=== PATIENT | female | born 1985 | race African-American/Black ===

== ENCOUNTER → 2023-04-15 07:55 | Outpatient (BNVA) | payer OTHER, SELFPAY | PROVIDERS: PCP Internal Medicine; Visit Provider Physician Assistant Surgical ==

== ENCOUNTER → 2023-06-13 07:57 | Outpatient (BNVA) | payer OTHER, SELFPAY | PROVIDERS: PCP Internal Medicine; Visit Provider Physician Assistant Surgical ==

== ENCOUNTER → 2023-06-30 08:36 | Outpatient (BNVA) | payer OTHER, SELFPAY | PROVIDERS: PCP Internal Medicine; Visit Provider Surgery ==

== ENCOUNTER 2023-07-18 07:57 | Outpatient (AMB) | payer OTHER, SELFPAY ==
--- NOTE | 2023-07-18 14:42 | A.OFFVIS_ITS ---
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 HPI Details Start time: 2.37pm, End time: 3.16pm ?I spent 34 minutes speaking with the patient on the phone plus an additional 5 minutes reviewing and updating records for a total of 39 minutes HPI Comments History of Present Illness Details Previous weight loss efforts: Weight Watchers, Nutrisystem, Intermittent fasting Wakes up: 6am, Sleeps: 10pm Breakfast: 8.30am (landis, egg cheese, Icelandic muffin, avocado with bread) Lunch: 12pm (salads, soup) Dinner: 8pm (rice, fish, pasta) Snacks: 10am (hummus, cheese and crackers), 9pm (chips and chocolate) Exercise: Gym, has home Elliptical Fluids: Coffee (1 cup/day with cream and sugar), tea: none, soda: none, juice: daily (apple/orange juice), ETOH: 2/wk (rum or vodka) PFSH Medical History (Updated 07/18/23 @ 14:45 by Babak Jimenez MD) Insomnia Anxiety Depression Morbid obesity Surgical History (Updated 07/18/23 @ 14:45 by Babak Jimenez MD) History of delivery Hx of breast reduction, elective Social History (Updated 06/13/23 @ 08:28 by Shayna Wu CMA) Alcohol intake: current Alcohol intake frequency: a few times a week Alcohol type: wine Patient Tobacco Use Status: Never used Tobacco Use of substances other than those prescribed or required for medical reasons: No Assessment & Plan Assessment & Plan (1) Morbid obesity: Code(s): E66.01 - Morbid (severe) obesity due to excess calories Plan: 1.? Plan for lap sleeve gastrectomy. If diaphragmatic or ventral hernias are present at time of surgery, these will be repaired laparoscopically as well. Risks and complications were discussed in detail including possible conversion to an open procedure, anastomotic leak, bleeding requiring transfusion, small bowel obstruction, , DVT and pulmonary embolism, cardiac, or pulmonary complications, as ferry terminal agent complications such as anastomotic ulcer, insufficient weight loss and vitamin deficiencies. I emphasized the importance of close follow-up, adherence to instructions and good communication. 2. Nutritional counseling. Start with 2 CELEBRATE REBUILD protein (buy at [facility] [employer] [facility]) shakes (ONE scoop EACH in 8oz low fat unsweetened almond milk each) at 7am-9am and 10am-12pm, 2 protein bars (CELEBRATE protein bars, buy at [facility] [employer] [facility]) at 1pm-3pm and 4pm-6pm, dinner at 7pm (10 forks of protein and 10 forks of salad/vegetables) AND another HALF Celebrate protein bar after dinner at 9pm-10pm. So you do 2 protein shakes, 2.5 protein bars and one meal per day. Meal to include lean meat (beef, fish, pork, turkey, chicken), or nepalese yogurt, or egg whites, or beans with a salad with olive oil and fruits (berries, pears, apples, kiwi). Avoid salt, breads, potatoes, rice, pasta, desserts. 3. Each shake would be drunk slowly, like coffee in a period of 2 hours. You may add your coffee into your shakes, if flavors match. 4. Cut each bar in 4 pieces and eat each piece in 30min ?to make each bar last 2 hours. 5. I emphasized the importance of measuring accurately the food portion and measure it when serving the food in plate 6. The meal portions include 10 full-size forks of meat and 10 full-size forks of salad. You always eat the meat portion but you can replace up to 5 forks for salad/vegetables with rice, potatoes or pasta, or a fruit ?if you like. The less you do it the better weight loss will be. 7. One full-size fork is what it can be scooped on the fork without falling aside and not what can be bit with the fork. Use regular forks like those you find in a typical restaurant. 8.? Please send me weight measurements as soon as possible and then once a week. Always include your diet and exercise plan. 9. Start Elliptical with an incline of 2.0 and resistance of 4.0. Increase resistance by 1 every 3 min to a max resistance of 10.0, and repeat cycles for 300 calories. Goal is to burn 2000 calories per week on exercise, which means either 300 calories daily, or 400 calories 5 days per week, or 500 calories 4 days per week, or 650 calories 3 days per week. 10.?It is important of avoiding and for at least 18 months postoperatively and has been discussed at the infosession. 11. Goal is to lose at least 1.5-2lbs per week 12. Goal to lose 10% of your weight before surgery, which is about 25lbs. Ultimate weight goal: 229lbs before surgery 13. Please follow the diet plan exactly without any change. If you don't like something about the plan or you feel hungry you need to communicate with me so I can help you revise the plan. You should not change the plan yourself. Orders: Orders Hemoglobin A1c Today E66.01 - Morbid (severe) obesity due to excess calories H Pylori Breath Test Today E66.01 - Morbid (severe) obesity due to excess calories Comprehensive Met. Panel Today E66.01 - Morbid (severe) obesity due to excess calories Vitamin B12 and Folate Today E66.01 - Morbid (severe) obesity due to excess calories Zinc Today E66.01 - Morbid (severe) obesity due to excess calories Ferritin Today E66.01 - Morbid (severe) obesity due to excess calories XR chest 2V Today E66.01 - Morbid (severe) obesity due to excess calories FL upper GI w air Today E66.01 - Morbid (severe) obesity due to excess calories Insulin Today E66.01 - Morbid (severe) obesity due to excess calories Complete Blood Count Auto Diff Today E66.01 - Morbid (severe) obesity due to excess calories Lipid Panel Today E66.01 - Morbid (severe) obesity due to excess calories IRON PROFILE Today E66.01 - Morbid (severe) obesity due to excess calories C Reactive Protein Today E66.01 - Morbid (severe) obesity due to excess calories Vitamin B1 Today E66.01 - Morbid (severe) obesity due to excess calories Vitamin A Today E66.01 - Morbid (severe) obesity due to excess calories TSH reflex Free T4 Today E66.01 - Morbid (severe) obesity due to excess calories Vitamin D 25-OH Total Today E66.01 - Morbid (severe) obesity due to excess calories US abdomen comp w elastography Today E66.01 - Morbid (severe) obesity due to excess calories ECG 12 lead EKG Today E66.01 - Morbid (severe) obesity due to excess calories Referrals Behavioral Health Referral E66.01 - Morbid (severe) obesity due to excess calories Nutrition/Dietitian Referral E66.01 - Morbid (severe) obesity due to excess calories Telehealth Telehealth Location of provider rendering services: practice address Location of patient: address on file Patient Identification confirmed using: Name, : Yes Telehealth method: voice only Patient verbally consented to treatment: Yes Patient verbally consented to billing insurance company: Yes Patient informed of any privacy concerns related to visit: Yes Minutes spent on Phone/Video with Pt.: 39 Coding Level of Care Code Tele New Pt Level 3 (88351) Diagnoses Morbid obesity E66.01 Time Spent (min) 39
[2023-07-18 14:52] VITALS: BMI 40.5
== END 2023-07-18 15:17 | disposition home or self-care (01) ==
PROVIDERS: PCP Internal Medicine; Visit Provider Surgery
DX: E66.01 Morbid (severe) obesity due to excess calories (principal)
CPT/HCPCS: 99203

== ENCOUNTER → 2023-07-18 07:57 | Outpatient (BNVA) | payer OTHER, SELFPAY | PROVIDERS: PCP Internal Medicine; Visit Provider Surgery ==

== ENCOUNTER 2023-07-31 07:23 | Outpatient (REF) | payer OTHER, SELFPAY ==
[2023-07-31 07:41] LABS: MANUAL DIFF FLAG NO
[2023-07-31 07:52] LABS: Basophils Percent Auto 0.5 % (0-2); Eosinophils Absolute Auto 0.1 X10*3/uL (0.0-0.4); Eosinophils Percent Auto 0.9 % (0-4); Hematocrit 38.1 % (37.0-47.0); Hemoglobin 12.2 g/dl (12.0-16.0); Imm Gran Abs Auto 0.01 X10*3/uL (0.00-0.03); Imm Gran Pct Auto 0.2 % (0.0-0.4); Lymphocytes Absolute Auto 2.2 X10*3/uL (1.2-4.9); Lymphocytes Percent Auto 33.4 % (20-40); Mean Corpuscular Volume 87.6 fL (80.0-98.0); Mean Platelet Volume 9.9 fL (9.4-12.3); Monocytes Absolute Auto 0.4 X10*3/uL (0.1-1.2); Monocytes Percent Auto 5.9 % (2-11); Neutrophils Absolute Auto 3.8 x10*3/uL (2.0-8.3); Neutrophils Percent Auto 59.1 % (45-73); Platelet Count 261 X10*3/uL (160-400); Red Blood Count 4.35 X10*6/uL (4.20-5.50); Red Cell Distribution Width 13.1 % (11.0-16.0); White Blood Count 6.5 X10*3/uL (4.8-10.8)
[2023-07-31 08:01] LABS: Estimated Average Glucose 120 mg/dL; Hemoglobin A1c % 5.8 % (<6.0)
[2023-07-31 08:32] LABS: Alanine Aminotransferase 21 U/L (0-31); Alkaline Phosphatase 57 U/L (39-117); Anion Gap 14 (12-20); Aspartate Amino Transferase 19 U/L (5-31); Bilirubin Total 0.4 mg/dL (0.0-1.0); Blood Urea Nitrogen 12 mg/dL (9-16); C Reactive Protein 0.13 mg/dL (< or = 0.50); Calcium 9.2 mg/dL (8.4-10.2); Carbon Dioxide 23 mmol/L (22-29); Chloride 108 mmol/L (96-108); Cholesterol 165 mg/dL (<200); Estimated Glomerular Filt Rate > 60; Glucose Random 109 mg/dL (60-115); HDL Cholesterol 72 mg/dL (>40); Iron 118 mcg/dL (30-160); LDL Cholesterol Calculated 75 mg/dL (<100); Percent Iron Saturation 35 % (15-50); Potassium 3.8 mmol/L (3.3-5.1); Sodium 141 mmol/L (135-145); Total Iron Binding Capacity 337 mcg/dL (228-428); Total Protein 7.3 g/dL (6.5-8.0); Triglycerides 93 mg/dL (<150); Unsaturated Iron Binding 219 ug/dL
[2023-07-31 08:53] LABS: Folate 10.1 ng/mL (> or = 4.0); Vitamin B12 369 pg/mL (200-900)
[2023-07-31 08:57] LABS: Ferritin 120 ng/mL (10-122); TSH reflex Free T4 0.59 uIU/mL (0.32-4.0); Vitamin D 25-OH Total 15.7 ng/mL (>30)
[2023-07-31 09:08] LABS: Insulin 10 uU/mL (2-29)
[2023-08-02 15:59] LABS: Zinc 68 mcg/dL (60-130)
[2023-08-05 02:53] LABS: Vitamin A 50 mcg/dL (38-98)
[2023-08-05 15:48] LABS: Vitamin B1 <6 nmol/L (8-30)
== END 2023-07-31 07:24 | disposition home or self-care (01) ==
LOC: HO.LAB 07:23
PROVIDERS: PCP Internal Medicine; Visit Provider Surgery
DX: E66.01 Morbid (severe) obesity due to excess calories (principal)
CPT/HCPCS: 36415; 80053; 80061; 82306; 82607; 82728; 82746; 83036; 83525; 83540; 84425; 84443; 84590; 84630; 85025; 86140

== ENCOUNTER 2023-11-26 16:37 | Emergency (ER) | payer OTHER, SELFPAY ==
[2023-11-26 16:39] VITALS: BP 142/91; PULSE 79; RESP 18; TEMP 36.8; O2SAT 100; BMI 41.2
--- NOTE | 2023-11-26 16:52 | ED_ITS ---
HPI - General Adult General Chief complaint: Skin/Abscess/Foreign Body Stated complaint: earring stuck in ear, automatic teller machine servicer unable to remove Time Seen by Provider: 11/26/23 16:52 Source: patient Mode of arrival: ambulatory Limitations: no limitations History of Present Illness ED Provider: Madeleine Devries PA-C HPI narrative: 38-year-old female presents for evaluation of an earring stuck in her right tragus piercing. She was trying to take out a small hoop-shaped earring from the piercing but was unable to get the clasp open. Tried multiple times and had automatic teller machine servicer attempt to take it out but they were unsuccessful. Onset (ago): hour(s) Relieving factors: none Exacerbating factors: none Associated symptoms: denies other symptoms Treatments prior to arrival: other (multiple attempts at removal) Related Data Home Medications ?Medication ?Instructions ?Recorded ?Confirmed citalopram 20 mg tablet 20 mg PO DAILY 06/13/23 07/18/23 hydroxyzine HCl 50 mg tablet 50 mg PO TID 06/13/23 07/18/23 trazodone 50 mg tablet 50 mg PO BEDTIME 06/13/23 07/18/23 Previous Rx's ?Medication ?Instructions ?Recorded cholecalciferol (vitamin D3) 125 125 mcg PO DAILY #90 caps 11/04/23 mcg (5,000 unit) capsule mecobalamin (vitamin B12) 1,000 1,000 mcg sublingual DAILY #90 tabs 11/04/23 mcg disintegrating tablet,sublingual Allergies Allergy/AdvReac Type Severity Reaction Status Date / Time No Known Allergies Allergy Verified 11/26/23 16:41 Review of Systems 2 Constitutional: Constitutional: Reports no additional constitutional complaints, Denies chills, Denies fever(s) and Denies night sweats Eyes: Eyes: Reports no additional eye complaints, Denies blurry vision, Denies change in vision, Denies diplopia, Denies eye discharge, Denies loss of vision and Denies eye pain ENT: Denies dizziness Comments: tragus piercing stuck Cardiovascular: Cardiovascular: Reports no additional cardiovascular complaints, Denies chest pain, Denies lightheadedness, Denies Loss of Consciousness and Denies dyspnea Respiratory: Respiratory: Reports no additional respiratory complaints and Denies dyspnea Gastrointestinal: Gastrointestinal: Reports no additional gastrointestinal complaints, Denies abdominal pain, Denies melena, Denies hematochezia, Denies change in bowel habits and Denies change in stool character Genitourinary: Genitourinary: Denies hematuria, Denies urinary frequency, Denies dysuria, Denies urinary incontinence, Denies urinary hesitancy and Denies urinary urgency Musculoskeletal: Musculoskeletal: Reports no additional musculoskeletal complaints, Denies numbness and Denies tingling Neurologic: Denies dizziness, Denies loss of vision, Denies numbness and Denies tingling Psychiatric: Psychiatric: Reports no additional psychiatric complaints Endocrine: Endocrine: Reports no additional endocrine complaints Hematologic/Lymphatic: Hematologic/Lymphatic: Reports no additional hematologic/lymphatic complaints Allergic/Immunologic: Allergic/Immunologic: Reports no additional allergic/immunologic complaints [facility] Past Medical History Attestation statement: The following information was validated with the patient. Source: old records reviewed and nursing notes reviewed Medical History Insomnia Anxiety Depression Morbid obesity Surgical History History of delivery Hx of breast reduction, elective Social History Social History Alcohol intake: current Alcohol intake frequency: a few times a week Alcohol type: wine Patient Tobacco Use Status: Never used Tobacco Advance Directives: No Advance Directives Information Provided: No Physical Exam ED Vital Signs: Vital Signs - 24 hr 11/26/23 16:39 11/26/23 17:20 Temperature 98.3 F 98.3 F Pulse Rate 79 79 Respiratory Rate 18 18 Blood Pressure 142/91 H 142/91 H Pulse Oximetry 100 100 Oxygen Delivery Method Room Air Room Air BMI result Body Mass Index 41.2 Const General: cooperative, no acute distress, alert and awake Nutritional Appearance: well nourished Orientation/consciousness: patient oriented x3 Limitations: no limitations HENMT Head: Yes normal to inspection and Yes atraumatic Ears: hearing grossly normal bilaterally Outer ear/TM images: 2 1. tragus piercing that would not unclasp General nose exam: Normal external nose present, no nasal discharge noted and no epistaxis Face and sinus: Yes normal facial exam, No abrasion and No laceration Mouth: Normal oral and palatal mucosa present, no drooling and no muffled voice Eyes General: appearance normal, both eyes and all related structures Periorbital: periorbital findings normal Eyelids: Yes eyelids normal Conjunctivae: conjunctivae normal Pupils: Equal, round and reactive pupils present EOM: EOMs intact bilaterally Neck Neck: Yes normal visual inspection, Yes full ROM and Yes no lymphadenopathy Chest Chest palpation & inspection: normal inspection of the chest Resp Effort & Inspection: normal respiratory effort and able to speak in complete sentences GI Inspection: Yes normal to inspection Neuro General: patient oriented x3 and moves all extremities Cranial nerves: Yes Equal, round and reactive pupils present Cognition (Neuro): normal cognition Motor exam (neuro): 5/5 motor strength present throughout Sensory Exam: Normal double simultaneous stimulation for sensation Coordination: [id number] test normal Extrem General: Yes normal to inspection, Yes full ROM and Yes capillary refill normal Psych Appearance: grossly normal Mental Status: mental status grossly normal Affect: normal affect Attitude: cooperative Thought process: Normal thought process present Thought content: Normal thought content present Insight: Good insight present (Psych) Procedures Foreign Body Removal Time Out Performed: yes Site: right and ear Description of foreign body: other (piercing) Sedation/Analgesia: none Technique: manual removal Confirmed by:: direct visualization Complications: none Post-procedure exam: awake, alert, normal BP, normal HR and normal O2 sat Neurovascular: normal distal pulse, normal capillary fill, distal motor function normal, no signs of compartment syndrome and no change from pre-procedure Medical Decision Making Medical Decision Making MDM Narrative: Patient is a 38 year old assigned female at with a history of anxiety, depression, and insomnia presenting to the emergency department today with a stuck ear piercing. Patient's physical exam was as noted in the physical exam portion of this note. I explained my physical exam findings to the patient. I answered all questions asked by the patient. Patient's earring was removed, without incident, per procedure note. I stressed the importance of the patient taking her medication as prescribed. I stressed the importance of the patient following up with her primary care provider. I stressed the importance of the patient returning to the emergency department immediately if she were to develop any dizziness, shortness of breath, difficulty breathing, chest pain, blurry vision, loss of vision, nausea, vomiting, abdominal pain, fever, chills, back pain, or any other complaints. Patient verbalized agreement and understanding with this treatment plan and discharge. Differential Diagnosis Differential Diagnoses: The differential diagnosis associated with the presentation includes Retained foreign body in ear Inflammation of external ear Allergic reaction to earring Admission/Observation Consideration of admission/observation: Escalation of care including admission/observation considered Patient would have been admitted to the hospital had her clinical presentation warranted hospital admission. Discharge Plan Discharge Clinical Impression: Embedded earring Patient Disposition: Home, Self-Care Additional Instructions: Only place larger jewelry in your right tragus piercing until the swelling goes down. Follow up with your primary care provider. Return to the emergency department immediately if your symptoms worsen or if you develop any dizziness, shortness of breath, difficulty breathing, chest pain, blurry vision, loss of vision, nausea, vomiting, abdominal pain, fever, chills, back pain, or any other complaints. Prescriptions: No Action cholecalciferol (vitamin D3) 125 mcg (5,000 unit) capsule 125 mcg PO DAILY Qty: 90 0RF mecobalamin (vitamin B12) 1,000 mcg tablet,disintegrating 1,000 mcg sublingual DAILY Qty: 90 0RF Rx Instructions: place tablet under tongue and allow to dissolve for at least30 secs before swallowing citalopram 20 mg tablet 20 mg PO DAILY trazodone 50 mg tablet 50 mg PO BEDTIME hydroxyzine HCl 50 mg tablet 50 mg PO TID Referrals: Carlotta Wilkinson MD [Primary Care Provider] - Interventions: ED Discharge Assessment Last Done: 11/26/23 17:20 Discharge Date/Time: 11/26/23 17:21 Print Language: Lithuanian
[2023-11-26 17:20] VITALS: BP 142/91; PULSE 79; RESP 18; TEMP 36.8; O2SAT 100
== END 2023-11-26 17:21 | disposition home or self-care (01) ==
PROVIDERS: Emergency Provider Internal Medicine; PCP Internal Medicine
DX: T16.1XXA Foreign body in right ear, initial encounter (principal); H92.01 Otalgia, right ear; W44.D4XA Magnetic metal jewelry entering into or through a natural orifice, initial encounter; Y93.9 Activity, unspecified; Y92.9 Unspecified place or not applicable; Y99.8 Other external cause status
CPT/HCPCS: 69200; 99282; 99284

== ENCOUNTER → 2024-03-18 07:46 | Outpatient (BNVA) | payer OTHER, SELFPAY | PROVIDERS: PCP Internal Medicine; Visit Provider Surgery ==

== ENCOUNTER 2024-04-09 07:56 | Outpatient (AMB) | payer OTHER, SELFPAY ==
--- NOTE | 2024-04-09 08:12 | MHC.OFFVISWM ---
VS Expanded 04/09/24 08:28 Height 5 ft 6.5 in Weight 251 lb 8 oz BMI 40.0 Body Fat % 42.7 Body Fat Mass 107.6 Fat Free Mass 144.2 Visceral Fat Rating 11 Body Water % 40 Body Water Mass 100.8 Basal Metabolic Rate/Score 1,974 Intake Visit Reasons: TV Re-Est SWL BMI 40.0 Allergies No Known Allergies Allergy (Verified 04/09/24 08:12) Medication List - Last Reconciled 04/09/24 by Babak Jimenez MD citalopram 20 mg PO DAILY hydroxyzine HCl 50 mg PO TID trazodone 50 mg PO BEDTIME HPI HPI TV Re-Est SWL BMI 40.0: Details: Start time: 8.00am, End time: 8.30am ?I spent 25 minutes speaking with the patient on the phone plus an additional 5 minutes reviewing and updating records for a total of 30 minutes HPI Comments Details: Previous weight loss efforts: Weight Watchers, Nutrisystem, Intermittent fasting, [facility] (left the program, gained about 15lbs which she lost using Wegovy for 2 months. Wegovy had to be discontinued as insurance did not cover it any longer. Now she weighs as much as she weighed when she first came in the program Wakes up: 6am, Sleeps: 10pm Breakfast: 8.30am (landis, egg cheese, Hungarian muffin, avocado with bread) Lunch: 12pm (salads, soup) Dinner: 8pm (rice, fish, pasta) Snacks: 10am (hummus, cheese and crackers), 9pm (chips and chocolate) Exercise: Gym, has home Elliptical Fluids: Coffee (1 cup/day with cream and sugar), tea: none, soda: none, juice: daily (apple/orange juice), ETOH: 2/wk (rum or vodka) [facility] Medical History Insomnia Anxiety Depression Morbid obesity Surgical History History of delivery Hx of breast reduction, elective Social History Alcohol intake: current Alcohol intake frequency: a few times a week Alcohol type: wine Patient Tobacco Use Status: Never used Tobacco Telehealth Telehealth Telehealth Platform: Telephone Location of provider rendering services: practice address Location of patient: address on file Patient Identification confirmed using: Name, : Yes Telehealth method: voice only Patient verbally consented to treatment: Yes Patient verbally consented to billing insurance company: Yes Patient informed of any privacy concerns related to visit: Yes Minutes spent on Phone/Video with Pt.: 30 Assessment & Plan Assessment & Plan (1) Morbid obesity: Code(s): E66.01 - Morbid (severe) obesity due to excess calories Category: Medical Plan: 1.? Plan for lap sleeve gastrectomy. If diaphragmatic or ventral hernias are present at time of surgery, these will be repaired laparoscopically as well. Risks and complications were discussed in detail including possible conversion to an open procedure, anastomotic leak, bleeding requiring transfusion, small bowel obstruction, , DVT and pulmonary embolism, cardiac, or pulmonary complications, as intermodal customer service complications such as anastomotic ulcer, insufficient weight loss and vitamin deficiencies. I emphasized the importance of close follow-up, adherence to instructions and good communication. 2. Nutritional counseling. Start with 2 CELEBRATE REBUILD protein (buy at [facility]) shakes (ONE scoop EACH in 8oz low fat unsweetened almond milk each) at 7am-9am and 10am-12pm, 2 protein bars (CELEBRATE protein bars, buy at [facility] [employer] [facility]) at 1pm-3pm and 4pm-6pm, dinner at 7pm (10 forks of protein and 10 forks of salad/vegetables) AND another HALF Celebrate protein bar after dinner at 9pm-10pm. So you do 2 protein shakes, 2.5 protein bars and one meal per day. Meal to include lean meat (beef, fish, pork, turkey, chicken), or solomon islander yogurt, or egg whites, or beans with a salad with olive oil and fruits (berries, pears, apples, kiwi). Avoid salt, breads, potatoes, rice, pasta, desserts. 3. Each shake would be drunk slowly, like coffee in a period of 2 hours. You may add your coffee into your shakes, if flavors match. 4. Cut each bar in 4 pieces and eat each piece in 30min ?to make each bar last 2 hours. 5. I emphasized the importance of measuring accurately the food portion and measure it when serving the food in plate 6. The meal portions include 10 full-size forks of meat and 10 full-size forks of salad. You always eat the meat portion but you can replace up to 5 forks for salad/vegetables with rice, potatoes or pasta, or a fruit ?if you like. The less you do it the better weight loss will be. 7. One full-size fork is what it can be scooped on the fork without falling aside and not what can be bit with the fork. Use regular forks like those you find in a typical restaurant. 8.? Please send me weight measurements as soon as possible and then once a week. Always include your diet and exercise plan. 9. Start Elliptical with an incline of 2.0 and resistance of 4.0. Increase resistance by 1 every 3 min to a max resistance of 10.0, and repeat cycles for 300 calories. Goal is to burn 2000 calories per week on exercise, which means either 300 calories daily, or 400 calories 5 days per week, or 500 calories 4 days per week, or 650 calories 3 days per week. 10.?It is important of avoiding and for at least 18 months postoperatively and has been discussed at the infosession. 11. Goal is to lose at least 1.5-2lbs per week 12. Goal to lose 10% of your weight before surgery, which is about 25lbs. Ultimate weight goal: 229lbs before surgery 13. Please follow the diet plan exactly without any change. If you don't like something about the plan or you feel hungry you need to communicate with me so I can help you revise the plan. You should not change the plan yourself. Orders: Orders Lipid Panel Today E66.01 - Morbid (severe) obesity due to excess calories IRON PROFILE Today E66.01 - Morbid (severe) obesity due to excess calories Comprehensive Met. Panel Today E66.01 - Morbid (severe) obesity due to excess calories Vitamin B12 and Folate Today E66.01 - Morbid (severe) obesity due to excess calories Zinc Today E66.01 - Morbid (severe) obesity due to excess calories C Reactive Protein Today E66.01 - Morbid (severe) obesity due to excess calories Vitamin A Today E66.01 - Morbid (severe) obesity due to excess calories TSH reflex Free T4 Today E66.01 - Morbid (severe) obesity due to excess calories Vitamin D 25-OH Total Today E66.01 - Morbid (severe) obesity due to excess calories ECG 12 lead EKG Today E66.01 - Morbid (severe) obesity due to excess calories FL upper GI w air Today E66.01 - Morbid (severe) obesity due to excess calories Insulin Today E66.01 - Morbid (severe) obesity due to excess calories Hemoglobin A1c Today E66.01 - Morbid (severe) obesity due to excess calories H Pylori Breath Test Today E66.01 - Morbid (severe) obesity due to excess calories Complete Blood Count Auto Diff Today E66.01 - Morbid (severe) obesity due to excess calories Vitamin B1 Today E66.01 - Morbid (severe) obesity due to excess calories Ferritin Today E66.01 - Morbid (severe) obesity due to excess calories US abdomen comp w elastography Today E66.01 - Morbid (severe) obesity due to excess calories XR chest 2V Today E66.01 - Morbid (severe) obesity due to excess calories Referrals Behavioral Health Referral E66.01 - Morbid (severe) obesity due to excess calories Nutrition/Dietitian Referral E66.01 - Morbid (severe) obesity due to excess calories
[2024-04-09 08:28] VITALS: BMI 40.0
== END 2024-04-09 08:30 | disposition home or self-care (01) ==
LOC: HO.HBS 07:56
PROVIDERS: PCP Internal Medicine; Visit Provider Surgery
DX: E66.813 Obesity, class 3 (principal); Z68.41 Body mass index [BMI] 40.0-44.9, adult
CPT/HCPCS: 99443

== ENCOUNTER → 2024-04-09 07:56 | Outpatient (BNVA) | payer OTHER, SELFPAY | PROVIDERS: PCP Internal Medicine; Visit Provider Surgery ==

== ENCOUNTER 2024-04-16 07:30 | Outpatient (REF) | payer OTHER, SELFPAY ==
[2024-04-16 08:10] LABS: Basophils Percent Auto 0.3 % (0-2); Eosinophils Percent Auto 0.7 % (0-4); Hematocrit 36.9 % (37.0-47.0); Hemoglobin 12.1 g/dl (12.0-16.0); Imm Gran Abs Auto 0.02 X10*3/uL (0.00-0.03); Imm Gran Pct Auto 0.3 % (0.0-0.4); Lymphocytes Percent Auto 32.5 % (20-40); Mean Corpuscular HGB Conc 32.8 g/dl (31.0-35.0); Mean Corpuscular Hemoglobin 28.2 pg (27.0-33.0); Mean Platelet Volume 10.1 fL (9.4-12.3); Monocytes Absolute Auto 0.4 X10*3/uL (0.1-1.2); Monocytes Percent Auto 6.7 % (2-11); NRBC Pct Auto 0.3 /100WBC (0.0-0.2); Neutrophils Absolute Auto 3.7 x10*3/uL (2.0-8.3); Neutrophils Percent Auto 59.5 % (45-73); Red Blood Count 4.29 X10*6/uL (4.20-5.50); Red Cell Distribution Width 13.7 % (11.0-16.0)
[2024-04-16 08:11] LABS: Platelet Count 225 X10*3/uL (160-400); White Blood Count 6.1 X10*3/uL (4.8-10.8)
[2024-04-16 08:26] LABS: Estimated Average Glucose 114 mg/dL; Hemoglobin A1C 119.6717 umol/L; Hemoglobin A1c % 5.6 % (<6.0); Total Hemoglobin (HGBA1C) 3218.0834 umol/L
[2024-04-16 08:44] LABS: Alanine Aminotransferase 33 U/L (0-31); Albumin Level 3.9 g/dL (3.5-5.0); Alkaline Phosphatase 54 U/L (39-117); Anion Gap 13 (12-20); Aspartate Amino Transferase 28 U/L (5-31); Bilirubin Total 0.3 mg/dL (0.0-1.0); Blood Urea Nitrogen 8 mg/dL (9-16); C Reactive Protein 0.11 mg/dL (< or = 0.50); Calcium 9.1 mg/dL (8.4-10.2); Carbon Dioxide 25 mmol/L (22-29); Chloride 105 mmol/L (96-108); Cholesterol 158 mg/dL (<200); Estimated Glomerular Filt Rate > 60; Glucose Random 104 mg/dL (60-115); HDL Cholesterol 69 mg/dL (>40); Iron 99 mcg/dL (30-160); LDL Cholesterol Calculated 75 mg/dL (<100); Percent Iron Saturation 31 % (15-50); Potassium 3.9 mmol/L (3.3-5.1); Sodium 139 mmol/L (135-145); Total Iron Binding Capacity 319 mcg/dL (228-428); Total Protein 7.2 g/dL (6.5-8.0); Triglycerides 71 mg/dL (<150); Unsaturated Iron Binding 220 ug/dL
[2024-04-16 09:04] LABS: Ferritin 161 ng/mL (10-122); Insulin 10 uU/mL (2-29); TSH reflex Free T4 0.41 uIU/mL (0.32-4.0)
[2024-04-16 09:21] LABS: Vitamin B12 475 pg/mL (200-900)
[2024-04-20 17:34] LABS: Zinc 62 mcg/dL (60-130)
[2024-04-21 23:18] LABS: Vitamin A 59 mcg/dL (38-98)
[2024-04-23 16:03] LABS: Vitamin B1 <6 nmol/L (8-30)
== END 2024-04-16 07:31 | disposition home or self-care (01) ==
LOC: HO.LAB 07:30
PROVIDERS: PCP Internal Medicine; Visit Provider Surgery
DX: E66.01 Morbid (severe) obesity due to excess calories (principal); Z13.1 Encounter for screening for diabetes mellitus
CPT/HCPCS: 36415; 80053; 80061; 82306; 82607; 82728; 82746; 83036; 83525; 83540; 84425; 84443; 84590; 84630; 85025; 86140

== ENCOUNTER 2024-04-22 07:10 | Outpatient (REF) | payer OTHER, SELFPAY | END 2024-04-22 07:11 | disposition home or self-care (01) | LOC: HO.XRAY 07:10 | PROVIDERS: PCP Internal Medicine; Visit Provider Surgery | DX: E66.01 Morbid (severe) obesity due to excess calories (principal) | CPT/HCPCS: 71046 ==

== ENCOUNTER 2024-04-26 08:20 | Outpatient (REF) | payer OTHER, SELFPAY | END 2024-04-26 08:21 | disposition home or self-care (01) | LOC: HO.US 08:20 | PROVIDERS: PCP Internal Medicine; Visit Provider Surgery | DX: E66.01 Morbid (severe) obesity due to excess calories (principal) | CPT/HCPCS: 76700; 76981 ==

== ENCOUNTER → 2024-04-26 08:21 | Outpatient (BNV) | payer OTHER, SELFPAY | PROVIDERS: PCP Internal Medicine; Visit Provider Radiology Diagnostic Radiology | DX: E66.01 Morbid (severe) obesity due to excess calories (principal) | CPT/HCPCS: 76700 ==

== ENCOUNTER 2024-04-28 12:12 | Outpatient (AMB) | payer OTHER, SELFPAY ==
--- NOTE | 2024-04-28 12:00 | A.OFFWM_ITS ---
Intake Intake Visit Reasons: VIDEO BH Intake Allergies No Known Allergies Allergy (Verified 04/09/24 08:12) [facility] Medical History Insomnia Anxiety Depression Morbid obesity Surgical History History of delivery Hx of breast reduction, elective Social History Alcohol intake: current Alcohol intake frequency: a few times a week Alcohol type: wine Patient Tobacco Use Status: Never used Tobacco Behavioral Health Assessment Weight Management Therapy 2 Therapy Notes Details PT is a 39 years old female, who presents for a visit to complete BH assessment as part of surgical weight loss program. PT states she's interested in bariatric surgery as next step to continue working on adopting and maintaining a healthy lifestyle as she has a child and obesity runs in her family so she can be a better example for her son and family. PT reported she attended counseling over a year ago due to depression and anxiety. Her PCP currently prescribes her with Citalopram 20mg 1 at day for d epression, Hydroxyzine 50mg 1 as needed for anxiety and Trazodone 50mg 1 every night for sleep and depression. PT reports medications are helpful and she feels table on these combination. PT denies ever been in crisis or inpatient for mental health and there is no history and/or current concern about SI/SA and self-harm or other harm. There is also no evidence for stress/emotional-eating, and scores from BES suggest low risk for binge eating behavior. PHQ- scores also showed no active symptoms/concerns with depression. On the other hand, mental status exam is within normal limits, suggesting person's functioning is not impaired. At this time patient is cleared from the behavioral health standpoint. Presenting Concerns Referral Source WMP-Provider. PT meet with Dr Ponce henry on Reason for referral Completion of behavioral health assessment as part of process for weight-loss surgery. Precipitating Event Obesity. Living Situation Current Living Situation Rent At risk of losing current housing? No Satisfied with current living situation? Yes Comments PT lives with her son. Food/Weight/Diet Expectations of change Initial Goal to lose 10% of her weight before surgery, which is about 25lbs. Ultimate weight goal: 229lbs before surgery Patient wants to be able to adopt and maintain a healthy lifestyle as she has a child and obesity runs in her family so she can be a better example for her son and family. Most recent weight: 241Lbs PT is implementing the following: Current meal plan: 2 shakes, 2.5 bars and 1 meal (12F/12F) Exercise plan: burning 2000 calories at week. She uses an elliptical at home, and tries to use it daily History/Relationship with food PT reports she tends to skip breakfast and ends up eating mostly at night time. Also has has a sweet tooth. She likes food and enjoys pasta and soups. PT reports she tends to eat more comfort food when under stress. PT reports not being a big red meat eater, she does chicken, fish, eggs and some grains. Example of meals before starting the program: Breakfast: skip Lunch: @12-1pm, anything from cafeteria at work. If at home skips. Dinner: after 8pm. Pasta, Estonian food or take out. Snacks: while at work she grabs fruit or chips. While at home it was cookies, cake, ice-cream. Drinks/Liquids: 1 cup of coffee with cream and sugar, juice 2 cups at day or less. History/Relationship with weight PT reports she has always been a bigger person ever since 6th grade. She had her son 10 years ago and gained around 25Lbs. In the last 10 years, the patient's Lowest weight was 210Lbs and highest 262Lbs. History/Relationship with dieting Walking, gym, increase water intake. Some diets, such as intermittent fasting, weight watchers, Tried Wegovy Binge Eating Do you frequently eat large amounts of food in short periods of time, not feeling physically hungry? No Do you feel out of control when you eat a large amount of food in a short period of time? Yes Do you eat large amounts of food rapidly and typically alone? No Night Eating Do you wake up at least once during the night to eat? Yes If you wake up in the night, do you find that it is necessary to eat something in order to fall back asleep? No Do you have little or no appetite in the morning and feel very hungry in the evening, often overeating between dinner and when you go to bed? Yes Social History Family history and relationship Single mother, never . She has a 10 year old son. father when she was 5. She was raised by her mother and grandmother who . She is very close to her mom and son. Parental/Familial roll former obligations 10 y/o son. Developmental history and status None. Currently WNL. Social support Her son and mother. Some friends. Community support PCP. Mu-Ism/Spirituality Baptized [employer] but feels more spiritual than adventism. Cultural/Ethnic information [place] heritage. Legal Involvement and History Current or historical involvement with the legal system? None reported. Education Highest grade completed Associates degree in ocupational therapist. Preferred learning style Visual Currently enrolled in educational program? No Interested in further educational program? 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 ) Wants help to find employment? No Meaningful activities Reading, walks, videogames, do her makeup, color. Financial Situation Describe current financial situation Comfortable and Occasional struggle Financial assistance? None Service Service? No Mental Health and Addiction Treatment Current/Past substance abuse? No Comments Alcohol: Likes Tequila, pour a nip on juice. 2 times at week at night. Cigarettes/Tobacco: None Cannabis/Edibles: None. Current/Past addictive behavior concerns? No Psychiatric history PT attended counseling over a year ago due to depression and anxiety. PCP prescribes her with Citalopram 20mg 1 at day for depression, Hydroxyzine 50mg 1 as needed for anxiety and trazodone 50mg 1 every night for sleep and depression. Pt reports medications are helpful and she feels table on these combination. PT denies ever been in crisis or inpatient for mental health. There is no history and/or current concern about SI/Sa and self-harm or other harm. Medical and Physical Health Summary Additional Medical History not covered in history None Sexual History concerns None reported. Physical exam in the last year? Yes Pain Screening Current pain? No Pain in the last few months? No Medications Is the patient compliant with medications? Yes Does the patient have Colon Guardian in place? Not applicable Does the patient use complimentary health approaches? No Trauma/Abuse History History of trauma? No Questionnaires PHQ-9 Over the last 2 weeks, how often have you been bothered by any of the following problems? 1. Little interest or pleasure in doing things: several days 2. Feeling down, depressed, or hopeless: several days 3. Trouble falling or staying asleep, or sleeping too much: several days (staying asleep) 4. Feeling tired or having little energy: not at all 5. Poor appetite or overeating: not at all 6. Feeling bad about yourself - or that you are a failure or have let yourself or your family down: several days 7. Trouble concentrating on things, such as reading the newspaper or watching television: not at all 8. Moving or speaking so slowly that other people could have noticed. Or the opposite - being so fidgety or restless that you have been moving around a lot more than usual: not at all 9. Thoughts that you would be better off or of hurting yourself in some way: not at all Total score: 4 Depression Screening Interpretation: Negative (Scores from new client pack were 18, indicating active Sx. PT disclosed she was dealing with some stress. ) Depression Screening Done: Yes 51291 - PHQ-9 Billing: Yes Source: Developed by Drs. Nirmal Mae, Shonda Kumar, Pilo Larsen and colleagues, with an educational didier from [employer]. Binge Eating Scale Group 1 A. I don't feel self-conscious about my wt. or body size when I'm with others. B. I feel concerned about how I look to others, but it normally does not make me fell disappointed with myself C. I do get self-conscious about my appearance and wt. which makes me feel disappointed in myself. D. I feel very self-conscious about my wt. and frequently I feel intense shame and disgust for myself. I try to avoid social contacts because of my self- consciousness. Response Group 1: C Group 2 A. I don't have any difficulty eating slowly in the proper manner. B. Although I seem to gobble down foods, I don't end up feeling stuffed because of eating to much. C. At times, I tend to eat quickly and then, I feel uncomfortably full afterwards. D. I have the habit of bolting down my food, without really chewing it. When this happens I usually feel uncomfortably stuffed because I've eaten to much. Response Group 2: A Group 3 A. I feel capable to control my eating urges when I want to. B. I feel like I have failed to control my eating more than the average person. C. I feel utterly helpless when it comes to feeling in control of my eating urges. D. Because I feel so helpless about controlling my eating I have become very desperate about trying to get control. Response Group 3: B Group 4 A. I don't have the habit of eating when I'm bored. B. I sometimes eat when I'm bored, but often I'm able to get busy and get my mind off food. C. I have a regular habit of eating when I'm bored, but occasionally, I can use some other activity to get my mind off eating. D. I have a strong habit of eating when I'm bored. Nothing seems to help me breath the habit. Response Group 4: C Group 5 A. I'm usually physically hungry when I eat something. B. Occasionally, I eat something on impulse even though I really am not hungry. C. I have the regular habit of eating foods, that I might not really enjoy, to satisfy a hungry feeling even though physically, I don't need the food. D. Although I'm not physically hungry, I get a hungry feeling in my mouth that only seems to be satisfied when I eat a food, like sandwich, that fills my mouth. Sometimes, when I eat the food to satisfy my mouth hunger, I then spit the food out so I won't gain weight. Response Group 5: B Group 6 A. I don't feel any guilt or self-hate after I overeat. B. After I overeat, occasionally I feel guilt or self-hate. C. Almost all the time I experience strong guilt or self-hate after I overeat. Response Group 6: B Group 7 A. I don't lose total control of my eating when dieting even after periods when I overeat. B. Sometimes when I eat a forbidden food on a diet, I feel like I blew it and eat even more. C. Frequently, I have the habit of saying to myself, I've blown it now, why not go all the way, when I overeat on a diet. When that happens I eat more. D. I have a regular habit of starting a strict diets for myself but I break the diets by going on an eating binge. My life seems to be either a feast or famine. Response Group 7: C Group 8 A. I rarely eat so much food that I feel uncomfortably stuffed afterwards. B. Usually about once a month, I each such a quantity of food, I end up feeling very stuffed. C. I have regular periods during the month when I eat large amounts of food, either at mealtime or at snacks. D. I eat so much food that I regularly feel quite uncomfortable after eating and sometimes a bit nauseous. Response Group 8: C Group 9 A. My level of calorie intake does not go up very high or go down very low on a regular basis. B. Sometimes after I overeat, I will try to reduce my caloric intake to almost nothing to compensate for the excess calories I've eaten. C. I have a regular habit of overeating during the night. It seems that my routine is not to be hungry in the morning but overeat in the evening. D. In my adult years, I have had week-long periods where I practically starve myself. This follows periods when I overeat. It seems I live a life of either feast or famine. Response Group 9: C Group 10 A. I usually am able to stop eating when I want to. I know when enough is enough. B. Every so often, I experience a compulsion to eat which I can't seem to control. C. Frequently, I experience strong urges to eat which I seem unable to control, but at other times I can control my eating urges. D. I feel incapable of controlling urges to eat. I have a fear of not being able to stop eating voluntarily. Response Group 10: A Group 11 A. I don't have any problem stopping eating when I feel full. B. I usually can stop eating when I feel full but occasionally overeat leaving me feeling uncomfortably stuffed. C. I have a problem stopping eating once I start and usually I feel uncomfortably stuffed after I eat a meal. D. Because I have a problem not being able to stop eating when I want, I sometimes have to induce vomiting to relieve my stuffed feeling. Response Group 11: B Group 12 A. I seem to eat just as much when I'm with others, Family social gatherings as when I'm by myself. B. Sometimes, when I'm with other persons, I don't eat as much as I want to eat because I'm self-conscious about my eating. C. Frequently, I eat only a small amount of food when others are present, because I'm very embarrassed about my eating. D. I feel so ashamed about overeating that I pick times to overeat when I know no one will see me. I feel like a closet eater. Response Group 12: B Group 13 A. I eat three meals a day with only an occasional between meal snack. B. I eat 3 meals a day, but I also normally snack between meals. C. When I am snacking heavily, I get in the habit of skipping regular meals. D. There are regular periods when I seem to be continually eating, with no pl anned meals. Response Group 13: B Group 14 A. I don't think much about trying to control unwanted eating urges. B. At least some of the time, I feel my thoughts are pre-occupied with trying to control my eating urges. C. I feel that frequently I spend much time thinking about how much I ate or about trying not to eat anymore. D. It seems to me that most of my waking hours are pre-occupied by thoughts about eating or not eating. I feel like I'm constantly struggling not to eat. Response Group 14: B Group 15 A. I don't think about food a great deal. B. I have strong craving for food but they last only for brief periods of time. C. I have days when I can't seem to think about anything else but food. D. Most of my days seem to be pre-occupied with thoughts about food. I feel like I live to eat. Response Group 15: B Group 16 A. I usually know whether or not I'm physically hungry. I take the right portion of food to satisfy me. B. Occasionally, I feel uncertain about knowing whether or not I'm physically hungry. A these times it's hard to know how much food I should take to satisfy me. C. Even though I might know how many calories I should eat, I don't have any idea what is a normal amount of food for me. Response Group 16: A Binge Eating Score: 18 Score less than 17 Minimal Risk Score between 18-26 Moderate Risk Score between 27-46 High Risk Assessment & Plan Assessment & Plan (1) Anxiety: Code(s): F41.9 - Anxiety disorder, unspecified (2) Depression: Code(s): F32.A - Depression, unspecified Qualifiers: Depression Type: unspecified Qualified Code(s): F32.A - Depression, unspecified Plan PT has been cleared from [facility]. she will be seen at 2-4 weeks post op. Telehealth Telehealth Telehealth [facility]: [facility] Location of provider rendering services: other Location of patient: address on file Patient Identification confirmed using: Name, : Yes Telehealth method: video Patient verbally consented to treatment: Yes Patient verbally consented to billing insurance company: Yes Patient informed of any privacy concerns related to visit: Yes Minutes spent on Phone/Video with Pt.: 60 Coding Level of Care Code New Pt Tele Psy Diag Eval (85511) Patient Type New Diagnoses Anxiety F41.9 Depression, unspecified depression type F32.A Depression Type: unspecified Additional Codes PHQ-9 - 04613 - PHQ-9 Billing: Yes ([id number]) Time Spent (min) 60
== END 2024-04-28 15:12 | disposition home or self-care (01) ==
LOC: HO.HBST 12:12
PROVIDERS: PCP Internal Medicine; Visit Provider Counselor Mental Health
DX: F32.1 Major depressive disorder, single episode, moderate (principal); F41.9 Anxiety disorder, unspecified
CPT/HCPCS: 90791

== ENCOUNTER → 2024-07-16 10:52 | Outpatient (REF) | LOC: HO.CARD 10:52 | DX: E66.01 Morbid (severe) obesity due to excess calories (principal) ==

== ENCOUNTER → 2024-07-16 10:56 | Outpatient (BNV) | payer OTHER, SELFPAY | PROVIDERS: PCP Internal Medicine; Visit Provider Internal Medicine Cardiovascular Disease | DX: I49.9 Cardiac arrhythmia, unspecified (principal) | CPT/HCPCS: 93010 ==

== ENCOUNTER 2024-07-29 15:24 | Outpatient (REF) | payer OTHER, SELFPAY ==
--- OUTSIDE RECORDS SUMMARY | 2024-07-29 16:48 | XMS_ITS | Clinical Summary ---
Author Organization 175 [facility] Address [address] [place] [address] Phone Care Team Providers Care Singe Machine Operator Name Role Phone Carlotta Wilkinson MD Primary Care Provider [phone] Allergies No known active allergies Medications hydrOXYzine [...] Due HPV, Quadrivalent 11/01/2008,06/30/2008,04/28/20 08 Hepatitis B (Lqmkdnp-U-Sxaeq , Recombivax HB-Adult) 19yo and older 06/14/2020,01/07/2020,12/08/2019 [...] Date Site/Laterality Comments BREAST REDUCTION 2009 PROCEDURE: [place] BREAST REDUCTION Medical History Medical History Date [...] 8:45 AM EDT Office Visit Adult Medicine [address] [phone] Carlotta Wilkinson MD [address] [place] [address] 10/27/2024 1:30 PM EDT Office Visit Obstetrics and Gynecology - [address] [phone] Yeimy Benson, [address] 12/22/2024 9:00 AM EDT Office Visit Adult [address] [phone] Carlotta Wilkinson MD [address] [place] [address] Health Maintenance Due Date Last Done Comments [...] Most Recently Relevant to Health Maintenance Insurance [facility] Care Teams Singe Machine Operator Relationship Specialty Start Date End Date Carlotta Wilkinson MD [address] [place] [address] PCP - General Internal Medicine 05/19/15
[2024-07-30 12:30] LABS: Influenza A PCR NEGATIVE (Negative); Influenza B PCR NEGATIVE (Negative); Resp Syncy Virus RNA Qual PCR NEGATIVE (Negative); SARS COV2 PCR INHOUSE NEGATIVE (Negative)
== END 2024-07-29 15:25 | disposition home or self-care (01) ==
LOC: HO.LAB 15:24
PROVIDERS: PCP Internal Medicine; Visit Provider Physician Assistant
DX: J06.9 Acute upper respiratory infection, unspecified (principal)
CPT/HCPCS: 0241U

== ENCOUNTER 2024-07-29 15:24 | Outpatient (AMB) | payer OTHER, SELFPAY ==
--- NOTE | 2024-07-29 16:00 | AM.OFFWIN_ITS ---
Intake Vital Signs 07/29/24 16:02 Weight 251 lb BP 120/78 Blood Pressure Location Rt brachial Position Sitting Pulse 103 H Pulse Source Pulse Oximeter Temp 98.4 F Temp Source Oral Pulse Oximetry (%) 97 Oxygen Delivery Method Room Air Intake Visit Reasons: EP severe cough Intake Note: Patient here for severe cough, nasal congestion and headaches that has been present since friday and is now hurting her chest and upper back. Patient Tobacco Use Status: Never used Tobacco Allergies No Known Allergies Allergy (Verified 07/29/24 16:06) Do you need a note to return to daycare/school/sports/work: No HPI HPI Comments History of Present Illness Details History - The patient is a 39-year-old female pr esenting with a persistent cough that began six days prior. - Additional symptoms include nasal nydia estion and a headache, potentially due to pressure from consistent coughing. - OTC medications such as DayQuil and Ny Quil have not provided relief, nor have non-prescription cough drops. - She reports neck pain that might stem from the frequent bracing of her body during coughing. - She does not have a history of asthma or recent episodes of fever, and she denies sinus or ear pain. - She notes occasional gasping linked to the coughing episodes, though no shortness of breath is consistently present. - A family member had a related but now resolved illness with no antibiotics. Physical Exam General: Cooperative, healthy appearing, comfortable and no acute distress Orientation/consciousness: Patient oriented x3 Limitations: No limitations Head: Normal to inspection, reports headache Ears: Hearing grossly normal bilaterally, external ears normal and TM's normal bilaterally Nose: Normal external nose present, Normal nares present and Nasal congestion present Face and sinus: Normal facial exam and Yes sinuses nontender Mouth: Normal oral and palatal mucosa present and moist mucous membranes Throat: Yes tonsils normal, Yes uvula midline. Posterior oropharynx erythema Eyes: Appearance normal, both eyes and all related structures Neck: Normal visual inspection, reports upper neck pain Respiratory: Clear to auscultation bilaterally. Normal respiratory effort, able to speak in complete sentences, Actively coughing, no respiratory distress, not tachypneic, no tripod positioning and no use of accessory muscles Cardiovascular: Regular rate and rhythm. Normal S1 and S2 Skin: No rashes or lesions noted Neuro: Patient oriented x3 Extremities: Normal to inspection and Yes no clubbing, cyanosis or edema PFSH Medical History Insomnia Anxiety Depression Morbid obesity Surgical History History of delivery Hx of breast reduction, elective Social History Alcohol intake: current Alcohol intake frequency: a few times a week Alcohol type: wine Patient Tobacco Use Status: Never used Tobacco Review of Systems Const All systems reviewed & are unremarkable except as noted in HPI and below Physical Exam Vital Signs: Last Vital Signs Temp 98.4 F 07/29/24 16:02 Pulse 103 H 07/29/24 16:02 BP 120/78 07/29/24 16:02 Pulse Ox 97 07/29/24 16:02 Oxygen Delivery Method Room Air 07/29/24 16:02 Assessment & Plan Assessment & Plan (1) URI, acute: Code(s): J06.9 - Acute upper respiratory infection, unspecified Plan: Plan I recommend treating the patient's persistent cough and nasal congestion with medications such as Tessalon Perles for nighttime symptom management and Savannah D to alleviate congestion. Despite the lack of classic wheezing, an inhaler is prescribed to manage potential bronchospasm causing the cough, alongside guidance on its use during episodes. The use of ibuprofen to address inflammation and pain from coughing is encouraged, and simple remedies like hot tea with honey are advised for throat relief. Should bacterial infection be identified through testing, antibiotics may be introduced. Samples for viral pathogens including Influenza, COVID-19, and RSV have been tested, with results expected tomorrow, will send Zpak if all are negative to cover Atypical pneumonia. Additionally, Benadryl can be used to improve sleep quality by addressing related symptoms. Patient was informed and verbally consented to the use of an ambient scribe for clinic note documentation during this visit Orders: Orders SARS-CoV2/FLU/RSV Today J06.9 - Acute upper respiratory infection, unspecified Medications: New benzonatate 200 mg PO .QHS PRN 10 caps 0RF cough albuterol sulfate 90 mcg/actuation 2 puffs inhalation Q6H PRN 8.5 grams 0RF shortness of breath or wheezing or cough Coding Level of Care Code New Pt Level 3 (25876) Diagnoses URI, acute J06.9
[2024-07-29 16:02] VITALS: BP 120/78; PULSE 103; TEMP 36.9; O2SAT 97
--- OUTSIDE RECORDS SUMMARY | 2024-07-29 16:27 | XMS_ITS | Clinical Summary ---
Author Organization 175 [facility] Address [address] [place] [address] Phone Care Team Providers Care Contract Associate Manager Name Role Phone Carlotta Wilkinson MD Primary Care Provider [phone] Allergies No known active allergies Medications hydrOXYzine pamoate (VISTARIL) 25 mg capsule Take 1 capsule (25 mg total) by mouth. 4 Active citalopram (CeleXA) 20 mg tablet Take 1 tablet (20 mg total) by mouth 1 (one) time each day. 4 Active traZODone (DESYREL) 50 mg tablet Take 1 tablet (50 mg total) by mouth at bedtime as needed for sleep. 90 tablet 4 Active etonogestreL-et hinyl estradioL (NUVARING) 0.12-0.015 mg/24 hr vaginal ring Insert vaginally and leave in place for 3 consecutive weeks, then remove for 1 week. 1 each 4 5 Active Active Problems Problem Noted Date Diagnosed Date Class 3 severe obesity with body mass index (BMI) of 40.0 to 44.9 in adult 03/26/2024 Prediabetes 03/27/2020 Major depressive disorder with single episode Anxiety and depression 12/05/2016 Leiomyoma of uterus 09/20/2009 Chronic back pain 06/23/2008 Immunizations Name Administration Dates Next Due HPV, Quadrivalent 11/01/2008,06/30/2008,04/28/20 08 Hepatitis B (Sxihgit-V-Rkxcy , Recombivax HB-Adult) 19yo and older 06/14/2020,01/07/2020,12/08/2019 Influenza Quadravalent, MDCK , 0.5ml, preservative free (Flucelvax) 6mo and older 02/11/2024 Influenza trivalent, 0.5mL, preservative free (Fluarix; FluLaval; Fluzone) ages 6mo and older (Afluria) 3 years and older 05/17/2022,03/22/2020,03/29/2017,2015,03/09/2015,03/22/2014,02/25/2013,0 02/25/2012,03/22/2010,02/23/2009, 008 Influenza, Unspecified 03/21/2020 MMR, measles mumps and rubel la Live (Priorix; M-M-R II) 12mo and older 11/09/2013 Measles 01/01/2010 Moderna (age 6mo & older) Bi valent, COVID-19, 0.5 mL or 0.25 mL dosage 05/17/2022 Tdap Tetanus diptheria acell ular pertussis (Boostrix; Adacel) 7yo and older 02/11/2024,09/22/2013 Surgical History Surgery Date Site/Laterality Comments BREAST REDUCTION 2009 PROCEDURE: [place] BREAST REDUCTION Medical History Medical History Date Comments Leiomyoma of uterus, unspecified 09/20/2009 DX:Leiomyoma of uterus, unspecified Obesity (BMI 30-39.9) 03/18/2008 DX:Obesity (BMI 30-39.9) Family History Medical History Relation Name Comments Other: unknown cause Father Diabetes Maternal Grandmother catarac t, glaucoma Diabetes Mother HTN, cholestero l Breast cancer Neg Hx Colon cancer Neg Hx Ovarian cancer Neg Hx Relation Name Status Comments Father foul play Maternal Grandmother Mother Alive Social History Tobacco Use Types Packs/Day Years Used Date Smoking Tobacco: Never Smokeless Tobacco: Never Tobacco Cessation:Counseling Given: Not Answered Alcohol Use Standard Drinks/Week Comments Yes 0 (1 standard drink = 0.6 oz pur e alcohol) Comments Unknown Sex and Gender Information Value Date Recorded Sex Assigned at Not on file Legal Sex Female 12:17 PM EST Gender Identity Not on file Sexual Orientation Not on file Obstetrics History Last Filed Vital Signs Vital Sign Reading Time Taken Comments Blood Pressure 130/60 05/21/2024 8:06 AM EST Pulse 75 05/21/2024 8:06 AM EST Temperature 35.8 ??C (96.5 ??F) 05/21/2024 8:06 AM ES T Respiratory Rate 16 05/21/2024 8:06 AM EST Oxygen Saturation 99% 05/21/2024 8:06 AM EST Inhaled Oxygen Concentration - - Weight 110 kg (242 lb) 05/21/2024 8:06 AM EST Height 168.9 cm (5' 6.5 ) 05/21/2024 8:06 AM EST Body Mass Index 38.47 05/21/2024 8:06 AM EST Plan of Treatment Upcoming Encounters Date Type Department Care Team (Late st Contact Info) Description 09/06/2024 8:45 AM EDT Office Visit Adult Medicine [address] [phone] Carlotta Wilkinson MD [address] [place] [address] 10/27/2024 1:30 PM EDT Office Visit Obstetrics and Gynecology - [address] [phone] Yeimy Benson, [address] 12/22/2024 9:00 AM EDT Office Visit Adult [address] [phone] Carlotta Wilkinson MD [address] [place] [address] Health Maintenance Due Date Last Done Comments Cholesterol Screening (Lipid Panel) 05/18/2022 Depression Screening 05/18/2022 HIV Screening 05/18/2022 Hepatitis C Screening 05/18/2022 Social Influencers of Health Screening 05/18/2022 COVID-19 Vaccine ( season) 2024 05/17/2022, 06/14/2021, 10/09/2020, Additional history exists Cervical Cancer Screening: HPV 04/22/2026 04/22/2021 DTaP,Tdap,and Td Vaccines (3 - Td or Tdap) 02/10/2034 02/11/2024, 09/22/2013 HPV Vaccines Completed 11/01/2008, 06/10, 04/28/2008 MMR Vaccines Aged Out 11/09/2013 No longer eligi ble based on patient's age to complete this topic Hepatitis B Vaccines Completed 06/14/2020, 01/07/2020, 12/08/2019 Influenza Vaccine Completed 02/11/2024, , 03/22/2020, Additional history exists HIB Vaccines Aged Out No longer eligi ble based on patient's age to complete this topic Hepatitis A Vaccines Aged Out No long er eligible based on patient's age to complete this topic IPV Vaccines Aged Out No longer eligi ble based on patient's age to complete this topic Meningococcal ACWY Vaccine Aged Out N o longer eligible based on patient's age to complete this topic Meningococcal B Vacine Aged Out No lo nger eligible based on patient's age to complete this topic Pneumococcal Vaccine: Pediatrics (0 to 5 Years) and At-Risk Patients (6 to 64 Years) Aged Out No longer eligible based on patient's age to complete this topic RSV Immunization Patients Under 20 months Aged Out No longer eligible based on patient's age to complete this topic Varicella Vaccines Aged Out No longer eligible based on patient's age to complete this topic Procedures Procedure Name Priority Date/Time Associated Diagnosis Comments HPV Routine 04/22/2021 from Last 3 Months or Most Recently Relevant to Health Maintenance Results * Cervical Cancer Screening: HPV (04/22/2021) Cervical Cancer Screening: HPV negative, abstracted Historical Provider MD HEALTH MAINTENANCE Final Result from Last 3 Months or Most Recently Relevant to Health Maintenance Insurance [employer] Care Teams Contract Associate Manager Relationship Specialty Start Date End Date Carlotta Wilkinson MD [address] [place] [address] PCP - General Internal Medicine 05/19/15
== END 2024-07-29 16:23 | disposition home or self-care (01) ==
PROVIDERS: PCP Internal Medicine; Visit Provider Physician Assistant
DX: J06.9 Acute upper respiratory infection, unspecified (principal)

== ENCOUNTER → 2024-09-20 14:07 | Outpatient (REF) | payer OTHER, SELFPAY ==
--- NOTE | 2024-09-20 14:10 | ECG_ITS ---
Test Reason : morb.obes Blood Pressure : */* mmHG Vent. Rate : 70 BPM Atrial Rate : 70 BPM P-R Int : 152 ms QRS Dur : 78 ms QT Int : 392 ms P-R-T Axes : 49 -1 17 degrees QTcB Int : 423 ms Normal sinus rhythm with sinus arrhythmia Cannot rule out Anterior infarct (cited on or before 16-Jul-2024) Abnormal ECG When compared with ECG of 16-Jul-2024 10:59, No significant change was found Referred By: Babak Jimenez Electronically Signed By: LEEANN ROBB MD
--- OUTSIDE RECORDS SUMMARY | 2024-09-20 16:29 | XMS_ITS | Clinical Summary ---
Author Organization 175 [facility] Address [address] [place] [address] Phone Care Team Providers Care Meter Supervisor Name Role Phone Carlotta Wilkinson MD Primary Care Provider [phone] Allergies No known active allergies Medications etonogestreL-e [...] obesity (BMI 35.0-39. 9) with comorbidity (CMS/[facility] V24, [facility] V28) 03/26/2024 Prediabetes 03/27/2020 Major depressive disorder with single episode Anxiety and depression 12/05/2016 Leiomyoma of uterus 09/20/2009 Chronic back pain 06/23/2008 Encounters Date Type Department Care Team Description 09/09/2024 3:15 PM EDT Office Visit Adult Medicine [address] [phone] Edyta Marte PA Subacute sinusitis, unspecified location (Primary Dx); Pharyngitis, unspecified etiology 09/07/2024 Telephone Adult Medicine [address] [phone] Roxi Chan RN 09/06/2024 8:45 AM EDT Office Visit Adult [address] [phone] Carlotta Wilkinson MD Prediabetes (Primary Dx); Anxiety and depression 07/30/2024 Telephone Adult Medicine [address] [phone] Roxi Chan, SABI from Last 3 Months Immunizations Name Administration Dates Next Due HPV, Quadrivalent 11/01/2008,06/30/2008,04/28/20 08 Hepatitis B (Usfcabl-M-Azttz , Recombivax HB-Adult) 19yo and older 06/14/2020,01/07/2020,12/08/2019 [...] EDT Office Visit Obstetrics and Gynecology - [address] [phone] Yeimy Benson CNM [address] [place] [address] 12/22/2024 9:00 AM EDT Office Visit Adult Medicine [facility] [address] [place] [address] Carlotta Wilkinson MD [address] [place] [address] Health Maintenance Due Date Last Done Comments [...] Hemoglobin A1c (09/06/2024 9:11 AM EDT) Pathologist [facility] Hemoglobin A1C 6.0 <6.5 % LAB CHEMISTRY METHOD 09/06/2024 2:05 PM EDT [facility] Mean Bld Glu Estim. 126 mg/dL LAB CHEMISTRY METHOD 09/06/2024 2:05 PM EDT [facility] Blood Venous blood specimen / Unknown Venipuncture / Unknown 09/06/2024 9:11 AM EDT 09/06/2024 9:11 AM EDT Carlotta Wilkinson MD LAB BLOOD ORDERABLES Final Resul t [facility] [address] [place] [address], * Cervical Cancer Screening: HPV (04/22/2021) Pathologist [facility] Cervical Cancer Screening: HPV negative, abstracted Nan Provider HEALTH MAINTENANCE Final Result from Last 3 Months or Most Recently Relevant to Health Maintenance Insurance [employer] [facility] Care Teams Meter Supervisor Relationship Specialty Start Date End Date Carlotta Wilkinson MD [address] [place] [address] PCP - General Internal Medicine 05/19/15
== END ==
LOC: HO.CARD 14:07
PROVIDERS: PCP Internal Medicine; Visit Provider Surgery
DX: E66.01 Morbid (severe) obesity due to excess calories (principal)
CPT/HCPCS: 93005

== ENCOUNTER → 2024-09-20 14:10 | Outpatient (BNV) | payer OTHER, SELFPAY | PROVIDERS: PCP Internal Medicine; Visit Provider Internal Medicine Cardiovascular Disease | DX: I49.9 Cardiac arrhythmia, unspecified (principal) | CPT/HCPCS: 93010 ==

== ENCOUNTER 2024-10-01 08:00 | Day surgery (SDC) | payer OTHER, SELFPAY ==
--- OUTSIDE RECORDS SUMMARY | 2024-09-20 07:13 | XMS_ITS | Clinical Summary ---
Author Organization 175 [facility] Address [address] [place] [address] Phone Care Team Providers Care Slasher Sawyer Name Role Phone Carlotta Wilkinson MD Primary Care Provider [phone] Allergies No known active allergies Medications etonogestreL-e thinyl estradioL (NUVARING) 0.12-0.015 mg/24 hr vaginal ring Insert vaginally and leave in place for 3 consecutive weeks, then remove for 1 week. 1 each 4 5 Active hydrOXYzine pamoate (VISTARIL) 25 mg capsule Take 1 capsule (25 mg total) by mouth 4 (four) times a day if needed for anxiety. 30 capsule 5 Active traZODone (DESYREL) 50 mg tablet Take 1 tablet (50 mg total) by mouth at bedtime as needed for sleep. 30 tablet 5 Active citalopram (CeleXA) 20 mg tablet Take 1 tablet (20 mg total) by mouth 1 (one) time each day. 90 each 1 5 Active cetirizine (ZyrTEC) 10 mg tablet Take 1 tablet (10 mg total) by mouth 1 (one) time each day. 90 each 5 Active hydrOXYzine pamoate (VISTARIL) 25 mg capsule Take 1 capsule (25 mg total) by mouth. 4 025 Discontinu ed(Reorder ) citalopram (CeleXA) 20 mg tablet Take 1 tablet (20 mg total) by mouth 1 (one) time each day. 4 025 Discontinu ed(Reorder ) traZODone (DESYREL) 50 mg tablet Take 1 tablet (50 mg total) by mouth at bedtime as needed for sleep. 90 tablet 4 025 Discontinu ed(Reorder ) etonogestreL-e thinyl estradioL (NUVARING) 0.12-0.015 mg/24 hr vaginal ring Insert vaginally and leave in place for 3 consecutive weeks, then remove for 1 week. 1 each 4 5 025 Discontinu ed(Reorder ) amoxicillin-cl avulanate (AUGMENTIN) 875-125 mg per tablet Take 1 tablet by mouth 2 (two) times a day for 7 days. 14 each 5 025 Active Problems Problem Noted Date Diagnosed Date Severe obesity (BMI 35.0-39. 9) with comorbidity (CMS/[facility] V24, [facility] V28) 03/26/2024 Prediabetes 03/27/2020 Major depressive disorder with single episode Anxiety and depression 12/05/2016 Leiomyoma of uterus 09/20/2009 Chronic back pain 06/23/2008 Encounters Date Type Department Care Team Description 09/09/2024 3:15 PM EDT Office Visit Adult Medicine [address] [phone] Edyta Marte PA Subacute sinusitis, unspecified location (Primary Dx); Pharyngitis, unspecified etiology 09/07/2024 Telephone Adult Medicine [address] [phone] Roxi Chan RN 09/06/2024 8:45 AM EDT Office Visit Adult [address] [phone] Carlotta Wilkinson MD Prediabetes (Primary Dx); Anxiety and depression 07/30/2024 Telephone Adult Medicine [address] [phone] Roxi Chan, SABI from Last 3 Months Immunizations Name Administration Dates Next Due HPV, Quadrivalent 11/01/2008,06/30/2008,04/28/20 08 Hepatitis B (Nlqikhr-O-Lvizm , Recombivax HB-Adult) 19yo and older 06/14/2020,01/07/2020,12/08/2019 [...] Surgery Date Site/Laterality Comments BREAST REDUCTION 2009 Medical History Medical History Date Comments Leiomyoma of uterus, unspecified 09/20/2009 Prediabetes 03/27/2020 Major depressive disorder with single episode Chronic back pain 06/23/2008 Anxiety and depression 12/05/2016 Family History Medical History Relation Name Comments [...] drink = 0.6 oz pur e alcohol) Housing Instability Answer Date Recorde d Are you worried that in the next 2 months you may not have stable housing? No 09/05/2024 Food Access & Nutrition Answer Date Rec orded Do you have access to a vari ety of food including fruits and vegetables? Yes 09/05/2024 Financial Risk Answer Date Recorded How hard is it for you to pa y for the very basics like food, housing, medical care, and air conditioning / heating? Somewhat hard 09/05/2024 Food Risk Answer Date Recorded Within the past 12 months we worried whether our food would run out before we got money to buy more. Never true 09/05/2024 Within the past 12 months th e food we bought just didn't last and we didn't have money to get more. Never true 09/05/2024 Living Situation Answer Date Recorded What is your living situation? 0 09/05/2024 Comments Unknown Sex and Gender Information Value Date Recorded Sex Assigned at Not on file Legal Sex Female 12:17 PM EST Gender Identity Not on file Sexual Orientation Not on file Obstetrics History Last Filed Vital Signs Vital Sign Reading Time Taken Comments Blood Pressure 132/90 09/09/2024 3:21 PM EDT c Pulse 82 09/09/2024 3:21 PM EDT Temperature 36.1 ??C (96.9 ??F) 09/09/2024 3:21 PM ED T Respiratory Rate 18 09/09/2024 3:21 PM EDT Oxygen Saturation 98% 09/09/2024 3:21 PM EDT Inhaled Oxygen Concentration - - Weight 108 kg (238 lb) 09/09/2024 3:21 PM EDT Height 167.6 cm (5' 6 ) 09/09/2024 3:21 PM EDT Body Mass Index 38.41 09/09/2024 3:21 PM EDT Plan of Treatment Upcoming Encounters Date Type Department Care Team (Late st Contact Info) Description 10/27/2024 1:30 PM EDT Office Visit Obstetrics and Gynecology - [address] [phone] Yeimy Benson CNM [address] [place] [address] 12/22/2024 9:00 AM EDT Office Visit Adult Medicine [facility] [address] [place] [phone] Carlotta Wilkinson MD [address] [place] [address] Health Maintenance Due Date Last Done Comments Cholesterol Screening (Lipid Panel) 05/18/2022 HIV Screening 05/18/2022 Hepatitis C Screening 05/18/2022 COVID-19 Vaccine ( season) 2024 05/17/2022, 06/14/2021, 10/09/2020, Additional history exists Depression Screening 09/05/2025 09/05/2024 Social Influencers of Health Screening 09/05/2025 09/05/2024 Cervical Cancer Screening: HPV 04/22/2026 04/22/2021 DTaP,Tdap,and [...] age to complete this topic Meningococcal B Vaccine Aged Out No l onger eligible based on patient's age to complete [...] Procedure Name Priority Date/Time Associated Diagnosis Comments HEMOGLOBIN A1C Routine 09/06/2024 9:11 AM EDT Prediabetes HPV Routine 04/22/2021 from Last 3 Months or Most Recently Relevant to Health Maintenance Results * Hemoglobin A1c (09/06/2024 9:11 AM EDT) Pathologist [facility] Hemoglobin A1C 6.0 <6.5 % LAB CHEMISTRY METHOD 09/06/2024 2:05 PM EDT [facility] Mean Bld Glu Estim. 126 mg/dL LAB CHEMISTRY METHOD 09/06/2024 2:05 PM EDT [facility] Blood Venous blood specimen / Unknown Venipuncture / Unknown 09/06/2024 9:11 AM EDT 09/06/2024 9:11 AM EDT Carlotta Wilkinson MD LAB BLOOD ORDERABLES Final Resul t [facility] [address] [place] [address], * Cervical Cancer Screening: HPV (04/22/2021) Pathologist [facility] Cervical Cancer Screening: HPV negative, abstracted Nan Provider HEALTH MAINTENANCE Final Result from Last 3 Months or Most Recently Relevant to Health Maintenance Insurance [employer] [facility] Care Teams Slasher Sawyer Relationship Specialty Start Date End Date Carlotta Wilkinson MD [address] [place] [address] PCP - General Internal Medicine 05/19/15
--- NOTE | 2024-09-30 09:03 | HO.ANESPROP2 ---
Documented by User: Mary Medina NP 09/30/24 09:06 HPI - Anesthesia Eval Consult details Narrative: 39yo F for Upper Endoscopy BMI 40 PMFSH Active Problems Active Problems: All Active Problems URI, acute (Acute) Abnormal EKG (Acute) Vitamin B1 deficiency (Acute) Vitamin B12 deficiency (Acute) Vitamin D deficiency (Acute) Insomnia (Acute) Anxiety (Acute) Depression (Acute) Morbid obesity (Acute) Past Medical History Medical History Insomnia Anxiety Depression Morbid obesity Surgical History Surgical History History of delivery Hx of breast reduction, elective Social History Social History Alcohol intake: current Alcohol intake frequency: a few times a week Alcohol type: wine Patient Tobacco Use Status: Never used Tobacco Advance Directives Information Provided: Yes (as above noted) Advance Directives on File: No Meds Allergies Allergy/AdvReac Type Severity Reaction Status Date / Time No Known Allergies Allergy Verified 07/29/24 16:06 Home Medications ?Medication ?Instructions ?Recorded ?Confirmed ?Last Taken ?Type citalopram 20 mg tablet 20 mg PO DAILY 06/13/23 10/01/24 09/29/24 History hydroxyzine HCl 50 mg tablet 50 mg PO TID 06/13/23 10/01/24 09/29/24 History trazodone 50 mg tablet 50 mg PO BEDTIME 06/13/23 10/01/24 09/29/24 History Exam Height,Weight and Vital Signs: Height 5 ft 6.5 in Assessment and Plan Assessment Anesthesia Assessment: Chart Reviewed Documented by User: Natacha Khan MD 10/01/24 09:32 PMFSH Past Medical History Medical History Insomnia Anxiety Depression Morbid obesity Family History Family history of problems with anesthesia: No Surgical History Surgical History History of delivery Hx of breast reduction, elective History of Problems with Anesthesia: No Social History Social History Alcohol intake: current Alcohol intake frequency: a few times a week Alcohol type: wine Patient Tobacco Use Status: Never used Tobacco Advance Directives Information Provided: Yes (as above noted) Advance Directives on File: No Meds Allergies Allergy/AdvReac Type Severity Reaction Status Date / Time No Known Allergies Allergy Verified 07/29/24 16:06 Home Medications ?Medication ?Instructions ?Recorded ?Confirmed ?Last Taken ?Type citalopram 20 mg tablet 20 mg PO DAILY 06/13/23 10/01/24 09/29/24 History hydroxyzine HCl 50 mg tablet 50 mg PO TID 06/13/23 10/01/24 09/29/24 History trazodone 50 mg tablet 50 mg PO BEDTIME 06/13/23 10/01/24 09/29/24 History Exam Airway Mallampati Class: II TM Dist: >3cm Neck ROM: Full Assessment and Plan Assessment Anesthesia Assessment: Anesthesia Plan Discussed Final Anesthetic Review Family History of Problems with Anesthesia: No History of Problems with Anesthesia: No NPO: Yes ASA Class: III Final Preanesthetic Review: No Changes in Pt Med Stat, Meds/Allgs Chart Reviewed, Consent Obtained/Reviewed and Anes Risks/Benef Reviewed Patient Risk: Intermediate Procedure Risk: Low Anesthetic Plan Anesthetic Plan: TIVA Disposition: Standard PACU
[2024-10-01 08:13] VITALS: BMI 37.3
[2024-10-01 08:18] VITALS: BP 133/71; PULSE 82; RESP 20; TEMP 36.5; O2SAT 100
[2024-10-01 08:31] LABS: UPreg QC Valid YES; Urine Pregnancy NEGATIVE (NEGATIVE)
[2024-10-01] MEDS: Lactated Ringers 1,000 ML 100 ML IVCONT (08:49)
--- NOTE | 2024-10-01 10:33 | MHC.SHP ---
Pre-Procedural Eval Section A - 24 Hr Update-Section A only Date of Service: 10/01/24 The patient is an INPATIENT: No The patient has been examined within 24 hours of the surgical procedure. The History & Physical has been completed within 30 days and I have reviewed it.: Yes Section B - Complete if H&P > 30 days Chief Complaint: Morbid (severe) obesity due to excess calories Relevant Family History (Specify if Yes): No Relevant Social History: None Present Medications: None Medical History: No relevant PMH History of Previous Operations: No relevant previous surgery Allergies: Allergies Allergy/AdvReac Type Severity Reaction Status Date / Time No Known Allergies Allergy Verified 07/29/24 16:06 Review of Systems Sugical H&P ROS: Negative: Constitution, Cardiovascular, Respiratory, Neurological, Psychiatric, Hem-Onc, Allergic/Immunologic, Gastrointestinal, Genitourinary, Musculoskeletal, Integumentary, Endocrine and Eyes/Ears/Nose/Throat Exam Surgical H&P Exam: Normal: HEENT, Normal: Heart, Normal: Lungs, Normal: Extremities, Normal: Abdomen, Normal: Skin and Normal: Neurological Plan Diagnosis/Plan: Unchanged (EGD to assess the stomach's anatomy. Risks of bleeding and perforation were discussed with the patient and she is in agreement with the plan.) I have reviewed the history and physical and performed a pertinent physical examination on my patient. No changes have occurred unless specified. Time Spent With Patient Time: Total time managing care of this patient today ____ minutes.
--- NOTE | 2024-10-01 10:37 | P.BOP_ITS ---
Brief Operative Note Date of Service: 10/01/24 Pre-op diagnosis: Obesity Post-op diagnosis: same Procedure: PROCEDURE DATE: 10/01/2024 PREOPERATIVE DIAGNOSIS: GERD POSTOPERATIVE DIAGNOSIS: ?Same as above. Small diaphragmatic hernia and mild esophagitis PROCEDURE: Aqlgkmrh-oxbimc-ntkatdntipng with biopsies Surgeon: ?Ander Jimenez M.D.. Ph.D. Second Vp Hr Assessment: None ? Anesthesia: IV sedation Estimated blood loss: ?Minimal FINDINGS AND PROCEDURE: ? OPERATIVE INDICATIONS: ?The patient is a 39 year old female known to me who is interested in bariatric surgery. Based on this information I recommended an upper endoscopy to evaluate the stomach's anatomy. Risks and complications of the surgery were discussed with the patient in advance particularly the possibility of perforation or bleeding that may require surgical intervention. The patient understood the risks and was in agreement with the plan. ? PROCEDURE: After informed consent was obtained by the patient, the patient was ?transferred to the Operating Room and was placed in the supine position.? After successful induction of IV sedation, a mouth block was inserted and the patient was placed in the left lateral decubitus position. An upper endoscopy was performed next, the oropharynx and esophagus appeared within the normal limits. There was a small 1-2cm hiatal hernia. The z-line was irregular with tongeus of gastric mucosa protruding into the esophagus in 25% circumference. Two biopsies were obtained from the distal esophagus 2-3 cm proximal to the GE junction and two additional biopsies from the GE junction. The stomach was entered and it appeared to be of normal size. There was no gastritis. There was no stricture or ulcer. A biopsy was obtained from the gastric fundus and the antrum. No significant bleeding was noted from any of the biopsy sites. Retroflexion of the scope confirmed the presence of a small diaphragmatic hernia. The scope was then advanced into the duodenum which appeared to be normal as well. At that point the duodenum ?and the stomach were decompressed and the scope was withdrawn from the patient's mouth. The patient extubated and was transferred in stable condition to the Recovery Room for further care. I was present and performed all steps of the procedure. There were no residents to assist with this case. Ander Jimenez M.D., Ph.D. Surgeon: Babak Jimenez MD Anesthesia: MAC Was an Second Vp Hr Assessment used for this Procedure?: No Estimated blood loss (mL): 0 IV fluids (mL): 400 Urine output (mL): 0 Pathology: other (1) antrum x1, 2) fundus x1, 3) GE junction x2, 4) distal esophagus x2) Condition: stable Disposition: PACU
[2024-10-01 11:03] VITALS: BP 112/65; PULSE 80; RESP 12; TEMP 36.2; O2SAT 97
[2024-10-01 11:08] VITALS: BP 120/55; PULSE 74; RESP 16; O2SAT 97
[2024-10-01 11:28] VITALS: BP 136/55; PULSE 70; RESP 20; TEMP 36.9; O2SAT 100
== END 2024-10-01 11:48 | disposition home or self-care (01) ==
PROVIDERS: Nurse Practitioner; PCP Internal Medicine; Visit Provider Surgery
PROC: 0DJ08ZZ Inspection of Upper Intestinal Tract, Via Natural or Artificial Opening Endoscopic (ICD-10-PCS; CPT 43235; principal; 2024-10-01 10:20)
DX: K21.9 Gastro-esophageal reflux disease without esophagitis (principal); K20.80 Other esophagitis without bleeding; E66.01 Morbid (severe) obesity due to excess calories; Z68.41 Body mass index [BMI] 40.0-44.9, adult; K44.9 Diaphragmatic hernia without obstruction or gangrene; G47.00 Insomnia, unspecified; F32.A Depression, unspecified; F41.9 Anxiety disorder, unspecified; Z79.899 Other long term (current) drug therapy; Z98.890 Other specified postprocedural states
CPT/HCPCS: 43239; 81025; 88305; 88313; 88342; J2003; J2704

== ENCOUNTER → 2024-10-01 08:00 | Outpatient (BNV) | payer OTHER, SELFPAY | PROVIDERS: PCP Internal Medicine; Visit Provider Surgery | DX: K44.9 Diaphragmatic hernia without obstruction or gangrene (principal) | CPT/HCPCS: 43239 ==

== ENCOUNTER 2024-10-22 08:16 | Outpatient (AMB) | payer OTHER, SELFPAY ==
--- NOTE | 2024-10-21 16:11 | MHC.OFFVISWM ---
VS Expanded 10/21/24 16:38 Height 5 ft 6.5 in Weight 234 lb 6 oz BMI 37.3 Body Fat % 48.2 Body Fat Mass 113 Fat Free Mass 121.6 Visceral Fat Rating 19 Body Water % 35.5 Body Water Mass 83.2 Basal Metabolic Rate/Score 1,557 Intake Visit Reasons: TV Pre Op LSG 11/09/24 Allergies No Known Allergies Allergy (Verified 10/21/24 16:46) Medication List - Last Reconciled 10/21/24 by Babak Jimenez MD citalopram 20 mg PO DAILY hydroxyzine HCl 50 mg PO TID PRN ondansetron 4 mg PO Q6H PRN pantoprazole 40 mg PO DAILY polyethylene glycol 3350 17 grams PO DAILY sucralfate 10 mL PO BID trazodone 50 mg PO BEDTIME HPI HPI TV Pre Op LSG 11/09/24: Details: Start time: 12.30pm, End time: 1pm I spent 25 minutes speaking with the patient on the phone plus an additional 5 minutes reviewing and updating records for a total of 30 minutes HPI Comments Details: Overall weight loss: 17.3lbs, or 6.8% TBWL Is doing 4 Fairlife shake (4oz of Fairlife mixed with 4oz almond milk) and one whole bottle Fairlife shake Exercise: burning 300 calories x2-3/week [facility] Medical History (Updated 10/21/24 @ 16:50 by Babak Jimenez MD) Obesity Pre-diabetes Insomnia Anxiety Depression Morbid obesity Surgical History (Updated 10/15/24 @ 11:18 by Tanja Yanes RN) History of esophagogastroduodenoscopy (EGD) History of delivery Hx of breast reduction, elective Social History Are you a primary career services manager to a significant other at home: No Do you presently have visiting nurse or other home services: No Alcohol intake: current Alcohol intake frequency: a few times a month Alcohol type: wine Patient Tobacco Use Status: Never used Tobacco Physical Exam Vital Signs: BMI result Body Mass Index 37.3 Telehealth Telehealth Telehealth Platform: Telephone Location of provider rendering services: practice address Location of patient: address on file Patient Identification confirmed using: Name, : Yes Telehealth method: voice only Patient verbally consented to treatment: Yes Patient verbally consented to billing insurance company: Yes Patient informed of any privacy concerns related to visit: Yes Minutes spent on Phone/Video with Pt.: 30 Assessment & Plan Assessment & Plan (1) Obesity: Code(s): E66.9 - Obesity, unspecified Category: Medical Qualifiers: Body mass index: BMI 37.0-37.9 Obesity classification: adult class 2 (BMI 35 - 39.9) Obesity type: due to excess calories Serious obesity comorbidity presence: without serious comorbidity Qualified Code(s): E66.812 - Obesity, class 2; E66.09 - Other obesity due to excess calories; Z68.37 - Body mass index [BMI] 37.0-37.9, adult Plan: 1. Plan for lap sleeve gastrectomy including upper GI endoscopy. All tests has been completed and reviewed and the patient is cleared for the surgery. If diaphragmatic or ventral hernias are present at time of surgery, these will be repaired laparoscopically as well. The surgery does not replace the need to change your lifestlyle which is the cause of the obesity problem. The surgery provides the motivation to try again to change your lifestyle, it reduces the appetite and make the transition to a better lifestyle easier and doubles the amount of weight you would lose compared to doing the lifestyle change without the surgery. You will need to be on a liquid diet with protein shakes for 2 weeks before surgery to maximize weight loss and boost your nutritional status to recover better from surgery and also for the first two weeks after surgery to let the stomach heal before we introduce other foods. After the first 2 weeks we will introduce protein bars and soft foods like scrambled eggs, cottage cheese and yogurt and after the 6th week will introduce meat, fish and cooked vegetables in small amounts. Over time you should be able to eat everything in small amounts. Side effects like nausea, vomiting, heartburn or abdominal pain are not common in the practice unless you are not following in the practice. This operation requires lifetime commitment to following in our practice and communication with me. You will much less weight and experience side effects if you don?t communicate or not following in the practice. Complications are rare and in our practice is about 1/10 of the national average. However, you can develop bleeding that may require transfusion (hasn?t happened for year in the practice), you may from complications (we did not have any deaths in the practice) and infections. Infections are usually a result of breakdown in communication or not understanding or following directions correctly. They are difficult to treat, they can happen during the first 6 weeks, they may require to be in the hospital for weeks or even months, not being able to eat by mouth and you may have drains and surgeries to try and correct the issue. Other risks and complications include possible conversion to an open procedure, leaks, small bowel obstruction, blood clots, cardiac, or pulmonary complications, as buttermaker helper complications such as ulcers, insufficient weight loss and vitamin deficiencies. So far she has proven to be an excellent communicator and very compliant with all our directions accomplishing a great weight loss. I believe that she is an excellent candidate and she is ready. 2. Preop prescriptions were provided and explained the purpose of each one. Need to be purchased preop. Start Pantoprazole now as you get it from the pharmacy, 1 pill per day. Sucralfate and Zofran are for after surgery as needed. 3. Bowel prep: please do 7 packets of Miralax mixing each one with a an 8oz glass of water, crystal light, gatorade zero, or propel on 11/07/24 and the same amount on 11/08/24. The Miralax you begin with one packet at a time in 8oz water or crystal light, gatorade zero, or propel as early in the day as you can and you do them back to back until you finish them. Continue the protein shakes during the bowel prep. 4. Needs to purchase 1oz medicine cups . 5. Needs to purchase Children's liquid Tylenol for postop pain control. 6. Avoid aspirin, motrin, Advil, Aleve, Ibuprofen, Naproxyn. Tylenol is OK. 7. She needs to purchase the Celebrate multivitamins from the hospital's gift shop. 8. Will do basic preop blood work-up any day between Friday11/01/24 and Friday11/05/24 fasting for 12 hours and is scheduled to see the Anesthesiologist prior to the day of surgery. 9. Importance of adherence to postop folllow-up and recommendations was underscored and she understands that. 10. Stop food and bars as of Friday10/25/24 and continue with 4 Fairlife protein shakes (mix 4oz of Fairlife with 4oz almond milk) at 7am-9am, 10am-12pm, 1pm-3pm, 4pm-6pm and one more whole-bottle Fairlife protein shake at 7pm-9pm 11. No soups, broths or V8 12. The patient's medical history has been reviewed and they are considered low risk for post op DVT and therefore DVT prophylaxis is not considered necessary. Travel after surgery was reviewed. The patient has not disclosed any travel plans during the first 30 days after surgery and they have been advised that within the first 30 days after surgery any bus, plane, train or car travel over 2 hours in duration is contraindicated due to the possibility of developing blood clots from immobility. Any travel, needs to include periods of ambulation of 10 minutes in duration every 2 hours. Patient was instructed to discuss any plans for travel during this period with their bariatric surgeon. 13. Please take at the day of surgery the following medications: NONE 14. Stop any control pills and don't use them for one month after surgery 15. Absolutely no smoking or vaping, or marijuana until the surgery and for at least the first 4 weeks. Only nicotine patches are allowed. 16. Send me weight measurements on Friday10/23/24, Friday10/30/24, Friday11/06/24 and then on Friday11/09/24, the day of surgery before you go to the hospital. 17. Avoid any steroids by mouth for any reason. Let me know if someone prescribes them to you 18. These instructions supersede anything else you read in the handbook, anything you watched in videos or classes or you were told by any other provider. If there is any conflict, you follow the above instructions and nothing else. Orders: Orders Comprehensive Met. Panel 10/21/24 E66.9 - Obesity, unspecified, Z68.37 - Body mass index [BMI] 37.0-37.9, adult Type and Screen 10/21/24 E66.9 - Obesity, unspecified, Z68.37 - Body mass index [BMI] 37.0-37.9, adult Lipid Panel 10/21/24 E66.9 - Obesity, unspecified, Z68.37 - Body mass index [BMI] 37.0-37.9, adult Hemoglobin A1c 10/21/24 E66.9 - Obesity, unspecified, Z68.37 - Body mass index [BMI] 37.0-37.9, adult Partial Thromboplastin Time 10/21/24 E66.9 - Obesity, unspecified, Z68.37 - Body mass index [BMI] 37.0-37.9, adult Complete Blood Count Auto Diff 10/21/246.9 - Obesity, unspecified, Z68.37 - Body mass index [BMI] 37.0-37.9, adult Insulin 10/21/24. - Obesity, unspecified, Z68.37 - Body mass index [BMI] 37.0-37.9, adult TSH reflex Free T4 10/21/24. - Obesity, unspecified, Z68.37 - Body mass index [BMI] 37.0-37.9, adult Prothrombin Time INR 10/21/24. - Obesity, unspecified, Z68.37 - Body mass index [BMI] 37.0-37.9, adult C Reactive Protein 10/21/24. - Obesity, unspecified, Z68.37 - Body mass index [BMI] 37.0-37.9, adult Medications: New sucralfate 10 mL PO BID 600 mL 2RF K21.9 - Gastro-esophageal reflux disease without esophagitis polyethylene glycol 3350 Mix each measuring cup with 8oz of water, Crystal light, or Gatorade zero, or Propel and do 7 measuring cups on 11/07/24 and another 7 measuring cups on 11/08/24 17 grams PO DAILY 238 grams 0RF Z01.818 - Encounter for other preprocedural examination pantoprazole 40 mg PO DAILY 90 tabs 0RF K21.9 - Gastro-esophageal reflux disease without esophagitis ondansetron Only take one every 12 hours as needed if you have nausea 4 mg PO Q6H PRN 20 tabs 0RF nausea and vomiting R11.0 - Nausea
[2024-10-21 16:38] VITALS: BMI 37.3
== END 2024-10-22 15:04 | disposition home or self-care (01) ==
LOC: HO.HBS 08:16
PROVIDERS: PCP Internal Medicine; Visit Provider Surgery
DX: E66.812 Obesity, class 2 (principal); E66.09 Other obesity due to excess calories; Z68.37 Body mass index [BMI] 37.0-37.9, adult
CPT/HCPCS: 99214

== ENCOUNTER → 2024-11-04 10:55 | Outpatient (REF) | payer OTHER, SELFPAY ==
--- NOTE | 2024-11-04 10:57 | CA_ITS ---
Acquisition Time: 2024-11-04 11:12:16 Total Exercise Time: 00:06:20 Test Indications: ABN EKG, PREOP Medications: SEE H&P Protocol: MICHELL Max HR: 179 BPM 98% of Pred: 181 BPM Max BP: 132/72 mmHG Max Work Load: 7.5 METS Exercise stress test with exercise 6 mins 20 secs of Michell Protocol, achieving 93% MPHR, with reports of mild SOB, no chest pain, without any arrythmias, with normotensive response to exercise. Without any EKG changes meeting criteria for ischemia. In recovery, breathing returned to baseline. Echo images were obtained by tech at rest and post peak exercise. Definity contrast utilized. Test reviewed with Dr. Maldonado. Referred By: Babak Jimenez Electronically Signed By: Tacho Murray
--- OUTSIDE RECORDS SUMMARY | 2024-11-04 11:24 | XMS_ITS | Clinical Summary ---
Author Organization [facility] Address [address] [place] [address] Phone Care Team Providers Care District Traffic Chief Name Role Phone Carlotta Wilkinson MD Primary Care Provider [phone] Allergies No known active allergies Medications hydrOXYzine pamoate (VISTARIL) 25 mg capsule Take 1 capsule (25 mg total) by mouth 4 (four) times a day if needed for anxiety. 30 capsule 5 Active citalopram (CeleXA) 20 mg tablet Take 1 tablet (20 mg total) by mouth 1 (one) time each day. 90 each 1 5 Active cetirizine (ZyrTEC) 10 mg tablet Take 1 tablet (10 mg total) by mouth 1 (one) time each day. 90 each 5 Active traZODone (DESYREL) 50 mg tablet TAKE 1 TABLET BY MOUTH AT BEDTIME NEEDED FOR SLEEP. 90 tablet 1 5 Active etonogestreL-e thinyl estradioL (NUVARING) 0.12-0.015 mg/24 hr vaginal ring Insert vaginally and leave in place for 3 consecutive weeks, then remove for 1 week. 3 each 4 5 Active etonogestreL-e thinyl estradioL (NUVARING) 0.12-0.015 mg/24 hr vaginal ring Insert vaginally and leave in place for 3 consecutive weeks, then remove for 1 week. 1 each 4 5 10/28/19 25 Discontin ued(Reord er) Active Problems Problem Noted Date Diagnosed Date Severe obesity (BMI 35.0-39. 9) with comorbidity (CMS/HCC V24, CMS/HCC V28) 03/26/2024 Prediabetes 03/27/2020 Major depressive disorder with single episode Anxiety and depression 12/05/2016 Leiomyoma of uterus 09/20/2009 Chronic back pain 06/23/2008 Encounters Date Type Department Care Team Description 10/27/2024 1:30 PM EDT Office Visit Obstetrics and Gynecology - [address] [phone] Yeimy Benson CNM Encounter for annual routine gynecological examination (Primary Dx); Encounter for surveillance of vaginal ring hormonal contraceptive device; Screening mammogram for breast cancer 09/09/2024 3:15 PM EDT Office Visit Adult [address] [phone] Edyta Marte PA Subacute sinusitis, unspecified location (Primary Dx); Pharyngitis, unspecified etiology 09/07/2024 Telephone Adult Medicine [address] [phone] Roxi Chan RN 09/06/2024 8:45 AM EDT Office Visit [address] [phone] Carlotta Wilkinson MD Prediabetes (Primary Dx); Anxiety and depression from Last 3 Months Immunizations Name Administration Dates Next Due HPV, Quadrivalent 11/01/2008,06/30/2008,04/28/20 08 Hepatitis B (Xrqpfrg-V-Hgjnv , Recombivax HB-Adult) 19yo and older 06/14/2020,01/07/2020,12/08/2019 [...] Date Smoking Tobacco: Never Smokeless Tobacco: Never Alcohol Use Standard Drinks/Week Comments Yes 0 (1 standard drink = 0.6 oz pur e alcohol) occ 1-2 a week Housing Instability Answer Date Recorde d Are [...] is your living situation? 0 09/05/2024 Comments No Sex and Gender Information Value Date Recorded Sex Assigned at Not on file Legal Sex Female 12:17 PM EST Gender Identity Not on file Sexual Orientation Not on file Obstetrics History Para Term AB IAB SAB Ectopic Multiple Livin g Live Births 1 1 1 1 1 Date Outcome GA Total Labor Labor/2nd/3rd Weight Sex Type Anes PTL Manasa A1 A5 Name Clin 2013 Term M CS-LT ranv Livin g 8 9 denise braden Delivery Location:[facility] Comments:3 dy inductio n, FTP Last Filed Vital Signs Vital Sign Reading Time Taken Comments Blood Pressure 106/67 10/27/2024 1:33 PM EDT Pulse 70 10/27/2024 1:33 PM EDT Temperature 36.1 ??C (96.9 ??F) 09/09/2024 3:21 PM ED T Respiratory Rate 12 10/27/2024 1:33 PM EDT Oxygen Saturation 98% 09/09/2024 3:21 PM EDT Inhaled Oxygen Concentration - - Weight 106 kg (234 lb) 10/27/2024 1:33 PM EDT Height 167.6 cm (5' 6 ) 10/27/2024 1:33 PM EDT Body Mass Index 37.77 10/27/2024 1:33 PM EDT Plan of Treatment Upcoming Encounters Date Type Department Care Team (Late st Contact Info) Description 12/22/2024 9:00 AM EDT Office Visit Adult Medicine [facility] [address] [place] [address] Carlotta Wilkinson MD [address] [place] [address] Health Maintenance Due Date Last Done Comments Cholesterol Screening (Lipid Panel) 05/18/2022 HIV Screening 05/18/2022 Hepatitis C Screening 05/18/2022 COVID-19 Vaccine ( season) 2024 05/17/2022, 06/14/2021, 10/09/2020, Additional history exists Social Influencers of Health Screening 09/05/2025 09/05/2024 Depression Screening 10/27/2025 10/27/2024 Cervical Cancer Screening: HPV 04/22/2026 04/22/2021 DTaP,Tdap,and [...] A1C Routine 09/06/2024 9:11 AM EDT Prediabetes HM HPV Routine 04/22/2021 from Last 3 Months or Most Recently Relevant to Health Maintenance Results * Hemoglobin A1c (09/06/2024 9:11 AM EDT) Hemoglobin A1C 6.0 <6.5 % LAB CHEMISTRY METHOD 09/06/2024 2:05 PM EDT [facility] Mean Bld Glu Estim. 126 mg/dL LAB CHEMISTRY METHOD 09/06/2024 2:05 PM EDT [facility] Blood Venous blood specimen / Unknown Venipuncture / Unknown 09/06/2024 9:11 AM EDT 09/06/2024 9:11 AM EDT Carlotta Wilkinson MD LAB BLOOD ORDERABLES Final Resul t [facility] [address] [place] [address], [place] [phone] * Cervical Cancer Screening: HPV (04/22/2021) Cervical Cancer Screening: HPV negative, abstracted Historical Provider HEALTH MAINTENANCE Final Result from Last 3 Months or Most Recently Relevant to Health Maintenance Insurance [employer] [facility] Care Teams District Traffic Chief Relationship Specialty Start Date End Date Carlotta Wilkinson MD [address] [place] [phone] PCP - General Internal Medicine 05/19/15
== END ==
LOC: HO.CARD 10:55
PROVIDERS: PCP Internal Medicine; Visit Provider Surgery
DX: R94.31 Abnormal electrocardiogram [ECG] [EKG] (principal)
CPT/HCPCS: 93350; Q9957

== ENCOUNTER → 2024-11-04 10:57 | Outpatient (BNV) | payer OTHER, SELFPAY | PROVIDERS: PCP Internal Medicine | DX: R06.02 Shortness of breath (principal) | CPT/HCPCS: 93016; 93018; 93350; 93352 ==

== ENCOUNTER 2024-11-09 09:05 | Inpatient (IN) | payer OTHER, SELFPAY ==
[2024-10-18 12:26] VITALS: BP 119/74; PULSE 62; RESP 20; O2SAT 99; BMI 37.0
[2024-11-04 10:15] LABS: MANUAL DIFF FLAG NO
[2024-11-04 11:02] LABS: Basophils Percent Auto 0.5 % (0-2); Eosinophils Percent Auto 0.3 % (0-4); Hematocrit 38.3 % (37.0-47.0); Hemoglobin 12.4 g/dl (12.0-16.0); Imm Gran Abs Auto 0.01 X10*3/uL (0.00-0.03); Imm Gran Pct Auto 0.2 % (0.0-0.4); Lymphocytes Absolute Auto 2.5 X10*3/uL (1.2-4.9); Lymphocytes Percent Auto 43.1 % (20-40); Mean Corpuscular HGB Conc 32.4 g/dl (31.0-35.0); Mean Corpuscular Hemoglobin 28.2 pg (27.0-33.0); Mean Platelet Volume 10.6 fL (9.4-12.3); Monocytes Absolute Auto 0.5 X10*3/uL (0.1-1.2); Monocytes Percent Auto 7.8 % (2-11); Neutrophils Absolute Auto 2.8 x10*3/uL (2.0-8.3); Neutrophils Percent Auto 48.1 % (45-73); Platelet Count 291 X10*3/uL (160-400); Red Cell Distribution Width 13.5 % (11.0-16.0); White Blood Count 5.8 X10*3/uL (4.8-10.8)
[2024-11-04 11:05] LABS: Prothrombin Time 11.8 SEC (10.9-12.4)
[2024-11-04 11:07] LABS: Estimated Average Glucose 108 mg/dL; Hemoglobin A1C 117.6763 umol/L; Hemoglobin A1c % 5.4 % (<6.0); Total Hemoglobin (HGBA1C) 3274.8842 umol/L
[2024-11-04 11:08] LABS: Partial Thromboplastin Time 29.2 SEC (26.0-36.8)
[2024-11-04 11:26] LABS: Alanine Aminotransferase 51 U/L (0-31); Albumin Level 4.2 g/dL (3.5-5.0); Anion Gap 10 (12-20); Aspartate Amino Transferase 41 U/L (5-31); Bilirubin Total 0.3 mg/dL (0.0-1.0); Blood Urea Nitrogen 14 mg/dL (9-16); C Reactive Protein < 0.10 mg/dL (< or = 0.50); Calcium 9.6 mg/dL (8.4-10.2); Carbon Dioxide 29 mmol/L (22-29); Chloride 104 mmol/L (96-108); Cholesterol 179 mg/dL (<200); Creatinine Clr Calc Pharmacy 127.2; Estimated Glomerular Filt Rate > 60; Glucose Random 84 mg/dL (60-115); HDL Cholesterol 58 mg/dL (>40); LDL Cholesterol Calculated 108 mg/dL (<100); Sodium 139 mmol/L (135-145); Total Protein 7.2 g/dL (6.5-8.0); Triglycerides 69 mg/dL (<150)
[2024-11-04 11:48] LABS: Alkaline Phosphatase 52 U/L (39-117); Insulin 4 uU/mL (2-29); TSH reflex Free T4 0.33 uIU/mL (0.32-4.0)
--- NOTE | 2024-11-08 10:35 | P.CONAN_ITS ---
Documented by User: Mary Medina NP 11/08/24 10:36 HPI - Anesthesia Eval Consult details Narrative: 39yo F for Gastrectomy Sleeve,EGD,possibel Diaphragmatic Hernia,possible Ventral Hernia,possible Open PMFSH Active Problems Active Problems: All Active Problems Obesity (Acute) URI, acute (Acute) Abnormal EKG (Acute) Vitamin B1 deficiency (Acute) Vitamin B12 deficiency (Acute) Vitamin D deficiency (Acute) Insomnia (Acute) Anxiety (Acute) Depression (Acute) Morbid obesity (Acute) Past Medical History Medical History Obesity Pre-diabetes Insomnia Anxiety Depression Morbid obesity Family History Family history of problems with anesthesia: No Surgical History Surgical History History of esophagogastroduodenoscopy (EGD) History of delivery Hx of breast reduction, elective History of Problems with Anesthesia: No Social History Social History Are you a primary out of school hours care worker to a significant other at home: No Do you presently have visiting nurse or other home services: No Alcohol intake: current Alcohol intake frequency: a few times a month Alcohol type: wine Patient Tobacco Use Status: Never used Tobacco Use of substances other than those prescribed or required for medical reasons: Yes Substance Use Type Other:: gummies Substance Use Frequency: Occasionally Have you been hit, kicked, punched, or otherwise hurt by someone within the past year? If so, by whom?: No Are you DNR?: No Advance Directives: No Advance Directives Information Provided: No Advance Directives on File: No Patient : No : No Poor oral hygiene: Yes Meds Allergies Allergy/AdvReac Type Severity Reaction Status Date / Time No Known Allergies Allergy Verified 11/09/24 09:40 Home Medications ?Medication ?Instructions ?Recorded ?Confirmed ?Last Taken ?Type citalopram 20 mg tablet 20 mg PO DAILY 06/13/23 10/21/24 09/29/24 History hydroxyzine HCl 50 mg tablet 50 mg PO TID PRN Anxiety 06/13/23 10/21/24 09/29/24 History trazodone 50 mg tablet 50 mg PO BEDTIME 06/13/23 10/21/24 09/29/24 History Exam Height,Weight and Vital Signs: Height 5 ft 6.5 in Weight 105.687 kg Last Vital Signs Pulse 62 10/18/24 12:26 Resp 20 10/18/24 12:26 BP 119/74 10/18/24 12:26 Pulse Ox 99 10/18/24 12:26 O2 Del Method Room Air 10/18/24 12:26 Pertinent Lab Results Pertinent Lab Results: Laboratory Tests 11/04/24 11/04/24 10:04 10:14 WBC 5.8 RBC 4.40 Hgb 12.4 Hct 38.3 MCV 87.0 MCH 28.2 MCHC 32.4 RDW 13.5 Plt Count 291 D MPV 10.6 Immature Gran % (Auto) 0.2 Neut % (Auto) 48.1 Lymph % (Auto) 43.1 H Moca % (Auto) 7.8 Eos % (Auto) 0.3 Baso % (Auto) 0.5 Lymph # (Auto) 2.5 Moca # (Auto) 0.5 Eos # (Auto) 0.0 Baso # (Auto) 0.0 Abs Immat Gran (auto) 0.01 Absolute Neuts (auto) 2.8 Absolute Nucleated RBC 0.000 Nucleated RBC % (auto) 0.0 PT 11.8 INR 1.0 APTT 29.2 Sodium 139 Potassium 4.0 Chloride 104 Carbon Dioxide 29 Anion Gap 10 L BUN 14 Creatinine 0.73 Estim Creat Clear Calc 127.2 Estimated GFR > 60 Random Glucose 84 Estimat Average Glucose 108 Hemoglobin A1c % 5.4 Insulin Level 4 Calcium 9.6 Total Bilirubin 0.3 AST 41 H ALT 51 H Alkaline Phosphatase 52 C-Reactive Protein < 0.10 Total Protein 7.2 Albumin 4.2 Triglycerides 69 Cholesterol 179 LDL Cholesterol, Calc 108 H HDL Cholesterol 58 TSH 0.33 Blood Type O Positive Antibody Screen NEGATIVE Narrative Narrative: EKG 09/2024 Vent. Rate : 70 BPM Atrial Rate : 70 BPM P-R Int : 152 ms QRS Dur : 78 ms QT Int : 392 ms P-R-T Axes : 49 -1 17 degrees QTcB Int : 423 ms Normal sinus rhythm with sinus arrhythmia Cannot rule out Anterior infarct (cited on or before 16-Jul-2024) Abnormal ECG When compared with ECG of 16-Jul-2024 10:59, No significant change was found Stress ECHO 10/2024 Conclusion : Stress echo is negative for ischemia at HR and workload achieved. Assessment and Plan Assessment Anesthesia Assessment: Chart Reviewed Final Anesthetic Review Family History of Problems with Anesthesia: No History of Problems with Anesthesia: No Documented by User: Elise Caal MD 11/09/24 10:17 ON LICENSE OF [facility] Past Medical History Medical History Obesity Pre-diabetes Insomnia Anxiety Depression Morbid obesity Surgical History Surgical History History of esophagogastroduodenoscopy (EGD) History of delivery Hx of breast reduction, elective Social History Social History Are you a primary out of school hours care worker to a significant other at home: No Do you presently have visiting nurse or other home services: No Alcohol intake: current Alcohol intake frequency: a few times a month Alcohol type: wine Patient Tobacco Use Status: Never used Tobacco Use of substances other than those prescribed or required for medical reasons: Yes Substance Use Type Other:: gummies Substance Use Frequency: Occasionally Have you been hit, kicked, punched, or otherwise hurt by someone within the past year? If so, by whom?: No Are you DNR?: No Advance Directives: No Advance Directives Information Provided: No Advance Directives on File: No Patient : No : No Poor oral hygiene: Yes Meds Allergies Allergy/AdvReac Type Severity Reaction Status Date / Time No Known Allergies Allergy Verified 11/09/24 09:40 Home Medications ?Medication ?Instructions ?Recorded ?Confirmed ?Last Taken ?Type citalopram 20 mg tablet 20 mg PO DAILY 06/13/23 10/21/24 09/29/24 History hydroxyzine HCl 50 mg tablet 50 mg PO TID PRN Anxiety 06/13/23 10/21/24 09/29/24 History trazodone 50 mg tablet 50 mg PO BEDTIME 0110/21/24 09/29/24 History Exam Airway Mallampati Class: II TM Dist: >3cm Neck ROM: Full Loose/Missing/Broken Teeth: No Heart: RRR Lungs: CTA Assessment and Plan Assessment Anesthesia Assessment: Anesthesia Plan Discussed Final Anesthetic Review NPO: Yes ASA Class: II Final Preanesthetic Review: Meds/Allgs Chart Reviewed, Consent Obtained/Reviewed and Anes Risks/Benef Reviewed Patient Risk: Low Procedure Risk: Intermediate Anesthetic Plan Anesthetic Plan: GA Disposition: Standard PACU
[2024-11-09] VITALS (12 sets, daily range): BP systolic 125–165; BP diastolic 66–96; PULSE 66–94; RESP 14–19; TEMP 36.3–36.9; O2SAT 92–100; BMI 35.8
[2024-11-09 09:20] LABS: UPreg QC Valid YES; Urine Pregnancy NEGATIVE (NEGATIVE)
--- NOTE | 2024-11-09 09:20 | PHA.MEDREC ---
Pharmacy Consult ? Medication Reconciliation Pharmacy has completed the medication reconciliation. CHECKED NURSING MED REC
[2024-11-09] MEDS: Lactated Ringers 1,000 ML 100 ML IVCONT ×3 (09:33→23:28)
[2024-11-09] MEDS: Aprepitant 32 MG/4.4 ML VIAL IVPUSH (09:34)
[2024-11-09] MEDS: Lactated Ringers 1,000 ML 999 ML IV (09:34)
--- OUTSIDE RECORDS SUMMARY | 2024-11-09 10:04 | XMS_ITS | Clinical Summary ---
Author Organization [facility] Address [address] [place] [address] Phone Care Team Providers Care Ladle Puller Name Role Phone Carlotta Wilkinson MD Primary Care Provider [phone] Allergies No known active allergies Medications hydrOXYzine [...] Office Visit Obstetrics and Gynecology - [address] [phone] Yeimy Benson CNM Encounter for annual routine gynecological examination (Primary Dx); Encounter for surveillance of vaginal ring hormonal contraceptive device; Screening mammogram for breast cancer 09/09/2024 3:15 PM EDT Office Visit Adult [address] [phone] Edyta Marte PA Subacute sinusitis, unspecified location (Primary Dx); Pharyngitis, unspecified etiology 09/07/2024 Telephone Adult Medicine [address] [address] Roxi Chan RN 09/06/2024 8:45 AM EDT Office Visit [address] [phone] Carlotta Wilkinson MD Prediabetes (Primary Dx); Anxiety and depression from Last 3 Months Immunizations Name Administration Dates Next Due HPV, Quadrivalent 11/01/2008,06/30/2008,04/28/20 08 Hepatitis B (Pspaqfy-L-Mzczv , Recombivax HB-Adult) 19yo and older 06/14/2020,01/07/2020,12/08/2019 [...] Livin g 8 9 denise braden Delivery Location:[facility] Comments:3 dy inductio n, FTP Last Filed [...] 9:00 AM EDT Office Visit Adult Medicine [facility] [address] [place] [address] Carlotta Wilkinson MD [address] [place] [address] Health Maintenance Due Date Last Done Comments [...] t [facility] [address] [place] [address], [place] [phone] * Cervical Cancer Screening: HPV (04/22/2021) Cervical Cancer Screening: HPV negative, abstracted Historical Provider HEALTH MAINTENANCE Final Result from Last 3 Months or Most Recently Relevant to Health Maintenance Insurance [employer] [employer] [facility] Care Teams Ladle Puller Relationship Specialty Start Date End Date Carlotta Wilkinson MD [address] [place] [id number] PCP - General Internal Medicine 05/19/15
--- NOTE | 2024-11-09 10:15 | MHC.SHP ---
Pre-Procedural Eval Section A - 24 Hr Update-Section A only Date of Service: 11/09/24 The patient is an INPATIENT: Yes The patient has been examined within 24 hours of the surgical procedure. The History & Physical has been completed within 30 days and I have reviewed it.: Yes Section B - Complete if H&P > 30 days Chief Complaint: obesity Relevant Family History (Specify if Yes): No Relevant Social History: None Present Medications: None Medical History: No relevant PMH History of Previous Operations: No relevant previous surgery Allergies: Allergies Allergy/AdvReac Type Severity Reaction Status Date / Time No Known Allergies Allergy Verified 11/09/24 09:40 Review of Systems Sugical H&P ROS: Negative: Constitution, Cardiovascular, Respiratory, Neurological, Psychiatric, Hem-Onc, Allergic/Immunologic, Gastrointestinal, Genitourinary, Musculoskeletal, Integumentary, Endocrine and Eyes/Ears/Nose/Throat Exam Surgical H&P Exam: Normal: HEENT, Normal: Heart, Normal: Lungs, Normal: Extremities, Normal: Abdomen, Normal: Skin and Normal: Neurological Plan Diagnosis/Plan: Unchanged I have reviewed the history and physical and performed a pertinent physical examination on my patient. No changes have occurred unless specified. Time Spent With Patient Time: Total time managing care of this patient today ____ minutes.
--- NOTE | 2024-11-09 10:17 | P.BOP_ITS ---
Brief Operative Note Date of Service: 11/09/24 Pre-op diagnosis: Severe obesity with comorbidities (see below) Post-op diagnosis: same (Significant hepato-splenomegaly) Procedure: INITIAL PATIENT BMI ON PRESENTATION AT OUR OFFICE: 40 kg/m2 LAST BMI BEFORE SURGERY: 36.6 kg/m2 COMORBIDITIES: Insomnia, depression, anxiety ?The patient presented to the Weight Management Program with significant obesity that was negatively impacting the patient's comorbidities as listed above.? The program is a phased program with a special focus on preoperative medical weight management to promote substantial weight loss and prepare the patients for the second phase of the program: bariatric surgery. The patient participated in an intensive weekly lifestyle ?intervention and exercise program during which the patient ?has lost between the initial office visit and the last preoperative visit 25.2lbs, or 10% of initial actual body weight. It was deemed appropriate for the patient to now have bariatric surgery. In light of the current Covid-19 pandemic and the well documented strong association of obesity and increased risk of worse outcomes if infected with Covid-19 (REFERENCES: https://pubmed.ncbi.nlm.nih.gov/00779008/ ,? https://pubmed.ncbi.nlm.nih.gov/38046934/ ), any delay in undergoing bariatric surgery may lead to the patient's worsening health condition and increased?risk of more severe Covid-19 disease if infected. In addition a recent?study from [facility] published in [employer] on 06/04/2021 ([email or web address]) found that, among patients with obesity, substantial weight loss achieved with surgery was associated with improved outcomes of COVID-19 infection. The findings suggest that obesity can be a modifiable risk factor for the severity of COVID-19 infection. In addition, the patient met the BMI-criteria for bariatric surgery based on the BMI on initial presentation. The patient should not be penalized for achieving such weight loss because ?it is not sustainable long-term without surgical intervention and it was achieved in preparation for bariatric surgery ?under my direction and based on my published research ([email or web address]).pdf and? https://www.soard.org/article/[email or web address](59)67253-X/pdf ) ?that a 10% preoperative weight loss improves long-term weight loss after surgery and reduces perioperative complications.? Insurance carriers such as [facility] have endorsed my recommendations ?and have included in their policies criteria to include a 10% preoperative weight loss requirement. PROCEDURE: Esophago-gastroscopy, laparoscopic lysis of adhesions, laparoscopic sleeve gastrectomy and laparoscopic gastropexy INDICATIONS: This is a 39 year-old female who was electively scheduled for laparoscopic, possibly open sleeve gastrectomy. The risks and complications of the procedure were discussed with the patient in advance, particularly the possibility of ; pulmonary embolism; staple line leak; bleeding; GERD; cardiac, pulmonary, or renal complications; as well as long-term problems such as insufficient weight loss, vitamin deficiency, strictures, or ulcers. The patient understood all the risks, and was in agreement to proceed with surgery. DESCRIPTION OF PROCEDURE: After informed consent was obtained from the patient, the patient was given preoperative antibiotics, and was transferred to the operating room. After successful induction of general anesthesia, pneumatic compression devices were placed on both lower extremities. An upper endoscopy was performed next. The oropharynx and esophagus appeared to be within normal limits. There was a diaphragmatic hernia present of moderate size consistent with the findings of the preoperative upper GI. The stomach was entered. Then after all fluid and air were suctioned and the stomach was fully decompressed, the scope was withdrawn and secured in the mid esophagus. The patient was then prepped and draped in the usual sterile manner, and abdominal access was established at the right upper quadrant with the Elaine technique. A 12 mm blunt port was inserted, and the abdomen was insufflated with CO2 to a pressure of 15 mmHg. Under direct visualization, additional ports were placed, specifically two 5 mm Versi-step ports to the left upper quadrant, and a 5 mm Versi-Step port to the right upper quadrant. 1% lidocaine plain was used to infiltrate all port sites as well as all fascia defects. Following that, the patient was placed in a steep reverse Trendelenburg position. An additional 5 mm port was placed to the right flank for the Mediflex retractor that was used to retract the left lobe of the liver. The gastro-esophageal fat pad was opened with the ultrasonic device (Thunderbeat, TrashOut) and the anterior esophagus and hiatus were exposed. The angle of His was opened with the ultrasonic device the fundus of the stomach from any diaphragmatic and splenic attachments. I then opened the gastrocolic ligament between the transverse colon and the greater curvature of the stomach with the ultrasonic device to enter the lesser sac and facilitate the ligation of the short gastric vessels. I started at a mid-point along the greater curvature and using the Thunderbeat, all short gastric vessels were divided all the way to the angle of His until the left tonya was completely dissected at its entirety. I then divided the gastro-colic ligament distally to a distance of about 3-4 cm proximal to the pylorus. The patient had a very enlarged spleen literally enveloping the stomach which made dissection very difficult. Howver I was able to mobilize the stomach completely without injury to the spleen. There were extensive congenital adhesions between the pancreas and posterior gastric wall. Those were lysed completely with the ultrasonic device. Adhesiolysis took approximately 45 min to complete. The stomach was then divided transversely with one Endo LEE-45 purple and four LEE-60 articulating orange loads using the Synchroneuron stapler and loads. Every effort was made that the gastric sleeve had a tubular shape and an even caliber throughout. Once the sleeve resection was completed, the staple line of the gastric sleeve was reinforced with Hemoclips. The resected stomach was retrieved without difficulty from the Elaine port. A gastropexy was then performed in order to prevent postoperative GERD and partial gastric volvulus. Several interrupted 2.0 Surgidac sutures were placed between the sleeve's staple line and the previously divided greater omentum and gastro-colic ligament using the Endo-Stitch device. ?An upper endoscopy was performed. There was no narrowing at the GE junction. The scope was easily advanced all the way to the pylorus which was clearly visualized. There was no narrowing anywhere and the sleeve's caliber was even throughout. The sleeve's staple line was inspected and there was no evidence of ischemia, bleeding or dehiscence. At that point the gastroscope was withdrawn from the patient?s mouth while we were decompressing the bowel and the stomach from any remaining air. I looked into the lesser sac to see how the sleeve was situating and it was situating well. There was no bleeding from the staple line, spleen, or short gastric vessels. The Mediflex retractor was removed, and the undersurface of the liver was inspected and there was no bleeding. The patient was placed in supine position. I closed the fascial defect of the 12 mm port site with a figure of eight #1 Polysorb suture. Then 30cc Ropivacaine plain with 10 mg of Dexamethasone were used to infiltrate the fascial closure as well as all skin incisions. At this point, the abdomen was deflated, all ports were removed under direct vision, and no bleeding was noted from any of the port sites. The skin incisions were irrigated with saline and were closed with 4-0 absorbable monofilament sutures. Steri-Strips and OpSites were used to cover all incisions. The patient was extubated and was transferred in stable condition to the recovery room for further care. I was present and performed all franco parts of the procedure. Mr. Hernandez was the clinical trial assistant. There were no residents to assist with this case. Ander Jimenez MD, PhD, FACS Surgeon: Babak Jimenez MD Anesthesia: GETA, local and other (TAP block) Was an Battery Container Finishing Hand used for this Procedure?: No Battery Container Finishing Hand: Gopal Hernandez Estimated blood loss (mL): 10 IV fluids (mL): 1,900 Urine output (mL): 0 (No Hickman to record output) Pathology: other (1) Stomach, 2) Gastro-esophageal fat pad) Condition: stable Disposition: PACU
--- NOTE | 2024-11-09 10:19 | PM.PNGS ---
Subjective Subjective Date of Service: 11/10/24 Interval history: Feels well. Mild incisional pain. She is tolerating phase 1 bariatric diet Physical Exam Vital Signs: Vital Signs: Last Vital Signs Temp 98.2 F 11/09/24 09:39 Pulse 78 11/09/24 09:39 Resp 18 11/09/24 09:39 BP 139/71 11/09/24 09:39 Pulse Ox 97 11/09/24 09:39 O2 Del Method Room Air 11/09/24 09:39 BMI result Body Mass Index 35.8 GI: Inspection: Yes normal to inspection, Yes incision (clean, dry and intact) and Yes obesity Extrem: Right lower extremity: normal to inspection (no calf tenderness) Left lower extremity: normal to inspection (no calf tenderness) Objective Data Active Medications Lactated Ringer's (Lr) 1,000 mls @ 100 mls/hr IVCONT .Q10H [facility] Last Admin: 11/09/24 09:33 Dose: 100 mls/hr Documented By: BO Lactated Ringer's (Lr) 1,000 mls @ 999 mls/hr IV .Q1H1M [facility] Stop: 11/09/24 11:15 Last Admin: 11/09/24 09:34 Dose: 999 mls/hr Documented By: BO Labs 11/10/24 05:42 11/10/24 05:42 Labs: Laboratory Results - last 24 hr 11/09/24 09:00 Urine Test NEGATIVE Procedures Date of Service Date of Service: 11/10/24 Progress Note: A&P Assessment and plan (1) Obesity: Status: Acute Assessment and Plan: s/p laparoscopic sleeve gastrectomy, lysis of adhesions and gastropexy Doing well Will check am labs and if OK the patient will be discharged home (2) BMI 36.0-36.9,adult: Status: Acute (3) Depression: Status: Acute (4) Anxiety: Status: Acute (5) Insomnia: Status: Acute (6) S/P laparoscopic sleeve gastrectomy: Status: Acute (7) Splenomegaly: Status: Acute (8) Hepatomegaly: Status: Acute (9) Congenital intra-abdominal adhesions: Status: Acute Time Spent With Patient Time: Total time managing care of this patient today ____ minutes. Quality Stroke Does the patient have a stroke diagnosis?: No VTE Prior VTE?: No VTE Risk Level:: Surgical - moderate VTE Device Contraindication: N/A - Device Ordered VTE Drug Contraindication: N/A - Med Ordered
[2024-11-09] MEDS: ceFAZolin Sodium/Dextrose,Iso 2 GM/50 ML PIGGYBACK IV ×2 (10:45→16:13)
--- NOTE | 2024-11-09 12:58 | PM.DS ---
DS: Providers Provider Date of Service: 11/10/24 Date of admission: 11/09/24 09:05 Date of discharge: 11/10/24 Primary care physician: Carlotta Wilkinosn MD DS: Diagnosis Discharge Diagnosis (1) Obesity: Status: Acute (2) BMI 36.0-36.9,adult: Status: Acute (3) Depression: Status: Acute (4) Anxiety: Status: Acute (5) Insomnia: Status: Acute DS: Summary Hospital Course Hospital Course: ADMITTING DIAGNOSIS: obesity, anxiety, depression ? DISCHARGE DIAGNOSIS: same, s/p laparoscopic sleeve gastrectomy ? PAST SURGICAL HISTORY: cesarian section, breast reduction ? PROCEDURE: upper endoscopy, laparoscopic sleeve gastrectomy ? DISCHARGE SUMMARY: ? History of Present Illness: ? The patient is a?39 year-old woman with a BMI of?40 kg/m2 and associated co-morbidities as described above. The patient had extensive work-up,lost?19.5 lbs preoperatively and was electively scheduled for laparoscopic, possible open sleeve gastrectomy and gastropexy. Risks and complications of the surgery were discussed with the patient in advance, particularly the possibility of , pulmonary embolism, anastomotic leak, bleeding, bowel injury, GERD, cardiac, renal or pulmonary complications. The patient understood all the risks and was in agreement with the surgical plan. ? Hospital Course: ? The patient underwent an uneventful laparoscopic sleeve gastrectomy with gastropexy on the day of admission. Postoperatively, the patient was transferred to the surgical floor. The patient received IV Acetaminophen and IV dilaudid for pain control. Patient was started on bariatric phase 1 diet POD #0. On postoperative day one, the patient was feeling well without nausea, vomiting, fevers, or tachycardia. The patient had some mild incisional pain and the abdomen was soft. ? On the morning of postoperative day one, the patient was continued on 1 ounce of water or ice every half hour. During the day, the patient did fairly well, having some incisional pain, but able to ambulate adequately and to tolerate liquids well. ? Since the patient is doing well, we decided that the patient was ready to be discharged. The patient was given instructions to follow-up with me next week and to call my office for any fever over 101, persistent abdominal pain, nausea, vomiting, GERD, symptoms of DVT such as calf tenderness, or leg swelling, or pulmonary embolism such as chest pain or shortness of breath. The patient was also instructed to drink 40-60 ounces of liquids per day using the 1-ounce cups. The patient had been given prescriptions for Tylenol for pain, Zofran prn for nausea, and pantoprazole and carafate previously. The patient was encouraged to ambulate and use the incentive spirometer. The patient was allowed to shower, but no baths, and encouraged to stay active at home. All of these instructions were given to the patient personally. All questions were answered and the patient understood all instructions, the instructions were also given to the patient in print. Time Attestation Total time managing care of this patient today: 25 mintues. Discharge Coordination Time (in mins): 25 Quality: Safe Use of Opioids Does Pt have an Active Cancer Diagnosis on the Problem List?: No Quality: Stroke Does the patient have a stroke diagnosis?: No Physical Exam Vital Signs: Vital Signs: Last Vital Signs Temp 98.2 F 11/09/24 09:39 Pulse 78 11/09/24 09:39 Resp 18 11/09/24 09:39 BP 139/71 11/09/24 09:39 Pulse Ox 97 11/09/24 09:39 O2 Del Method Room Air 11/09/24 09:39 BMI result Body Mass Index 35.8 DS: Data Data Completed and Pending Pending studies at discharge: Pending at discharge 11/09/24 11:37 Surgical [PTH] Routine Labs on day of discharge: Laboratory Results - last 24 hr 11/09/24 09:00 Urine Test NEGATIVE Discharge Plan Discharge Anticipated Discharge Date/Time: 11/10/24 10:00 Patient Disposition: Home, Self-Care Discharge Diagnosis: s/p laparoscopic sleeve gastrectomy Referrals: Carlotta Wilkinson MD [Primary Care Provider] - 1 Week Discharge Medications: Continued ondansetron 4 mg tablet,disintegrating 4 mg PO Q12H PRN (Reason: nausea and vomiting) Qty: 20 0RF Rx Instructions: Only take one every 12 hours as needed if you have nausea citalopram 20 mg tablet 20 mg PO DAILY trazodone 50 mg tablet 50 mg PO BEDTIME hydroxyzine HCl 50 mg tablet 50 mg PO TID PRN (Reason: Anxiety) pantoprazole 40 mg tablet,delayed release (DR/EC) 40 mg PO DAILY Qty: 90 0RF sucralfate 100 mg/mL suspension 10 ml PO BID Qty: 600 2RF Discontinued polyethylene glycol 3350 17 gram/dose powder 17 g PO DAILY Qty: 238 0RF Rx Instructions: Mix each measuring cup with 8oz of water, Crystal light, or Gatorade zero, or Propel and do 7 measuring cups on 11/07/24 and another 7 measuring cups on 11/08/24 Discharge Orders: Discharge Order (Routine); Ordered 11/10/24 Ordered By: Babak Jimenez Activity on Discharge: No heavy lifting Stand Alone Forms: Patient Portal Discharge page Print Language: German Care Plan Goals: weight loss Health Concerns: obesity Plan of Treatment: No tub baths, sex or returning to work until discussed at first post op appointment. No exercise, alcohol, tobacco or illegal drug use. Continue to use incentive spirometer hourly while awake. Walk in home for 5- 10 minutes every 2 hours during the first week. Follow all instructions in the bariatric handbook and call with any questions.Discharge Instructions 1. Please call your doctor or come back to the emergency room should any new symptoms arise. 2. You will receive a courtesy call from [facility] 24-48 hours after discharge. 3. Activity: abstain from alcohol, practice limited stair climbing, no bending, no driving, no exercise, no illicit substances, no lifting, no sex, no tub bath, no work. 4. Diet: continue as discussed with Dr. Jimenez. 5. Dressing Change/Wound Care: Your incision is covered by clear bandages and guaze underneath. If the area is tender, you may apply an ice pack for short intervals (no more than 20 minutes on, followed by at least 20 minutes off). Do not apply heat. Do not use creams, lotions, or topical antibiotics unless instructed to do so by your surgeon. These can cause infection or allergic reaction. 6. Call your doctor if: - Your temperature exceeds 101.5 F - You experience excessive pain or swelling - You have an unexpected reaction to medication - You have excessive bleeding - You experience continued vomiting/nausea - Your incision begins to separate - Your incision shows signs of infection such as increased redness, swelling, excessive pain, heat, or drainage (light blood or clear fluid is normal) 7. General instructions: No lifting greater than 5 lbs for 1 week and not more than 20lbs the next 3?weeks. No driving until seen at the office in 5-7 days after surgery. If you do not move your bowels in the next 2 days, please tell?Dr. Jimenez. Please walk around your home every hour or two to prevent blood clots from forming in your legs. You do not need to wake from sleeping to walk. Please sleep in a bed or couch to prevent kinking at the hips and knees. Please take your incentive spirometer (your lung registration manager) home with you and use it for the next few days to prevent pneumonia. You may shower, no hot tubs, baths or swimming pools.?Please follow the post op diet instructions you are?given by Dr Jimenez? and text me daily at 5-6pm for an update.?If you have any issues or concerns or questions please communicate this to him via text.? The Celebrate shakes have all of the bariatric vitamins you need if you consume these shakes. If you are drinking other protein shakes, you will need to purchase the Celebrate multivitamins and calcium that are available in the hospital gift shop on the first floor of the [facility].??Do not take anything without first discussing with Dr Jimenez. Please make sure you are consuming at least 40 ounces of fluids per day starting the?day AFTER your discharge from the hospital. Always drink 1-2 ml per minute using the 5ml?syringe. If you drink faster you may experience?bloating,?gas pain, burping, nausea or heartburn. In that case please slow down your pace and use the syringe to?understand better the?proper?pace and volume of drinking. Do not hesitate to contact the office with any questions at . The patient's medical history has been reviewed and they are considered low risk for post op DVT and therefore DVT prophylaxis is not considered necessary. Travel after surgery was reviewed. The patient has not disclosed any travel plans during the first 30 days after surgery and they have been advised that within the first 30 days after surgery any bus, plane, train or car travel over 2 hours in duration is contraindicated due to the possibility of developing blood clots from immobility. Any travel, needs to include periods of ambulation of 10 minutes in duration every 2 hours.? The patient was instructed to discuss any plans for travel during this period with their bariatric surgeon. Assessment: stable s/p laparoscopic sleeve gastrectomy Discharge Date/Time: 11/10/24 08:41
[2024-11-09] MEDS: Haloperidol Lactate 5 MG/ML VIAL 1 MG IVPUSH (13:26)
[2024-11-09 14:00] LABS: Hematocrit 37.3 % (37.0-47.0); Hemoglobin 12.2 g/dl (12.0-16.0)
[2024-11-09 14:27] LABS: Anion Gap 11 (12-20); Blood Urea Nitrogen 12 mg/dL (9-16); Calcium 8.8 mg/dL (8.4-10.2); Carbon Dioxide 25 mmol/L (22-29); Chloride 104 mmol/L (96-108); Creatinine Clr Calc Pharmacy 126.5; Estimated Glomerular Filt Rate > 60; Glucose Random 147 mg/dL (60-115); Potassium 3.6 mmol/L (3.3-5.1); Sodium 136 mmol/L (135-145)
[2024-11-09] MEDS: Acetaminophen 1,000 MG/100 ML PIGGYBACK 16.7 MG IV ×2 (17:00→22:27)
[2024-11-09] MEDS: HYDROmorphone HCl 0.5 MG/0.5 ML SYRINGE 0.25 MG IVPUSH ×2 (18:11→23:33)
[2024-11-09] MEDS: traZODone HCL 50 MG TABLET PO (20:00)
[2024-11-10 04:00] VITALS: BP 152/77; PULSE 65; RESP 18; TEMP 36.1; O2SAT 95
[2024-11-10] MEDS: Acetaminophen 1,000 MG/100 ML PIGGYBACK 16.7 MG IV (04:18)
[2024-11-10] MEDS: Pantoprazole Sodium 40 MG/10 ML VIAL IVPUSH (05:47)
[2024-11-10 06:16] LABS: MANUAL DIFF FLAG NO
[2024-11-10 06:34] LABS: Basophils Percent Auto 0.1 % (0-2); Hematocrit 37.2 % (37.0-47.0); Imm Gran Abs Auto 0.06 X10*3/uL (0.00-0.03); Imm Gran Pct Auto 0.4 % (0.0-0.4); Lymphocytes Absolute Auto 1.9 X10*3/uL (1.2-4.9); Lymphocytes Percent Auto 14.2 % (20-40); Mean Corpuscular HGB Conc 32.3 g/dl (31.0-35.0); Mean Corpuscular Volume 86.9 fL (80.0-98.0); Mean Platelet Volume 10.8 fL (9.4-12.3); Monocytes Percent Auto 7.3 % (2-11); Neutrophils Absolute Auto 10.5 x10*3/uL (2.0-8.3); Platelet Count 254 X10*3/uL (160-400); Red Blood Count 4.28 X10*6/uL (4.20-5.50); Red Cell Distribution Width 13.7 % (11.0-16.0); White Blood Count 13.5 X10*3/uL (4.8-10.8)
[2024-11-10 06:39] LABS: Anion Gap 13 (12-20); Blood Urea Nitrogen 6 mg/dL (9-16); Carbon Dioxide 26 mmol/L (22-29); Chloride 102 mmol/L (96-108); Creatinine Clr Calc Pharmacy 142.3; Estimated Glomerular Filt Rate > 60; Glucose Random 93 mg/dL (60-115); Potassium 3.8 mmol/L (3.3-5.1); Sodium 137 mmol/L (135-145)
[2024-11-10] MEDS: Escitalopram Oxalate 10 MG TABLET PO (06:56)
[2024-11-10 07:45] VITALS: BP 157/86; PULSE 62; RESP 18; TEMP 36.3; O2SAT 99
--- NOTE | 2024-11-10 08:55 | MHC.CM.PN ---
pt douglas prior to being seen by cm pt douglas home self care
--- NOTE | 2024-11-10 09:37 | HO.POSTANES ---
Post Anesthesia Evaluation Post Anesthesia Evaluation Date of Service: 11/10/24 Vital Signs: Vital Signs Temp Pulse Resp BP Pulse Ox O2 Del Method 11/10/24 07:45 97.4 F 62 18 157/86 H 99 Room Air 11/10/24 04:00 97.0 F 65 18 152/77 H 95 Room Air 11/09/24 23:42 98.5 F 74 18 125/66 95 Room Air Anesthesia: General Endotracheal-GETA Mental Status: Awake Pain Control: Satisfactory Nausea/Vomiting: None Hydration: Adequate Anesthesia-Related Issues: No Anes. Related Issues
== END 2024-11-10 08:41 | disposition home or self-care (01) | DRG 403 ==
LOC: HO.SSSA 13:00 → HO.S3 13:25
PROVIDERS: Nurse Practitioner; Physician Assistant Surgical; Admitting Provider Surgery; PCP Internal Medicine; Visit Provider Surgery
PROC: 0DB64Z3 Excision of Stomach, Percutaneous Endoscopic Approach, Vertical (ICD-10-PCS; CPT 43845; principal; 2024-11-09 11:30)
DX: E66.01 Morbid (severe) obesity due to excess calories (principal); Q43.3 Congenital malformations of intestinal fixation; R16.2 Hepatomegaly with splenomegaly, not elsewhere classified; F41.9 Anxiety disorder, unspecified; G47.00 Insomnia, unspecified; Z68.36 Body mass index [BMI] 36.0-36.9, adult; Z79.899 Other long term (current) drug therapy
CPT/HCPCS: 36415; 80048; 80053; 80061; 81025; 83036; 83525; 84443; 85014; 85018; 85025; 85610; 85730; 86140; 86850; 86900; 86901; 88304; 88305; 88307; 88342; A4649; C9145; J0131; J0690; J1100; J1171; J1630; J1920; J2003; J2250; J2405; J2470; J2704; J2795; J3010; J7120

== ENCOUNTER → 2024-11-09 09:05 | Outpatient (BNV) | payer OTHER, SELFPAY | PROVIDERS: Admitting Provider Surgery; PCP Internal Medicine; Visit Provider Surgery | DX: E66.812 Obesity, class 2 (principal); E66.09 Other obesity due to excess calories; Z68.37 Body mass index [BMI] 37.0-37.9, adult; Z68.36 Body mass index [BMI] 36.0-36.9, adult; F32.A Depression, unspecified; F41.9 Anxiety disorder, unspecified; G47.00 Insomnia, unspecified | CPT/HCPCS: 43659; 43775; 99024; 99499 ==

== ENCOUNTER 2024-11-15 10:30 | Outpatient (AMB) | payer OTHER, SELFPAY ==
--- NOTE | 2024-11-15 10:30 | MHC.WMTHER ---
Intake Intake Visit Reasons: (TV) PO LSG 11/09/24 Allergies No Known Allergies Allergy (Verified 11/09/24 09:40) PFSH Medical History Obesity Pre-diabetes Insomnia Anxiety Depression Morbid obesity Surgical History History of esophagogastroduodenoscopy (EGD) History of delivery Hx of breast reduction, elective Social History Household Members: Family Housing: Apartment Are you a primary caregiver services home to a significant other at home: No Do you presently have visiting nurse or other home services: No Alcohol intake: current Alcohol intake frequency: a few times a month Alcohol type: wine Patient Tobacco Use Status: Never used Tobacco Behavioral Health Assessment Weight Management Therapy Therapy Notes Details Subjective: The patient underwent weight loss surgery on 11/09/2024. She reports a good recovery overall and states that her mood has been stable. However, she experienced increased hunger over the weekend and found it challenging to manage. She has already resumed her psychiatric medications. The patient is taking four weeks off work and plans to return during the first week of December. Objective: The patient is here for a post-operative visit. We discussed her current functioning and the challenges she is facing. A PHQ-9 was administered to assess her mood. We focused on developing coping skills for the initial post-operative phase, normalizing and validating her feelings. The importance of maintaining communication and adhering to post-operative instructions was emphasized. Available resources were provided to support her recovery. Assessment/Response: Mental status: WNL Risk reported/identified: None. No risk or concerns per PHQ-9 scores. Food/Weight/Diet Expectations of change Weight on surgery day 3: 231Lbs PO weight 11/15/24: 216Lbs PT's Target weight: 150Lbs. PT is implementing the following: Current meal plan: liquid diet. 3 shakes and rest water. Fluid goal is to 40oz daily. Exercise plan: none yet Scale: yes Communication w/ provider: yes. Questionnaires PHQ-9 Over the last 2 weeks, how often have you been bothered by any of the following problems? 1. Little interest or pleasure in doing things: not at all 2. Feeling down, depressed, or hopeless: several days 3. Trouble falling or staying asleep, or sleeping too much: not at all 4. Feeling tired or having little energy: not at all 5. Poor appetite or overeating: not at all 6. Feeling bad about yourself - or that you are a failure or have let yourself or your family down: several days 7. Trouble concentrating on things, such as reading the newspaper or watching television: not at all 8. Moving or speaking so slowly that other people could have noticed. Or the opposite - being so fidgety or restless that you have been moving around a lot more than usual: not at all 9. Thoughts that you would be better off or of hurting yourself in some way: not at all Total score: 2 Depression Screening Interpretation: Negative Depression Screening Done: Yes 21198 - PHQ-9 Billing: Yes Source: Developed by Drs. Nirmal Mae, Shonda Kumar, Pilo Larsen and colleagues, with an educational didier from [employer] Assessment & Plan Assessment & Plan (1) Anxiety: Code(s): F41.9 - Anxiety disorder, unspecified (2) Depression: Code(s): F32.A - Depression, unspecified Qualifiers: Depression Type: unspecified Qualified Code(s): F32.A - Depression, unspecified (3) Status post bariatric surgery: Code(s): Z98.84 - Bariatric surgery status Plan The patient reports feeling well and has declined further behavioral health support at this time. Recommended joining our Facebook support group for ongoing community support. Provided information on upcoming peer support groups specifically for post-operative patients. Follow-Up:?None. Telehealth Telehealth Telehealth Platform: [facility] Location of provider rendering services: other Location of patient: address on file Patient Identification confirmed using: Name, : Yes Telehealth method: voice only Patient verbally consented to treatment: Yes Patient verbally consented to billing insurance company: Yes Patient informed of any privacy concerns related to visit: Yes Minutes spent on Phone/Video with Pt.: 30 Coding Level of Care Code Established Pt Tele Psytx 30 mins (73001) Patient Type Established Diagnoses Anxiety F41.9 Depression, unspecified depression type F32.A Depression Type: unspecified Status post bariatric surgery Z98.84 Additional Codes PHQ-9 - 90631 - PHQ-9 Billing: Yes ([id number]) Time Spent (min) 30
--- OUTSIDE RECORDS SUMMARY | 2024-11-15 12:34 | XMS_ITS | Clinical Summary ---
Author Organization [address] [facility] Address [address] [place] [address] Phone Care Team Providers Care Alley Cleaner Name Role Phone Carlotta Wilkinson MD Primary Care Provider [phone] Allergies No known active allergies Medications hydrOXYzine [...] EDT Office Visit Obstetrics and Gynecology - [address] [phone] Yeimy Benson CNM Encounter for annual routine gynecological examination (Primary Dx); Encounter for surveillance of vaginal ring hormonal contraceptive device; Screening mammogram for breast cancer 09/09/2024 3:15 PM EDT Office Visit Adult [address] [phone] Edyta Marte PA Subacute sinusitis, unspecified location (Primary Dx); Pharyngitis, unspecified etiology 09/07/2024 Telephone Adult Medicine [address] [phone] Roxi Chan RN 09/06/2024 8:45 AM EDT Office Visit [address] [phone] Carlotta Wilkinson MD Prediabetes (Primary Dx); Anxiety and depression from Last 3 Months Immunizations Name Administration Dates Next Due HPV, Quadrivalent 11/01/2008,06/30/2008,04/28/20 08 Hepatitis B (Tqrtfqe-V-Vignl , Recombivax HB-Adult) 19yo and older 06/14/2020,01/07/2020,12/08/2019 [...] Livin g 8 9 denise braden Delivery Location:[facility] Comments:3 dy inductio n, FTP Last Filed [...] AM EDT Office Visit Adult Medicine [facility] [address] [place] [address] Carlotta Wilkinson MD [address] [place] [address] Health Maintenance Due Date Last Done Comments [...] LAB CHEMISTRY METHOD 09/06/2024 2:05 PM EDT [facility] Mean Bld Glu Estim. 126 mg/dL LAB CHEMISTRY METHOD 09/06/2024 2:05 PM EDT [facility] Blood Venous blood specimen / Unknown Venipuncture / Unknown 09/06/2024 9:11 AM EDT 09/06/2024 9:11 AM EDT Carlotta Wilkinson MD LAB BLOOD ORDERABLES Final Resul t [facility] [address] [place] [address], [place] [phone] * Cervical Cancer Screening: HPV (04/22/2021) Cervical Cancer Screening: HPV negative, abstracted Historical Provider HEALTH MAINTENANCE Final Result from Last 3 Months or Most Recently Relevant to Health Maintenance Insurance [employer] [facility] Care Teams Alley Cleaner Relationship Specialty Start Date End Date Carlotta Wilkinson MD [address] [place] [id number] PCP - General Internal Medicine 05/19/15
== END 2024-11-15 11:04 | disposition home or self-care (01) ==
LOC: HO.HBST 11:01
PROVIDERS: PCP Internal Medicine; Visit Provider Counselor Mental Health
DX: F32.1 Major depressive disorder, single episode, moderate (principal); F41.9 Anxiety disorder, unspecified; Z98.84 Bariatric surgery status
CPT/HCPCS: 90832

== ENCOUNTER → 2024-11-15 10:30 | Outpatient (BNVA) | payer OTHER, SELFPAY | PROVIDERS: PCP Internal Medicine; Visit Provider Counselor Mental Health ==

== ENCOUNTER 2024-11-18 09:51 | Outpatient (AMB) | payer OTHER, SELFPAY ==
--- NOTE | 2024-11-18 09:52 | MHC.OFFVISWM ---
VS Expanded 11/18/24 10:15 BP 125/66 Blood Pressure Location Rt brachial Blood Pressure Position Sitting Pulse 88 Pulse Source Pulse Oximeter Temp 96.9 F Temperature Source Temporal Artery Scan Pulse Oximetry 97 Oxygen Delivery Method Room Air Height 5 ft 6.5 in Weight 211 lb 12.8 oz BMI 33.7 Body Fat % 39.1 Body Fat Mass 82.6 Fat Free Mass 129.0 Visceral Fat Rating 8.0 Body Water % 129.0 Body Water Mass 8.0 Muscle Mass/Score 122.4 Basal Metabolic Rate/Score 1,783 Intake Visit Reasons: (OV) PO LSG 11/09/24 Allergies No Known Allergies Allergy (Verified 11/18/24 10:02) HPI Comments Details: Patient is a pleasant 39-year-old female who returns to the office today in follow-up. She is approximately 9 days post sleeve gastrectomy performed on 11/09/2024. She is tolerating her meal plan consisting of to fair life ready to drink shakes at 9-12 and 2-5. As well as 1 fair life ready to drink shake with 4 oz of shake and 4 oz of almond milk at6-8. She is tolerating a proximally 64-70 oz of fluids. [facility] Medical History Obesity Pre-diabetes Insomnia Anxiety Depression Morbid obesity Surgical History History of esophagogastroduodenoscopy (EGD) History of delivery Hx of breast reduction, elective Social History Household Members: Family Housing: Apartment Are you a primary child care coordinator to a significant other at home: No Do you presently have visiting nurse or other home services: No Alcohol intake: current Alcohol intake frequency: a few times a month Alcohol type: wine Patient Tobacco Use Status: Never used Tobacco Physical Exam GI Inspection: Yes incision (Clean, dry, intact.) Assessment & Plan Assessment & Plan (1) S/P laparoscopic sleeve gastrectomy: Code(s): Z98.84 - Bariatric surgery status Category: Surgical Plan: POD 9 s/p LSG on 11/09/[address] Jimenez Weight loss prior to surgery was 19.5 pounds or 7.7 % TBWL. Original weight on 04/09/2024 was 251.8 pounds and op weight was 232.3 pounds. Be sure to text Dr Jimenez exactly 1 week after surgery your weight from your home scale so he can adjust your meal plan. Continue meal plan until f/u nidia Herron in 2 weeks May shower, no submersion in bath for another week Continue abdominal binder with activity and exercise for the next 2 weeks. Exercise prior to surgery was treadmill and may resume No abdominal exercises for 6 weeks post operatively Will be emailed link to post op video for review Reminded of the pace of drinking, 2 mL per minute, 1 oz/15 min.
[2024-11-18 10:15] VITALS: BP 125/66; PULSE 88; TEMP 36.1; O2SAT 97; BMI 33.7
--- OUTSIDE RECORDS SUMMARY | 2024-11-18 10:59 | XMS_ITS | Clinical Summary ---
Author Organization 175 [facility] Address [address] [place] [address] Phone Care Team Providers Care Cooler Servicer Name Role Phone Carlotta Wilkinson MD Primary Care Provider Allergies No known active allergies Medications hydrOXYzine [...] EDT Office Visit Obstetrics and Gynecology - [address] [phone] Yeimy Benson CNM Encounter for annual routine gynecological examination (Primary Dx); Encounter for surveillance of vaginal ring hormonal contraceptive device; Screening mammogram for breast cancer 09/09/2024 3:15 PM EDT Office Visit Adult [address] [address] Edyta Marte PA Subacute sinusitis, unspecified location (Primary Dx); Pharyngitis, unspecified etiology 09/07/2024 Telephone Adult Medicine [address] [phone] Roxi Chan RN 09/06/2024 8:45 AM EDT Office Visit [address] [phone] Carlotta Wilkinson MD Prediabetes (Primary Dx); Anxiety and depression from Last 3 Months Immunizations Name Administration Dates Next Due HPV, Quadrivalent 11/01/2008,06/30/2008,04/28/20 08 Hepatitis B (Adtehyd-B-Phffy , Recombivax HB-Adult) 19yo and older 06/14/2020,01/07/2020,12/08/2019 [...] Livin g 8 9 denise braden Delivery Location:[facility] Comments:3 dy inductio n, FTP Last Filed [...] 9:00 AM EDT Office Visit Adult Medicine [facility] [address] [place] [address] Carlotta Wilkinson MD [address] [place] [address] Health Maintenance Due Date Last Done Comments [...] [facility] [address] [place] [address], [place] [phone] * Cervical Cancer Screening: HPV (04/22/2021) Cervical Cancer Screening: HPV negative, abstracted Historical Provider HEALTH MAINTENANCE Final Result from Last 3 Months or Most Recently Relevant to Health Maintenance Insurance [employer] [facility] Care Teams Cooler Servicer Relationship Specialty Start Date End Date Carlotta Wilkinson MD [address] [place] [id number] PCP - General Internal Medicine 05/19/15
== END 2024-11-18 10:36 | disposition home or self-care (01) ==
LOC: HO.HBS 09:51
PROVIDERS: PCP Internal Medicine; Visit Provider Physician Assistant Surgical
DX: Z98.84 Bariatric surgery status (principal)
CPT/HCPCS: 99024

== ENCOUNTER → 2024-11-24 08:19 | Outpatient (BNVA) | payer OTHER, SELFPAY | PROVIDERS: PCP Internal Medicine; Visit Provider Physician Assistant Surgical ==

== ENCOUNTER 2024-12-16 08:35 | Outpatient (AMB) | payer OTHER, SELFPAY ==
--- NOTE | 2024-12-16 08:37 | MHC.OFFVISWM ---
VS Expanded 12/16/24 08:53 BP 138/70 Blood Pressure Location Rt brachial Blood Pressure Position Sitting Pulse 68 Pulse Source Pulse Oximeter Temp 95.7 F L Temperature Source Temporal Artery Scan Pulse Oximetry 100 Oxygen Delivery Method Room Air Height 5 ft 6.5 in Weight 199 lb BMI 31.6 Body Fat % 36.0 Body Fat Mass 71.6 Fat Free Mass 127.2 Visceral Fat Rating 7.0 Body Water % 45.8 Body Water Mass 91.0 Muscle Mass/Score 120.8 Basal Metabolic Rate/Score 1,742 Intake Visit Reasons: (OV) PO LSG 11/09/24 Instrument Fitter Required: No Allergies No Known Allergies Allergy (Verified 12/16/24 08:46) Medication List - Last Reconciled 12/16/24 by FARSHAD Day citalopram 20 mg PO DAILY hydroxyzine HCl 50 mg PO TID PRN ondansetron 4 mg PO Q12H PRN pantoprazole 40 mg PO DAILY sucralfate 10 mL PO BID trazodone 50 mg PO BEDTIME HPI Comments Details: This?a?39?yo female who is s/p LSG without hiatal hernia repair on?11/09/2024. Presents for 1 month post op visit. Weight today is 199 pounds, with a BMI of 31.6. There has been a 52.8 pound weight loss,(initial weight 251.8 pounds) since starting the program on 04/09/2024 reflecting a 20.9 % total body weight loss and a weight loss of 33.3 pounds since surgery (operative weight 232.3 pounds) reflecting a 14.3 % TBWL since surgery. No complaints of nausea, emesis, abdominal pain or reflux. Reports infrequent but normal bowel movements every 2-3 days and uses stool softeners regularly. Present meal plan includes: 8-10 4 oz fairlife milk with 4 oz almond milk 11-1 fit crunch bar 2-4 another fairlife milk w almond milk 5 pm meal 3 forks protein and 3 forks veg 7-9 fit crunch bar drinking 50-60 oz daily ? Exercise routine includes: elliptical or treadmill 7 days per week, 300 jesse PFSH Medical History Obesity Pre-diabetes Insomnia Anxiety Depression Morbid obesity Surgical History History of esophagogastroduodenoscopy (EGD) History of delivery Hx of breast reduction, elective Social History Household Members: Family Housing: Apartment Are you a primary managed care nurse to a significant other at home: No Do you presently have visiting nurse or other home services: No Alcohol intake: current Alcohol intake frequency: a few times a month Alcohol type: wine Patient Tobacco Use Status: Never used Tobacco Physical Exam Const General: healthy appearing and no acute distress Resp Effort & Inspection: normal respiratory effort Auscultation: clear to auscultation bilaterally Cardio Rate: regular rate Rhythm: regular rhythm GI Auscultation: normal bowel sounds Extrem General: Yes normal to inspection Assessment & Plan Assessment & Plan (1) S/P laparoscopic sleeve gastrectomy: Code(s): Z98.84 - Bariatric surgery status Category: Surgical Plan: Patient is doing very well. She is following the meal plans exactly as given to her by Dr. Jimenez. She is exercising adequately. Discussed weight training which she has already begun doing with very light weights, 3 lb or 5 lb. I suggested doing weight training for about 15 minutes prior to her cardio. She may additionally due no weights squats, lunges. She will avoid doing abdominal work or core work until at least 6 weeks postoperative. We will have her return to the office in a proximally 1 month
--- OUTSIDE RECORDS SUMMARY | 2024-12-16 08:45 | XMS_ITS | Clinical Summary ---
Author Organization 175 [facility] Address [address] [place] [address] Phone Care Team Providers Care Cigar Packer Name Role Phone Carlotta Wilkinson MD Primary Care Provider [phone] Allergies No known active allergies Medications hydrOXYzine pamoate (VISTARIL) 25 mg capsule Take 1 capsule (25 mg total) by mouth 4 (four) times a day if needed for anxiety. 30 capsule 09/01/19 25 Active citalopram (CeleXA) 20 mg tablet Take 1 tablet (20 mg total) by mouth 1 (one) time each day. 90 each 1 09/07/19 25 Active traZODone (DESYREL) 50 mg tablet TAKE 1 TABLET BY MOUTH AT BEDTIME NEEDED FOR SLEEP. 90 tablet 1 09/29/19 25 Active etonogestreL-e thinyl estradioL (NUVARING) 0.12-0.015 mg/24 hr vaginal ring Insert vaginally and leave in place for 3 consecutive weeks, then remove for 1 week. 3 each 4 10/28/19 25 Active cetirizine (ZyrTEC) 10 mg tablet TAKE 1 TABLET BY MOUTH 1 TIME EACH DAY. 90 tablet 12/09/19 25 Active cetirizine (ZyrTEC) 10 mg tablet Take 1 tablet (10 mg total) by mouth 1 (one) time each day. 90 each 09/10/19 25 025 Discontinued Active Problems Problem Noted Date Diagnosed Date Severe obesity (BMI 35.0-39. 9) with comorbidity (CMS/HCC V24, [facility] V28) 03/26/2024 Prediabetes 03/27/2020 Major depressive disorder with single episode Anxiety and depression 12/05/2016 Leiomyoma of uterus 09/20/2009 Chronic back pain 06/23/2008 Encounters Date Type Department Care Team Description 10/27/2024 1:30 PM EDT Office Visit Obstetrics and Gynecology [address] [address] Kiki Benson CNM Encounter for annual routine gynecological examination (Primary Dx); Encounter for surveillance of vaginal ring hormonal contraceptive device; Screening mammogram for breast cancer from Last 3 Months Immunizations Name Administration Dates Next Due HPV, Quadrivalent 11/01/2008,06/30/2008,04/28/20 08 Hepatitis B (Xegnjdm-B-Ekved , Recombivax HB-Adult) 19yo and older 06/14/2020,01/07/2020,12/08/2019 [...] g Live Births 1 1 1 1 Date Outcome GA Total Labor Labor/2nd/3rd Weight Sex Type Anes PTL Manasa A1 A5 Name Clin 2013 Term M CS-LT ranv Livin g 8 9 denise Brooke ns Delivery Location:[facility] Comments:3 dy inductio n, FTP Last Filed Vital Signs Vital Sign Reading Time Taken Comments Blood Pressure 106/67 10/27/2024 1:33 PM EDT Pulse 70 10/27/2024 1:33 PM EDT Temperature 36.1 C (96.9 F) 09/09/2024 3:21 PM EDT Respiratory Rate 12 10/27/2024 1:33 PM EDT [...] 9:00 AM EDT Office Visit Adult Medicine [facility] [address] [place] [address] Carlotta Wilkinson MD [address] [place] [address] Health Maintenance Due Date Last Done Comments Cholesterol Screening (Lipid Panel) 05/18/2022 HIV Screening 05/18/2022 Hepatitis C Screening 05/18/2022 COVID-19 Vaccine ( season) 2024 05/17/2022, 06/14/2021, 10/09/2020, Additional history exists Influenza Vaccine (#1) 2025 , 05/17/2022, 03/22/2020, Additional history exists Social Influencers of Health Screening 09/05/2025 09/05/2024 Depression Screening 10/27/2025 10/27/2024 Cervical Cancer Screening: HPV 04/22/2026 04/22/2021 DTaP,Tdap,and Td Vaccines (3 - Td or Tdap) 02/10/2034 02/11/2024, 09/22/2013 HPV Vaccines Completed 11/01/2008, 06/10, 04/28/2008 MMR Vaccines Aged Out 11/09/2013 No longer eligi ble based on patient's age to complete this topic Hepatitis B Vaccines Completed 06/14/2020, 01/07/2020, 12/08/2019 HIB Vaccines Aged Out No longer eligi [...] 5 Years) and At-Risk Patients (6 to 49 Years) Aged Out No longer eligible based [...] Most Recently Relevant to Health Maintenance Insurance [facility] Care Teams Cigar Packer Relationship Specialty Start Date End Date Carlotta Wilkinson MD [address] [place] [id number] PCP - General Internal Medicine 05/19/15
[2024-12-16 08:53] VITALS: BP 138/70; PULSE 68; TEMP 35.4; O2SAT 100; BMI 31.6
== END 2024-12-16 09:04 | disposition home or self-care (01) ==
LOC: HO.HBS 08:35
PROVIDERS: PCP Internal Medicine; Visit Provider Physician Assistant Surgical
DX: Z98.84 Bariatric surgery status (principal)
CPT/HCPCS: 99024

== ENCOUNTER 2025-01-13 09:40 | Outpatient (AMB) | payer OTHER, SELFPAY ==
--- NOTE | 2025-01-13 08:24 | A.OFFVIS_ITS ---
VS Expanded 01/13/25 08:25 Height 5 ft 6.5 in Weight 190 lb 8 oz BMI 30.3 Body Fat % 37.7 Fat Free Mass 119 Visceral Fat Rating 13 Body Water % 42.8 Muscle Mass/Score 112 Basal Metabolic Rate/Score 1,536 Intake Visit Reasons: TV PO LSG 11/09/24 Form Building Supervisor Required: No Allergies No Known Allergies Allergy (Verified 12/16/24 08:46) Medication List - Last Reconciled 01/13/25 by FARSHAD Day citalopram 20 mg PO DAILY hydroxyzine HCl 50 mg PO TID PRN pantoprazole 40 mg PO DAILY sucralfate 10 mL PO BID trazodone 50 mg PO BEDTIME HPI Comments Details: This?a?39?yo female who is s/p LSG without hiatal hernia repair on?11/09/2024. Presents for 2 month post op visit. Weight today is 190.8 pounds, with a BMI of 31.3. There has been a 61 pound weight loss,(initial weight 251.8 pounds) since starting the program on 04/09/2024 reflecting a 24.2 % total body weight loss and a weight loss of 41.5 pounds since surgery (operative weight 232.3 pounds) reflecting a 17.8 % TBWL since surgery. No complaints of nausea, emesis, abdominal pain or reflux. Reports infrequent but normal bowel movements every 2- 3 days and uses stool softeners regularly. States she feels great, not lightheaded. Following all instructions. Present meal plan includes: 8-10 4 oz fairlife milk with 4 oz almond milk 11-1 fit crunch bar 2-4 another fairlife milk w almond milk 5 pm meal 3 forks protein and 3 forks veg 7-9 fit crunch bar drinking 40-60 oz daily ? Exercise routine includes: elliptical or treadmill 7 days per week, 300-350 calories [facility] Medical History Obesity Pre-diabetes Insomnia Anxiety Depression Morbid obesity Surgical History History of esophagogastroduodenoscopy (EGD) History of delivery Hx of breast reduction, elective Social History (Reviewed 12/16/24 @ 08:55 by EVERARDO Izaguirre Household Members: Family Housing: Apartment Are you a primary patient care representative to a significant other at home: No Do you presently have visiting nurse or other home services: No Alcohol intake: current Alcohol intake frequency: a few times a month Alcohol type: wine Patient Tobacco Use Status: Never used Tobacco Physical Exam Vital Signs: BMI result Body Mass Index 30.3 Telehealth Telehealth Telehealth Platform: Telephone Location of provider rendering services: practice address Location of patient: address on file Patient Identification confirmed using: Name, : Yes Telehealth method: voice only Patient verbally consented to treatment: Yes Patient verbally consented to billing insurance company: Yes Patient informed of any privacy concerns related to visit: Yes Minutes spent on Phone/Video with Pt.: 15 Assessment & Plan Assessment & Plan (1) S/P laparoscopic sleeve gastrectomy: Code(s): Z98.84 - Bariatric surgery status Category: Surgical Plan: Patient is feeling very well. Following all instructions from Dr. Jimenez Following meal plan Exercising regularly and adequately Return to clinic 1 month
[2025-01-13 08:25] VITALS: BMI 30.3
--- OUTSIDE RECORDS SUMMARY | 2025-01-13 10:05 | XMS_ITS | Clinical Summary ---
Author Organization 175 [facility] Address [address] [place] [address] Phone Care Team Providers Care General Road Foreman Name Role Phone Carlotta Wilkinson MD Primary Care Provider [phone] Allergies No known active allergies Medications citalopram (CeleXA) 20 mg tablet Take 1 [...] EACH DAY. 90 tablet 12/09/19 25 Active hydrOXYzine pamoate (VISTARIL) 25 mg capsule TAKE 1 CAPSULE (25 MG TOTAL) BY MOUTH 4 (FOUR) TIMES A DAY IF NEEDED FOR ANXIETY. 30 capsule 5 12/29/19 25 Active hydrOXYzine pamoate (VISTARIL) 25 mg capsule Take 1 capsule (25 mg total) by mouth 4 (four) times a day if needed for anxiety. 30 capsule 09/01/19 25 025 Discontinued Active Problems Problem Noted Date Diagnosed Date Severe obesity (BMI 35.0-39. 9) with comorbidity (CMS/HCC V24, CMS/HCC V28) 03/26/2024 Prediabetes 03/27/2020 Major depressive disorder with single episode Anxiety and depression 12/05/2016 Leiomyoma of uterus 09/20/2009 Chronic back pain 06/23/2008 Encounters Date Type Department Care Team Description 12/22/2024 9:00 AM EDT Office Visit [place] [facility] [place] [facility] [address] [phone] Carlotta Wilkinson MD Routine general medical examination at a health care facility (Primary Dx); Prediabetes; Anxiety and depression; Screening, lipid; Encounter for screening mammogram for malignant neoplasm of breast 10/27/2024 1:30 PM EDT Office Visit Obstetrics and Gynecology - [address] [address] Kiki Benson CNM Encounter for annual routine gynecological examination (Primary Dx); Encounter for surveillance of vaginal ring hormonal contraceptive device; Screening mammogram for breast cancer from Last 3 Months Immunizations Name Administration Dates Next Due HPV, Quadrivalent 11/01/2008,06/30/2008,04/28/20 08 Hepatitis B (Yfoozde-G-Uohqk , Recombivax HB-Adult) 19yo and older 06/14/2020,01/07/2020,12/08/2019 [...] Livin g 8 9 denise braden Delivery Location:[facility] Comments:3 dy inductio n, FTP Last Filed Vital Signs Vital Sign Reading Time Taken Comments Blood Pressure 110/64 12/22/2024 9:00 AM EDT Pulse 71 12/22/2024 9:00 AM EDT Temperature 35.8 C (96.4 F) 12/22/2024 9:00 AM EDT Respiratory Rate 16 12/22/2024 9:00 AM EDT Oxygen Saturation 99% 12/22/2024 9:00 AM EDT Inhaled Oxygen Concentration - - Weight 89.9 kg (198 lb 3.2 oz) 12/22/2024 9:00 A M EDT Height 167.6 cm (5' 6 ) 12/22/2024 9:00 AM EDT Body Mass Index 31.99 12/22/2024 9:00 AM EDT Plan of Treatment Upcoming Encounters Date Type Department Care Team (Late st Contact Info) Description 06/24/2025 8:30 AM EST Office Visit Adult Medicine [facility] [address] [place] [address] Edyta Marte PA [address] [place] [address] Health Maintenance Due Date Last Done Comments HIV Screening 05/18/2022 Hepatitis C Screening 05/18/2022 COVID-19 Vaccine ( season) 2024 05/17/2022, 06/14/2021, 10/09/2020, Additional history exists Influenza Vaccine (#1) 2025 , 05/17/2022, 03/22/2020, Additional history exists Social Influencers of Health Screening 09/05/2025 09/05/2024 Cervical Cancer Screening: HPV 04/22/2026 04/22/2021 Cholesterol Screening (Lipid Panel) 12/22/2029 12/22/2024 DTaP,Tdap,and Td Vaccines (3 - Td or Tdap) 02/10/2034 02/11/2024, 09/22/2013 HPV Vaccines Completed 11/01/2008, 06/10, 04/28/2008 MMR Vaccines Aged Out 11/09/2013 No longer eligi ble based on patient's age to complete this topic Hepatitis B Vaccines Completed 06/14/2020, 01/07/2020, 12/08/2019 Depression Screening Completed 10/27/2024 HIB Vaccines Aged Out No longer eligi [...] Procedure Name Priority Date/Time Associated Diagnosis Comments CBC WITH AUTO DIFFERENTIAL Routine 12/22/2024 9:30 AM EDT Routine general medical examination at a health care facility HEMOGLOBIN A1C Routine 12/22/2024 9:30 AM EDT Prediabetes BASIC METABOLIC PANEL Routine 12/22/2024 9:30 AM EDT Routine general medical examination at a health care facility LIPID PANEL WITH REFLEX TO DIRECT LDL Routine 12/22/2024 9:30 AM EDT Screening, lipid CBC AND DIFFERENTIAL Routine 12/22/2024 9:30 AM EDT Routine general medical examination at a health care facility HM HPV Routine 04/22/2021 from Last 3 Months or Most Recently Relevant to Health Maintenance Results * Lipid panel with reflex to direct LDL (12/22/2024 9:30 AM EDT) Cholesterol 141 0 - 200 mg/dL LAB CHEMISTRY METHOD 12/22/2024 3:25 PM EDT [facility] Triglycerides 81 0 - 150 mg/dL LAB CHEMISTRY METHOD 12/22/2024 3:25 PM EDT [facility] HDL 58 >=40 mg/dL LAB CHEMISTRY METHOD 12/22/2024 3:25 PM EDT [facility] LDL Calculated 67 0 - 100 mg/dL LAB CHEMISTRY METHOD 12/22/2024 3:25 PM EDT [facility] VLDL Cholesterol Shakeel 16.2 mg/dL LAB CHEMISTRY METHOD 12/22/2024 3:25 PM EDT [facility] Non HDL Chol. (LDL+VLDL) 83 <145 mg/dL LAB CHEMISTRY METHOD 12/22/2024 3:25 PM EDT [facility] Chol/HDL Ratio 2.4 0.0 - 4.4 LAB CHEMISTRY METHOD 12/22/2024 3:25 PM EDT [facility] Blood Venous blood specimen / Unknown Venipuncture / Unknown 12/22/2024 9:30 AM EDT 12/22/2024 9:30 AM EDT us Carlotta Wilkinson MD LAB BLOOD ORDERABLES Final Resul t [facility] [address] [place] [address], [place] [phone] * (ABNORMAL) CBC auto differential (12/22/2024 9:30 AM EDT) Pathologist [facility] WBC 6.1 4.8 - 10.8 K/mcL LAB HEMETOLOGY METHOD 12/22/2024 12:55 PM EDT [facility] RBC 4.20 3.80 - 4.80 M/mcL LAB HEMETOLOGY METHOD 12/22/2024 12:55 PM EDT [facility] Hemoglobin 11.5 11.5 - 16.0 g/dL LAB HEMETOLOGY METHOD 12/22/2024 12:55 PM EDT [facility] Hematocrit 36.8 35.0 - 47.0 % LAB HEMETOLOGY METHOD 12/22/2024 12:55 PM EDT [facility] MCV 87.6 79.0 - 98.0 FL LAB HEMETOLOGY METHOD 12/22/2024 12:55 PM EDT [facility] MCH 27.4 27.0 - 32.0 pcg LAB HEMETOLOGY METHOD 12/22/2024 12:55 PM EDT [facility] MCHC 31.3(L) 32.0 - 37.0 g/dL LAB HEMETOLOGY METHOD 12/22[facility]24 [facility] RDW 13.7 11.0 - 15.0 % LAB HEMETOLOGY METHOD 12/22/2024 12:55 PM EDT [facility] Platelets 228 130 - 400 K/mcL LAB HEMETOLOGY METHOD 12/22[facility]2024 [facility] MPV 12.0(H) 7.0 - 11.0 FL LAB HEMETOLOGY METHOD 12/22/2024 12:[facility] NRBC 0.0 <1.0 % LAB HEMETOLOGY METHOD 12/22/2024 12:55 PM EDT [facility] NRBC Absolute 0.00 <0.10 K/mcL LAB HEMETOLOGY METHOD 12/22/2024 12:55 PM EDT [facility] Neutrophils Relative 54.7 % LAB HEMETOLOGY METHOD 12/22/2024 12:[facility] Lymphocytes Relative 36.0 % LAB HEMETOLOGY METHOD 12/22/2024 12:[facility] Monocytes Relative 8.5 % LAB HEMETOLOGY METHOD 12/22/2024 12:55 PM EDT [facility] Eosinophils Relative 0.3 % LAB HEMETOLOGY METHOD 12/22/2024 12:55 PM EDT [facility] Basophils Relative 0.3 % LAB HEMETOLOGY METHOD 12/22/2024 12:55 PM EDT [facility] Immature Granulocytes Relative 0.2 % LAB HEMETOLOGY METHOD 12/22/2024 12:55 PM EDT [facility] Neutrophils Absolute 3.34 1.50 - 7.00 K/mcL LAB HEMETOLOGY METHOD 12/22/2024 12:55 PM EDT [facility] Lymphocytes Absolute 2.20 1.00 - 5.00 K/mcL LAB HEMETOLOGY METHOD 12/22/2024 12:55 PM EDT [facility] Monocytes Absolute 0.52 0.20 - 1.00 K/mcL LAB HEMETOLOGY METHOD 12/22/2024 12:55 PM EDT [facility] Eosinophils Absolute 0.02 0.00 - 0.50 K/mcL LAB HEMETOLOGY METHOD 12/22/2024 12:55 PM EDT [facility] Basophils Absolute 0.02 0.00 - 0.20 K/mcL LAB HEMETOLOGY METHOD 12/22/2024 12:55 PM EDT [facility] Immature Granulocytes Absolute 0.01 0.00 - 0.03 K/mcL LAB HEMETOLOGY METHOD 12/22/2024 12:55 PM EDT [facility] Blood Venous blood specimen / Unknown Venipuncture / Unknown 12/22/2024 9:30 AM EDT 12/22/2024 9:30 AM EDT us Carlotta Wilkinson MD LAB BLOOD ORDERABLES Final Resul t [facility] [address] [place] [address], [place] [phone] * Hemoglobin A1c (12/22/2024 9:30 AM EDT) [facility] Hemoglobin A1C 5.7 <6.5 % LAB CHEMISTRY METHOD 12/22/2024 5:12 PM EDT [facility] Mean Bld Glu Estim. 117 mg/dL LAB CHEMISTRY METHOD 12/22/2024 5:12 PM EDT [facility] Blood Venous blood specimen / Unknown Venipuncture / Unknown 12/22/2024 9:30 AM EDT 12/22/2024 9:30 AM EDT Carlotta Wilkinson MD LAB BLOOD ORDERABLES Final Resul t [facility] [address] [place] [address], [place] [phone] * Basic metabolic panel (12/22/2024 9:30 AM EDT) [facility] Sodium 137 133 - 145 mmol/L LAB CHEMISTRY METHOD 12/22/2024 3:25 PM T [facility] Potassium 4.1 3.5 - 5.5 mmol/L LAB CHEMISTRY METHOD 12/22/2024 3:25 PM EDT [facility] Chloride 105 96 - 110 mmol/L LAB CHEMISTRY METHOD 12/22/2024 3:25 PM T [facility] CO2 24 21 - 32 mmol/L LAB CHEMISTRY METHOD 12/22[facility]2024 [facility] Anion Gap 8 3 - 11 LAB CHEMISTRY METHOD 12/22/2024 3:25 PM [facility] Glucose 78 70 - 100 mg/dL LAB CHEMISTRY METHOD 12/22/2024 3:25 PM [facility] BUN 8 5 - 25 mg/dL LAB CHEMISTRY METHOD 12/22/2024 3:25 PM EDT [facility] Creatinine 0.64 0.50 - 1.10 mg/dL LAB CHEMISTRY METHOD 12/22/2024 3:25 PM EDT [facility] eGFR 115 >=60 mL/min/1. 73m2 LAB CHEMISTRY METHOD 12/22/2024 3:25 PM EDT [facility] Comment:Calculation based on the Chronic Kidney Disease Epidemiology Collaboration (CKD-EPI) equation refit without adjustment for race. BUN/Creatinine Ratio 12.5 LAB CHEMISTRY METHOD 12/22/2024 3:25 PM EDT [facility] Calcium 9.0 8.5 - 10.5 mg/dL LAB CHEMISTRY METHOD 12/22/2024 3:25 PM EDT [facility] Blood Venous blood specimen / Unknown Venipuncture / Unknown 12/22/2024 9:30 AM EDT 12/22/2024 9:30 AM EDT Carlotta Wilkinson MD LAB BLOOD ORDERABLES Final Resul t [facility] [address] [place] [address], [place] [phone] * Cervical Cancer Screening: HPV (04/22/2021) Pathologist [facility] Cervical Cancer Screening: HPV negative, abstracted Historical Provider HEALTH MAINTENANCE Final Result from Last 3 Months or Most Recently Relevant to Health Maintenance Insurance [employer] [facility] Care Teams General Road Foreman Relationship Specialty Start Date End Date Carlotta Wilkinson MD [address] [place] [address] PCP - General Internal Medicine 05/19/15
--- OUTSIDE RECORDS SUMMARY | 2025-01-13 10:05 | XMS_ITS ---
Author Name [facility] Organization Unknown Care Team Organization Name Specialty Phone Email Start Date End Da te [facility] Carlotta Wilkinson Primary Care 04/16/2022 4
== END 2025-01-13 09:41 | disposition home or self-care (01) ==
LOC: HO.HBS 09:40
PROVIDERS: PCP Internal Medicine; Visit Provider Physician Assistant Surgical
DX: Z98.84 Bariatric surgery status (principal)
CPT/HCPCS: 99024

== ENCOUNTER 2025-02-10 08:30 | Outpatient (AMB) | payer OTHER, SELFPAY ==
[2025-02-10 07:56] VITALS: BMI 28.8
--- NOTE | 2025-02-10 07:56 | MHC.OFFVISWM ---
VS Expanded 02/10/25 07:56 Height 5 ft 6.5 in Weight 181 lb 4 oz BMI 28.8 Body Fat % 35.3 Fat Free Mass 117.2 Visceral Fat Rating 11 Body Water % 44.4 Muscle Mass/Score 110.4 Basal Metabolic Rate/Score 1,520 Intake Visit Reasons: TV PO LSG 11/09/24 Business Office Representative Required: No Allergies No Known Allergies Allergy (Verified 12/16/24 08:46) Medication List - Last Reconciled 02/10/25 by FARSHAD Day citalopram 20 mg PO DAILY hydroxyzine HCl 50 mg PO TID PRN trazodone 50 mg PO BEDTIME HPI Comments Details: This?a?39?yo female who is s/p LSG without hiatal hernia repair on?11/09/2024. Presents for 3 month post op visit. Weight today is 181.4 pounds, with a BMI of 28.8. There has been a 70.4 pound weight loss,(initial weight 251.8 pounds) since starting the program on 04/09/2024 reflecting a 27.9 % total body weight loss and a weight loss of 50.9 pounds since surgery (operative weight 232.3 pounds) reflecting a 21.9 % TBWL since surgery. No complaints of nausea, emesis, abdominal pain or reflux. Reports infrequent but normal bowel movements every 2-3 days and uses stool softeners regularly. States she feels great, not lightheaded. Following all instructions. No heartburn. Present meal plan includes: 8-10 4 oz fairlife milk with 4 oz almond milk 11-1 fit crunch bar 2-4 another fairlife milk w almond milk 5 pm meal 3 forks protein and 3 forks veg 7-9 fit crunch bar drinking 40-60 oz daily ? Exercise routine includes: elliptical 7 days per week, then walking outside 300-350 calories [facility] Medical History BMI 36.0-36.9,adult URI, acute Abnormal EKG Obesity Pre-diabetes Insomnia Anxiety Depression Morbid obesity Surgical History History of esophagogastroduodenoscopy (EGD) History of delivery Hx of breast reduction, elective Social History Household Members: Family Housing: Apartment Are you a primary pediatric acute care unit nurse to a significant other at home: No Do you presently have visiting nurse or other home services: No Alcohol intake: current Alcohol intake frequency: a few times a month Alcohol type: wine Patient Tobacco Use Status: Never used Tobacco Telehealth Telehealth Telehealth Platform: Telephone Location of provider rendering services: practice address Location of patient: address on file Patient Identification confirmed using: Name, : Yes Telehealth method: voice only Patient verbally consented to treatment: Yes Patient verbally consented to billing insurance company: Yes Patient informed of any privacy concerns related to visit: Yes Minutes spent on Phone/Video with Pt.: 15 Assessment & Plan Assessment & Plan (1) S/P laparoscopic sleeve gastrectomy: Code(s): Z98.84 - Bariatric surgery status Category: Surgical Plan: Patient is doing very well. She is communicating with Dr. Jimenez. She has made excellent progress. She is following the meal plan and exercising regularly. She feels great and has no complaints at today's visit. She will continue as such and follow-up in the office as scheduled.
--- OUTSIDE RECORDS SUMMARY | 2025-02-10 09:06 | XMS_ITS | Clinical Summary ---
Author Organization [facility] Address [address] [place] [address] Phone Care Team Providers Care Equipment Oiler Name Role Phone Carlotta Wilkinson MD Primary Care Provider [phone] Allergies No known active allergies Medications citalopram (CeleXA) 20 mg tablet Take 1 tablet (20 mg total) by mouth 1 (one) time each day. 90 each 1 5 Active traZODone (DESYREL) 50 mg tablet TAKE 1 TABLET BY MOUTH AT BEDTIME NEEDED FOR SLEEP. 90 tablet 1 5 Active etonogestreL-et hinyl estradioL (NUVARING) 0.12-0.015 mg/24 hr vaginal ring Insert vaginally and leave in place for 3 consecutive weeks, then remove for 1 week. 3 each 4 5 Active cetirizine (ZyrTEC) 10 mg tablet TAKE 1 TABLET BY MOUTH 1 TIME EACH DAY. 90 tablet 5 Active hydrOXYzine pamoate (VISTARIL) 25 mg capsule TAKE 1 CAPSULE (25 MG TOTAL) BY MOUTH 4 (FOUR) TIMES A DAY IF NEEDED FOR ANXIETY. 30 capsule 5 5 Active Active Problems Problem Noted Date Diagnosed Date Severe obesity (BMI 35.0-39. 9) with comorbidity (CMS/HCC V24, CMS/HCC V28) 03/26/2024 Prediabetes 03/27/2020 Major depressive disorder with single episode Anxiety and depression 12/05/2016 Leiomyoma of uterus 09/20/2009 Chronic back pain 06/23/2008 Encounters Date Type Department Care Team Description 12/22/2024 9:00 AM EDT Office Visit Adult Medicine [address] [phone] Carlotta Wilkinson MD Routine general medical examination at a health care facility (Primary Dx); Prediabetes; Anxiety and depression; Screening, lipid; Encounter for screening mammogram for malignant neoplasm of breast from Last 3 Months Immunizations Name Administration Dates Next Due HPV, Quadrivalent 11/01/2008,06/30/2008,04/28/20 08 Hepatitis B (Mnglgcq-C-Dauqh , Recombivax HB-Adult) 19yo and older 06/14/2020,01/07/2020,12/08/2019 [...] Livin g 8 9 denise braden Delivery Location:[facility] Comments:3 dy inductio n, FTP Last [...] Care Team (Late st Contact Info) Description 04/06/2025 7:30 AM EDT [facility]ointment [facility] [address] [place] [address] 06/24/2025 8:30 AM EST Office Visit Adult Medicine [facility] [address] [place] [id number] Edyta Marte PA [address] [place] [address] Health Maintenance Due Date Last Done Comments HIV Screening 05/18/2022 Hepatitis C Screening 05/18/2022 COVID-19 Vaccine ( season) 2025 05/17/2022, 06/14/2021, 10/09/2020, Additional history exists Influenza [...] EDT Routine general medical examination at a [facility] care facility HEMOGLOBIN A1C Routine 12/22/2024 9:30 AM EDT Prediabetes BASIC METABOLIC PANEL Routine 12/22/2024 9:30 AM EDT Routine general medical examination at a [facility] care facility LIPID PANEL WITH REFLEX TO [...] LAB CHEMISTRY METHOD 12/22/2024 3:25 PM EDT [facility] Triglycerides 81 0 - 150 mg/dL LAB CHEMISTRY METHOD 12/22/2024 3:25 PM EDT [facility] HDL 58 >=40 mg/dL LAB CHEMISTRY METHOD 12/22/2024 3:25 PM EDT [facility] LDL Calculated 67 0 - 100 mg/dL LAB CHEMISTRY METHOD 12/22/2024 3:25 PM EDT [facility] VLDL Cholesterol Shakeel 16.2 mg/dL LAB CHEMISTRY METHOD 12/22/2024 3:25 PM EDT [facility] Non HDL Chol. (LDL+VLDL) 83 <145 mg/dL LAB CHEMISTRY METHOD 12/22/2024 3:25 PM EDT [facility] Chol/HDL Ratio 2.4 0.0 - 4.4 LAB CHEMISTRY METHOD 12/22/2024 3:25 PM EDT [facility] Blood Venous blood specimen / Unknown Venipuncture / Unknown 12/22/2024 9:30 AM EDT 12/22/2024 9:30 AM EDT us Carlotta Wilkinson MD LAB BLOOD ORDERABLES Final Resul t [facility] [address] [place] [address], * (ABNORMAL) CBC auto differential (12/22/2024 9:30 AM EDT) WBC 6.1 4.8 - 10.8 K/mcL LAB HEMETOLOGY METHOD 12/22/2024 12:55 PM EDT [facility] RBC 4.20 3.80 - 4.80 M/mcL LAB HEMETOLOGY METHOD 12/22/2024 12:55 PM EDT [facility] Hemoglobin 11.5 11.5 - 16.0 g/dL LAB HEMETOLOGY METHOD 12/22/2024 12:55 PM EDT [facility] Hematocrit 36.8 35.0 - 47.0 % LAB HEMETOLOGY METHOD 12/22/2024 12:55 PM EDT [facility] MCV 87.6 79.0 - 98.0 FL LAB HEMETOLOGY METHOD 12/22/2024 12:55 PM EDT [facility] MCH 27.4 27.0 - 32.0 pcg LAB HEMETOLOGY [facility] M[facility]C 31.3(L) 32.0 - 37.0 g/dL LAB HEMETOLOGY METHOD 12/22/2024 12:55 PM EDT [facility] RDW 13.7 11.0 - 15.0 % LAB HEMETOLOGY METHOD 12/22/2024 12:55 PM EDT [facility] Platelets 228 130 - 400 K/mcL LAB HEMETOLOGY METHOD 12/22[facility]2024 [facility] MPV 12.0(H) 7.0 - 11.0 FL LAB HEMETOLOGY METHOD 12/22/2024 12:55 PM EDT [facility] NRBC 0.0 <1.0 % LAB HEMETOLOGY METHOD 12/22[facility]2024 [facility] NRBC Absolute 0.00 <0.10 K/mcL LAB HEMETOLOGY METHOD 12/22[facility]2024 [facility] Neutrophils Relative 54.7 % LAB HEMETOLOGY METHOD 12/22/2024 12:55 PM EDT [facility] Lymphocytes Relative 36.0 % LAB HEMETOLOGY METHOD 12/22/2024 12:55 PM EDT [facility] Monocytes Relative 8.5 % LAB HEMETOLOGY METHOD 12/22/2024 12:55 PM EDT [facility] Eosinophils Relative 0.3 % LAB HEMETOLOGY METHOD 12/22/2024 12:55 PM EDT [facility] Basophils Relative 0.3 % LAB HEMETOLOGY METHOD 12/22/2024 12:55 PM EDT [facility] Immature Granulocytes Relative 0.2 % LAB HEMETOLOGY METHOD 12/22/2024 12:55 PM EDT [facility] Neutrophils Absolute 3.34 1.50 - 7.00 K/mcL LAB HEMETOLOGY METHOD 12/22/2024 12:55 PM EDT [facility] Lymphocytes Absolute 2.20 1.00 - 5.00 K/mcL LAB HEMETOLOGY METHOD 12/22/2024 12:55 PM EDT [facility] Monocytes Absolute 0.52 0.20 - 1.00 K/mcL LAB HEMETOLOGY METHOD 12/22/2024 12:55 PM EDT [facility] Eosinophils Absolute 0.02 0.00 - 0.50 K/mcL LAB HEMETOLOGY METHOD 12/22/2024 12:55 PM EDT [facility] Basophils Absolute 0.02 0.00 - 0.20 K/mcL LAB HEMETOLOGY METHOD 12/22/2024 12:55 PM EDT [facility] Immature Granulocytes Absolute 0.01 0.00 - 0.03 K/mcL LAB HEMETOLOGY METHOD 12/22/2024 12:55 PM EDT [facility] Blood Venous blood specimen / Unknown Venipuncture / Unknown 12/22/2024 9:30 AM EDT 12/22/2024 9:30 AM EDT us Carlotta Wilkinson MD LAB BLOOD ORDERABLES Final Resul t [facility] [address] [place] [address], * Hemoglobin A1c (12/22/2024 9:30 AM EDT) Hemoglobin A1C 5.7 <6.5 % LAB CHEMISTRY METHOD 12/22/2024 5:12 PM EDT [facility] Mean Bld Glu Estim. 117 mg/dL LAB CHEMISTRY METHOD 12/22/2024 5:12 PM EDT [facility] Blood Venous blood specimen / Unknown Venipuncture / Unknown 12/22/2024 9:30 AM EDT 12/22/2024 9:30 AM EDT us Carlotta Wilkinson MD LAB BLOOD ORDERABLES Final Resul t [facility] [address] [place] [address], [place] [phone] * Basic metabolic panel (12/22/2024 9:30 AM EDT) Sodium 137 133 - 145 mmol/L LAB CHEMISTRY METHOD 12/22/2024 3:25 PM [facility] Potassium 4.1 3.5 - 5.5 mmol/L LAB CHEMISTRY METHOD 12/22/2024 3:25 PM [facility] Chloride 105 96 - 110 mmol/L LAB CHEMISTRY METHOD 12/22/2024 3:25 PM [facility] CO2 24 21 - 32 mmol/L LAB CHEMISTRY METHOD 12/22/2024 3:25 PM [facility] Anion Gap 8 3 - 11 LAB CHEMISTRY METHOD 12/22/2024 3:25 PM [facility] Glucose 78 70 - 100 mg/dL LAB CHEMISTRY METHOD 12/22/2024 3:25 PM [facility] BUN 8 5 - 25 mg/dL LAB CHEMISTRY METHOD 12/22/2024 3:25 PM [facility] Creatinine 0.64 0.50 - 1.10 mg/dL LAB CHEMISTRY METHOD 12/22/2024 3:25 PM [facility] eGFR 115 >=60 mL/min/1. 73m2 LAB CHEMISTRY METHOD 12/22/2024 3:25 PM EDT [facility] Comment:Calculation based on the Chronic Kidney Disease Epidemiology Collaboration (CKD-EPI) equation refit without adjustment for race. BUN/Creatinine Ratio 12.5 LAB CHEMISTRY METHOD 12/22/2024 3:25 PM EDT [facility] Calcium 9.0 8.5 - 10.5 mg/dL LAB CHEMISTRY METHOD 12/22/2024 3:25 PM EDT [facility] Blood Venous blood specimen / Unknown Venipuncture / Unknown 12/22/2024 9:30 AM EDT 12/22/2024 9:30 AM EDT Carlotta Wilkinson MD LAB BLOOD ORDERABLES Final Resul t [facility] [address] [place] [address], * Cervical Cancer Screening: HPV (04/22/2021) Pathologist [facility] Cervical Cancer Screening: HPV negative, abstracted Historical Provider HEALTH MAINTENANCE Final Result from Last 3 Months or Most Recently Relevant to Health Maintenance Insurance [facility] Care Teams Equipment Oiler Relationship Specialty Start Date End Date Carlotta Wilkinson MD [address], [place] PCP - General Internal Medicine 05/19/15
== END 2025-02-10 08:50 | disposition home or self-care (01) ==
LOC: HO.HBS 08:35
PROVIDERS: PCP Internal Medicine; Visit Provider Physician Assistant Surgical
DX: E66.3 Overweight (principal); Z68.28 Body mass index [BMI] 28.0-28.9, adult; Z90.3 Acquired absence of stomach [part of]; Z98.84 Bariatric surgery status
CPT/HCPCS: 98967

== ENCOUNTER 2025-05-02 12:57 | Outpatient (AMB) | payer OTHER, SELFPAY ==
--- NOTE | 2025-05-02 12:57 | A.OFFVIS_ITS ---
VS Expanded 05/02/25 13:16 BP 125/68 Blood Pressure Location Rt brachial Blood Pressure Position Sitting Pulse 63 Pulse Source Pulse Oximeter Temp 97.6 F Temperature Source Temporal Artery Scan Pulse Oximetry 98 Oxygen Delivery Method Room Air Height 5 ft 6.5 in Weight 183 lb 6.4 oz BMI 29.2 Body Fat % 29.5 Body Fat Mass 54.0 Fat Free Mass 129.2 Visceral Fat Rating 5.0 Body Water % 50.4 Body Water Mass 92.4 Muscle Mass/Score 122.6 Basal Metabolic Rate/Score 1,736 Intake Visit Reasons: OV PO LSG 11/09/24 Allergies No Known Allergies Allergy (Verified 05/02/25 13:13) Medication List - Last Reconciled 05/02/25 by FARSHAD Rodriguez citalopram 20 mg PO DAILY hydroxyzine HCl 50 mg PO TID PRN trazodone 50 mg PO BEDTIME HPI Comments Details: This a 39 yo female who is s/p LSG without hiatal hernia repair on 11/09/2024. Presents for 5 month post op visit. Weight today is 181.4 pounds, with a BMI of 28.8. Initial weight 251.8 pounds starting the program on 04/09/2024 and operative weight 232.3 pounds. No complaints of nausea, emesis, abdominal pain or reflux. Reports infrequent but normal bowel movements every 2-3 days and uses stool softeners regularly. Having some lightheadedness. With movement, standing up, moving her head around. Following all instructions. No heartburn. She notes difficulty with sweets recently, getting all protein in. Present meal plan includes: 8-10 4 oz fairlife milk with 4 oz almond milk 11-1 fit crunch bar 2-4 another fairlife milk w almond milk 5 pm meal 3 forks protein and 3 forks veg 7-9 fit crunch bar drinking 40-60 oz daily Takes MVI Exercise routine includes: elliptical 7 days per week, then walking outside 300-350 calories ran for 2 miles recently has exercised 160 days in a row COUNT INCLUDES THE [facility] Medical History BMI 36.0-36.9,adult URI, acute Abnormal EKG Obesity Pre-diabetes Insomnia Anxiety Depression Morbid obesity Surgical History History of esophagogastroduodenoscopy (EGD) History of delivery Hx of breast reduction, elective Social History Household Members: Family Housing: Apartment Are you a primary nursing care partner to a significant other at home: No Do you presently have visiting nurse or other home services: No Alcohol intake: current Alcohol intake frequency: a few times a month Alcohol type: wine Patient Tobacco Use Status: Never used Tobacco Telehealth Telehealth Telehealth Platform: Telephone Location of provider rendering services: practice address Location of patient: address on file Patient Identification confirmed using: Name, : Yes Telehealth method: voice only Patient verbally consented to treatment: Yes Patient verbally consented to billing insurance company: Yes Patient informed of any privacy concerns related to visit: Yes Minutes spent on Phone/Video with Pt.: 14 Assessment & Plan Assessment & Plan (1) S/P laparoscopic sleeve gastrectomy: Code(s): Z98.84 - Bariatric surgery status Category: Surgical (2) Overweight: Code(s): E66.3 - Overweight Category: Medical Plan Discussed the option of adjusting meal plan with pt, however she would like to continue as above and try to be more consistent. I did give her the option of keeping same protein supplements but at different times, for example bar during first window and shake during second. She will continue exercise regimen. Labs ordered for complaints of positional dizziness. RTC 3mo TV. Orders: Orders Ferritin Today Z98.84 - Bariatric surgery status Vitamin D 25-OH Total Today Z.84 - Bariatric surgery status TSH reflex Free T4 Today Z98.84 - Bariatric surgery status C Reactive Protein Today Z98.84 - Bariatric surgery status Vitamin B1 Today Z98.84 - Bariatric surgery status Zinc Today Z98.84 - Bariatric surgery status Vitamin B12 and Folate Today Z98.84 - Bariatric surgery status Comprehensive Met. Panel Today Z.84 - Bariatric surgery status Complete Blood Count Auto Diff Today Z98.84 - Bariatric surgery status Lipid Panel Today Z98.84 - Bariatric surgery status Insulin Today Z98.84 - Bariatric surgery status Vitamin A Today Z98.84 - Bariatric surgery status IRON PROFILE Today Z98.84 - Bariatric surgery status Hemoglobin A1c Today Z98.84 - Bariatric surgery status
[2025-05-02 13:16] VITALS: BP 125/68; PULSE 63; TEMP 36.4; O2SAT 98; BMI 29.2
== END 2025-05-02 13:46 | disposition home or self-care (01) ==
LOC: HO.HBS 12:58
PROVIDERS: PCP Internal Medicine; Visit Provider Physician Assistant Surgical
DX: E66.3 Overweight (principal); Z68.29 Body mass index [BMI] 29.0-29.9, adult; Z90.3 Acquired absence of stomach [part of]; Z98.84 Bariatric surgery status
CPT/HCPCS: 98967

== ENCOUNTER 2025-05-03 06:59 | Outpatient (REF) | payer OTHER, SELFPAY ==
--- OUTSIDE RECORDS SUMMARY | 2025-05-03 07:01 | XMS_ITS | Clinical Summary ---
Author Organization [facility] Address [address] [place] [address] Phone Care Team Providers Care Newcomer Hostess Name Role Phone Carlotta Wilkinson MD Primary Care Provider Allergies No known active allergies Medications citalopram (CeleXA) 20 mg tablet Take 1 tablet (20 mg total) by mouth 1 (one) time each day. 90 each 1 5 Active etonogestreL-e thinyl estradioL (NUVARING) [...] FOR ANXIETY. 30 capsule 5 5 Active traZODone (DESYREL) 50 mg tablet Take 1 tablet (50 mg total) by mouth at bedtime as needed for sleep. 90 tablet 5 Active traZODone (DESYREL) 50 mg tablet TAKE 1 TABLET BY MOUTH AT BEDTIME NEEDED FOR SLEEP. 90 tablet 1 5 04/22/20 25 Discontin ued(Reord er) Active Problems Problem Noted Date Diagnosed Date Severe obesity (BMI 35.0-39. 9) with comorbidity (CMS/HCC V24, CMS/HCC V28) 03/26/2024 Prediabetes 03/27/2020 Major depressive disorder with single episode Anxiety and depression 12/05/2016 Leiomyoma of uterus 09/20/2009 Chronic back pain 06/23/2008 Encounters Date Type Department Care Team Description 04/06/2025 7:25 AM EDT - 04/06/2025 11:59 PM EDT [facility] [address] [id number] Encounter for screening mammogram for malignant neoplasm of breast Discharge Disposition: Home or Self Care from Last 3 Months Immunizations Immunization Administration Dates Next Due HPV, Quadrivalent 11/01/2008,06/30/2008,04/28/20 08 Hepatitis B (Etdhtcb-L-Vxuzf , Recombivax HB-Adult) 19yo and older 06/14/2020,01/07/2020,12/08/2019 [...] Date Recorded What is your living situation? Unrecognized valu e 09/05/2024 Comments No Sex and Gender Information Value Date Recorded Sex Assigned at Not on file Legal Sex Female 12:17 PM EST Gender Identity Not on file Sexual Orientation Not on file Obstetrics History Para Term AB IAB SAB Ectopic Multiple Livin g Live Births 1 06 09 1 1 Date Outcome GA Total Labor Labor//3rd Weight Sex Type Anes PTL Manasa A1 A5 Name Clin 2013 Term M CS-LT ranv Livin g 8 9 denise Brooke ns Delivery Location:[facility] Comments:3 dy inductio n, FTP Last Filed Vital Signs Vital Sign Reading Time Taken Comments Blood Pressure 110/64 12/22/2024 9:00 AM EDT Pulse 71 12/22/2024 9:00 AM EDT Temperature 35.8 C (96.4 F) 12/22/2024 9:00 AM EDT Respiratory Rate 16 12/22/2024 9:00 AM EDT Oxygen Saturation 99% 12/22/2024 9:00 AM EDT Inhaled Oxygen Concentration - - Weight 80.7 kg (178 lb) 04/06/2025 7:41 AM EDT Height 167.6 cm (5' 6 ) 04/06/2025 7:41 AM EDT Body Mass Index 28.73 04/06/2025 7:41 AM EDT Plan of Treatment Upcoming Encounters Date Type Department Care Team (Late st Contact Info) Description 06/24/2025 8:30 AM EST Office Visit Adult Medicine [facility] [address] [place] [address] Edyta Marte PA [address] [place] [address] Health Maintenance Due Date Last Done Comments HIV Screening 05/18/2022 Hepatitis C Screening 05/18/2022 COVID-19 Vaccine ( season) 2025 05/17/2022, 06/14/2021, 10/09/2020, Additional history exists Influenza Vaccine (#1) 2025 , 05/17/2022, 03/22/2020, Additional history exists Social Influencers of Health Screening 09/05/2025 09/05/2024 Cervical Cancer Screening: HPV 04/22/2026 04/22/2021 Breast Cancer Screening 04/06/2027 04/06/2025 Cholesterol Screening (Lipid Panel) 12/22/2029 12/22/2024 DTaP,Tdap,and Td Vaccines (3 - Td or Tdap) 02/10/2034 02/11/2024, 09/22/2013 RSV Immunization Adult Patients (1 - 1-dose 75+ series) 2060 HPV Vaccines Completed 11/01/2008, 06/10, 04/28/2008 MMR [...] Procedure Name Priority Date/Time Associated Diagnosis Comments MG MAMMO DIGITAL SCREENING W TRACE BILAT Routine 04/06/2025 7:56 AM EDT Encounter for screening mammogram for malignant neoplasm of breast LIPID PANEL WITH REFLEX TO DIRECT LDL Routine 12/22/2024 9:30 AM EDT Screening, lipid HM HPV Routine 04/22/2021 from Last 3 Months or Most Recently Relevant to Health Maintenance Results * MG Mammo Digital Screening w Trace bilat (04/06/2025 7:56 AM EDT) Anatomical Region Laterality Modality Breast Bilateral Mammography 04/06/2025 7:59 AM EDT Impressions 04/06/2025 8:45 AM EDT No mammographic evidence of malignancy. Findings consistent with prior reduction surgery A negative mammogram in the presence of a clinically suspicious palpable abnormality does not preclude the possibility of malignancy or alter the indications for biopsy. ASSESSMENT: BI-RADS 2: BENIGN RECOMMENDATION(S): 1: Routine screening mammogram BILATERAL in 1 year. [facility] location[facility] at [address], [address] -------- FINAL REPORT -------- Dictated By: Everton Ambrocio Dictated Date: 04/06/2025 07:59 ET Assigned Physician: Everton Ambrocio Reviewed and Electronically Signed By: Everton Ambrocio Signed Date: 04/06/2025 08:45 ET Workstation ID: [id number] Transcribed By: Self Edit Transcribed Date: 04/06/2025 07:59 ET Narrative 04/06/2025 8:45 AM EDT EXAM: SCREENING MAMMOGRAPHY, BILATERAL HISTORY: SCREENING. Prior breast reduction surgery 2009. COMPARISON: Initial exam TECHNIQUE: Synthesized CC and MLO projections of each breast. Tomosynthesis of each breast in the CC and MLO projections. ADDITIONAL IMAGING: None Computer-aided detection was employed with the [employer] AI 3-D. TISSUE DENSITY: There are scattered areas of fibroglandular density. (BI-RADS category B) FINDINGS: Pattern consistent with prior reduction surgery with clips on each side. RIGHT BREAST: No suspicious mass. No suspicious calcification. There is some dystrophic calcification in the 12 o'clock position. No additional suspicious right breast findings LEFT BREAST: No suspicious mass. No suspicious calcification. No additional suspicious left breast findings Procedure Note Everton Ambrocio MD - 04/06/2025 EXAM: SCREENING MAMMOGRAPHY, BILATERAL HISTORY: SCREENING. Prior breast reduction surgery 2009. COMPARISON: Initial exam TECHNIQUE: Synthesized CC and MLO projections of each breast.Tomosynthesis of each breast in the CC and MLO projections. ADDITIONAL IMAGING: None Computer-aided detection was employed with the [employer] AI 3-D. TISSUE DENSITY: There are scattered areas of fibroglandular density.(BI-RADS category B) FINDINGS: Pattern consistent with prior reduction surgery with clips on each side. RIGHT BREAST: No suspicious mass. No suspicious calcification. There is somedystrophic calcification in the 12 o'clock position. No additionalsuspicious right breast findings LEFT BREAST: No suspicious mass. No suspicious calcification. No additionalsuspicious left breast findings IMPRESSION: No mammographic evidence of malignancy. Findings consistent with prior reduction surgery A negative mammogram in the presence of a clinically suspicious palpableabnormality does not preclude the possibility of malignancy or alter theindications for biopsy. ASSESSMENT: BI-RADS 2: BENIGN RECOMMENDATION(S): 1: Routine screening mammogram BILATERAL in 1 year. [facility] location[facility] [address], [address] -------- FINAL REPORT -------- Dictated By: Everton Ambrocio Dictated Date: 04/06/2025 07:59 ET Assigned Physician: Everton Ambrocio Reviewed and Electronically Signed By: Everton Ambrocio Signed Date: 04/06/2025 08:45 ET Workstation ID: [id number] Transcribed By: Self Edit Transcribed Date: 04/06/2025 07:59 ET us Carlotta Wilkinson MD IMG BI PROCEDURES Final Result * Lipid panel with reflex to direct LDL (12/22/2024 9:30 AM EDT) Cholesterol 141 0 - 200 mg/dL LAB CHEMISTRY METHOD 12/22/2024 3:25 PM EDT [facility] Triglycerides 81 0 - 150 mg/dL LAB CHEMISTRY METHOD 12/22/2024 3:25 PM EDT [facility] HDL 58 >=40 mg/dL LAB CHEMISTRY METHOD 12/22/2024 3:25 PM EDT [facility] LDL Calculated 67 0 - 100 mg/dL LAB CHEMISTRY METHOD 12/22/2024 3:25 PM T [facility] VLDL Cholesterol Shakeel 16.2 mg/dL LAB CHEMISTRY METHOD 12/22/2024 3:25 PM EDT [facility] Non HDL Chol. (LDL+VLDL) 83 <145 mg/dL LAB CHEMISTRY METHOD 12/22/2024 3:25 PM EDT [facility] Chol/HDL Ratio 2.4 0.0 - 4.4 LAB CHEMISTRY METHOD 12/22/2024 3:25 PM T [facility] Blood Venous blood specimen / Unknown Venipuncture / Unknown 12/22/2024 9:30 AM EDT 12/22/2024 9:30 AM EDT Carlotta Wilkinson MD LAB BLOOD ORDERABLES Final Resul t [facility] [address] [place] [address], [place] [phone] * Cervical Cancer Screening: HPV (04/22/2021) Cervical Cancer Screening: HPV negative, abstracted Historical Provider HEALTH MAINTENANCE Final Result from Last 3 Months or Most Recently Relevant to Health Maintenance Insurance [employer] [facility] Care Teams Newcomer Hostess Relationship Specialty Start Date End Date Carlotta Wilkinson MD [address] [place] [address] PCP - General Internal Medicine 05/19/15
[2025-05-03 07:23] LABS: MANUAL DIFF FLAG NO
[2025-05-03 07:50] LABS: Hematocrit 38.3 % (37.0-47.0); Hemoglobin 12.3 g/dl (12.0-16.0); Imm Gran Abs Auto 0.01 X10*3/uL (0.00-0.03); Imm Gran Pct Auto 0.2 % (0.0-0.4); Lymphocytes Absolute Auto 1.9 X10*3/uL (1.2-4.9); Mean Corpuscular HGB Conc 32.1 g/dl (31.0-35.0); Mean Corpuscular Hemoglobin 28.0 pg (27.0-33.0); Mean Corpuscular Volume 87.0 fL (80.0-98.0); NRBC Abs Auto 0.000 X10*3/uL (0.0-0.012); NRBC Pct Auto 0.0 /100WBC (0.0-0.2); Platelet Count 264 X10*3/uL (160-400); Red Blood Count 4.40 X10*6/uL (4.20-5.50); White Blood Count 5.0 X10*3/uL (4.8-10.8)
[2025-05-03 08:23] LABS: Alanine Aminotransferase 24 U/L (0-31); Albumin Level 4.2 g/dL (3.5-5.0); Alkaline Phosphatase 66 U/L (39-117); Anion Gap 12 (12-20); Aspartate Amino Transferase 28 U/L (5-31); Blood Urea Nitrogen 11 mg/dL (9-16); Calcium 9.3 mg/dL (8.4-10.2); Carbon Dioxide 27 mmol/L (22-29); Chloride 107 mmol/L (96-108); Cholesterol 194 mg/dL (<200); Estimated Glomerular Filt Rate > 60; HDL Cholesterol 93 mg/dL (>40); Iron 147 mcg/dL (30-160); Percent Iron Saturation 46 % (15-50); Potassium 3.8 mmol/L (3.3-5.1); Sodium 142 mmol/L (135-145); Total Iron Binding Capacity 319 mcg/dL (228-428); Total Protein 7.4 g/dL (6.5-8.0); Triglycerides 73 mg/dL (<150); Unsaturated Iron Binding 172 ug/dL
[2025-05-03 08:38] LABS: Ferritin 112 ng/mL (10-250)
[2025-05-03 08:55] LABS: Folate 14.8 ng/mL (> or = 4.0); Vitamin B12 823 pg/mL (200-900)
== END 2025-05-03 07:00 | disposition home or self-care (01) ==
LOC: HO.LAB 06:59
PROVIDERS: PCP Internal Medicine; Visit Provider Physician Assistant Surgical
DX: Z13.6 Encounter for screening for cardiovascular disorders (principal); Z13.1 Encounter for screening for diabetes mellitus; Z13.29 Encounter for screening for other suspected endocrine disorder; Z98.84 Bariatric surgery status
CPT/HCPCS: 36415; 80053; 80061; 82306; 82607; 82728; 82746; 83036; 83525; 83540; 84425; 84443; 84590; 84630; 85025; 86140